=== PATIENT | female | born 1975 | race Caucasian/White ===

== ENCOUNTER 2023-02-20 07:06 | Emergency (ER) | payer OTHER, SELFPAY ==
[2023-02-20 07:09] VITALS: BP 133/95; PULSE 86; RESP 18; TEMP 36.4; O2SAT 100; BMI 30.1
--- NOTE | 2023-02-20 07:20 | CT_ITS ---
The [address] [address] Patient Name: MIRIAM CLARKE MRN: [id number] date: 1975 Sex: F Assigned Patient Location: ER Current Patient Location: ER Accession/Order Number: [id number] Exam Date: 02/20/2023 07:38 Report Date: 02/20/2023 08:05 At the request of: TOMMIE KAPLAN Procedure: CT abdomen pelvis wo con EXAM: CT abdomen pelvis wo con HISTORY: Right flank pain, hx kidney stones. COMPARISON: CT abdomen/pelvis dated 10/23/2021. TECHNIQUE: Routine CT abdomen/pelvis without intravenous contrast. FINDINGS: Right kidney: There are 0.6 cm and 0.2 cm nonobstructive calculi within the right renal pelvis. There is slight increased attenuation of the renal pyramids suggesting nephrocalcinosis. There is no pelvocaliectasis. There is no ureteral calculus or hydroureter. There is no bladder calculus. Left kidney: Stable atrophic left kidney. There are larger and more numerous calculi at the left UPJ and within the proximal left ureter, largest measuring 0.8 x 0.3 x 0.6 cm and 0.5 x 0.3 cm. There is worsened mild to moderate left pelvocaliectasis. The mid and distal left ureter are unremarkable. Lower chest: There is a 0.8 cm nodule within the right breast which is similar to the screening mammogram dated 06/14/2021. Stable 0.3 cm nodular density at the right posterior costophrenic angle. Liver: Stable Jaleesa's lobe configuration of the liver, a variant of normal, with the right lobe measuring 19.4 cm in longitudinal dimension. Gallbladder/biliary tree: Cholecystectomy. There is no biliary dilatation. Pancreas: Unremarkable. Spleen: Unremarkable. Adrenal glands: Unremarkable. Bowel: Nonobstructive bowel gas pattern with a moderate amount of stool within the colon. There are colonic diverticula without diverticulitis. There is inspissated mucus within the appendix which is otherwise unremarkable. The distal esophagus, stomach and small bowel are unremarkable. Inflammation: There is no free air, free fluid or inflammatory reaction. Vasculature: Mild atheromatous calcification abdominal aorta and iliac arteries. The IVC is unremarkable. Lymphadenopathy: There are no pathologically enlarged lymph nodes within the abdomen/pelvis. Pelvis: Previous hysterectomy. There are several pelvic phleboliths. Osseous: There is a stable compression fracture of the L1 vertebral body with less than 15% loss of height. There are degenerative changes at several levels along the spine. There is a 1.5 cm bone island within the left femoral neck. CT/CT abdomen pelvis wo con IMPRESSION: There are 0.6 cm and 0.2 cm nonobstructive calculi within the right renal pelvis. There is slight increased attenuation of the renal pyramids suggesting nephrocalcinosis. There is no pelvocaliectasis. There is no ureteral calculus or hydroureter. There is no bladder calculus. Stable atrophic left kidney. There are larger and more numerous calculi at the left UPJ and within the proximal left ureter, largest measuring 0.8 x 0.3 x 0.6 cm and 0.5 x 0.3 cm. There is worsened mild to moderate left pelvocaliectasis. The mid and distal left ureter are unremarkable. Nonobstructive bowel gas pattern with a moderate amount of stool within the colon. Colonic diverticula without diverticulitis. There is no inflammatory process. Additional chronic findings as described in the body the report. Electronically authenticated by: KARTHIKEYAN DOMINGUEZ Date: 02/20/2023 08:05
[2023-02-20] MEDS: KETOROLAC TROMETHAMINE 30 MG/ML VIAL IVP (07:30)
[2023-02-20] MEDS: ONDANSETRON PF 4 MG/2 ML VIAL IV (07:30)
[2023-02-20] MEDS: 0.9 % SODIUM CHLORIDE 1,000 ML 999 ML IV (07:30)
[2023-02-20 07:33] LABS: Basophils Absolute Auto 0.1 10^3/uL (0.0-0.1); Basophils Percent Auto 0.6 % (0.2-2.0); Eosinophils Absolute Auto 0.4 10^3/uL (0.0-0.7); Eosinophils Percent Auto 4.3 % (0.9-7.0); Hemoglobin 12.5 g/dL (12.0-16.0); Immature Granulocytes Abs Auto 0.02 10^3/uL (0.00-0.03); Immature Granulocytes Pct Auto 0.2 % (0.0-0.5); Lymphocytes Absolute Auto 3.8 10^3/uL (1.2-3.8); Mean Corpuscular HGB Conc 32.1 g/dL (29.9-35.2); Mean Corpuscular Hemoglobin 30.3 pg (26.7-34.0); Mean Corpuscular Volume 94.4 fL (81.0-99.0); Mean Platelet Volume 9.9 fL (9.5-13.5); Monocytes Absolute Auto 0.9 10^3/uL (0.3-0.8); Monocytes Percent Auto 9.2 % (1.7-12.0); Neutrophils Absolute Auto 4.2 10^3/uL (1.4-6.5); Neutrophils Percent Auto 44.7 % (43.0-75.0); Platelet Count 352 10^3/uL (150-450); Red Blood Count 4.13 10^6/uL (4.20-5.40); Red Cell Distribution Width 13.8 % (11.0-15.0); White Blood Count 9.3 10^3/uL (4.0-11.0)
--- NOTE | 2023-02-20 07:36 | ED.GENADUL1 ---
HPI - General Adult General Chief complaint: Urogenital-Female Stated complaint: right side back pain Time Seen by Provider: 02/20/23 07:10 Source: patient Mode of arrival: walk-in History of Present Illness HPI narrative: right flank pain while at work -a round 1am - without any known provocation, injury or activity to cause pain. She admits to prior kidney stones and says the pain is similar. Nausea but no vomiting. No fever or chills. No recent illness. No urinary symptoms. She took tylenol for pain without any improvement. Related Data Previous Rx's Medication Instructions Recorded cephalexin 500 mg capsule 500 mg PO BID 7 days #14 caps 02/20/23 hydrocodone 5 mg-acetaminophen 325 1 tab PO Q6H PRN pain 4 days #14 02/20/23 mg tablet tabs ketorolac 10 mg tablet 10 mg PO Q8H PRN pain #14 tabs 02/20/23 ondansetron 4 mg disintegrating 4 mg PO Q6H PRN nausea and 02/20/23 tablet vomiting #20 tabs tamsulosin 0.4 mg capsule (Flomax) 0.4 mg PO DAILY #14 caps 02/20/23 Allergies Allergy/AdvReac Type Severity Reaction Status Date / Time levofloxacin [From Levaquin] AdvReac Severe Verified 02/20/23 07:11 metoclopramide [From Reglan] AdvReac Severe Verified 02/20/23 07:11 Exam Narrative Exam Narrative: Nurses notes and vital signs reviewed and patient is not hypoxic. afebrile General: Well-appearing and in no apparent distress. Skin: Warm, dry, no pallor noted. No rash to flank. Eye: Pupils are equal, round and EOMI. No scleral icterus. Ears, Nose, Mouth, and Throat: Oral mucosa is moist Cardiovascular: Regular Rate and Rhythm without murmur, gallop or rub. Respiratory: No accessory muscle use or respiratory distress. Lungs are clear to auscultation, no wheezing, rales or rhonchi Back: Right CVA tenderness Musculoskeletal: normal ROM, no calf or popliteal tenderness, no lower extremity edema/swelling GI: Abdomen is soft, non-distended. Normal bowel sounds. Mild right sided tenderness to palpation. No rebound, guarding, or rigidity noted. Neurological: A&O x4. No cranial nerve dysfunction observed. No truncal ataxia. Moves all extremities. Sensation intact. Psychiatric: Cooperative and interactive. Normal mood and affect. Constitutional Vital Signs, click to edit/add: Last Vital Signs Temp 97.6 F 02/20/23 07:09 Pulse 86 02/20/23 07:09 Resp 18 02/20/23 07:09 BP 133/95 H 02/20/23 07:09 Pulse Ox 100 02/20/23 07:09 Course Vital Signs Vital signs: Vital Signs Temperature 97.6 F 02/20/23 07:09 Pulse Rate 86 02/20/23 07:09 Respiratory Rate 18 02/20/23 07:09 Blood Pressure 133/95 H 02/20/23 07:09 Pulse Oximetry 100 02/20/23 07:09 Temperature 97.6 F 02/20/23 07:09 Pulse Rate 86 02/20/23 07:09 Respiratory Rate 18 02/20/23 07:09 Blood Pressure 133/95 H 02/20/23 07:09 Pulse Oximetry 100 02/20/23 07:09 Medical Decision Making MDM Narrative Medical decision making narrative: Peripheral IV established blood drawn and sent for testing. Urine also obtained and sent for testing. The patient had a noncontrast CT scan of the abdomen/pelvis. Normal WBC, CMP notable for slightly elevated BUN and Cr. LFts and electrolytes normal. UA with trace leuk esterase. CT revealed multiple renal stones bilaterally with Left UPJ and proximal left ureteral stones but no right ureteral stones or hydroureter. Patient informed of results. She was discharged home with prescriptions for keflex, Flomax, Zofran, Toradol and [place]. She was given referral info for her urologist - she previously saw Dr Villalobos. ED return if worse. Lab Data Lab results reviewed: Yes I reviewed the patient's lab results Labs: Lab Results 02/20/23 Range/Units 07:14 WBC 9.3 (4.0-11.0) 10^3/uL RBC 4.13 L (4.20-5.40) 10^6/uL Hgb 12.5 (12.0-16.0) g/dL Hct 39.0 (36.0-48.0) % MCV 94.4 (81.0-99.0) fL MCH 30.3 (26.7-34.0) pg MCHC 32.1 (29.9-35.2) g/dL RDW 13.8 (11.0-15.0) % Plt Count 352 (150-450) 10^3/uL MPV 9.9 (9.5-13.5) fL Neut % (Auto) 44.7 (43.0-75.0) % Lymph % (Auto) 41.0 (20.5-60.0) % [place] % (Auto) 9.2 (1.7-12.0) % Eos % (Auto) 4.3 (0.9-7.0) % Baso % (Auto) 0.6 (0.2-2.0) % Neut # (Auto) 4.2 (1.4-6.5) 10^3/uL Lymph # (Auto) 3.8 (1.2-3.8) 10^3/uL [place] # (Auto) 0.9 H (0.3-0.8) 10^3/uL Eos # (Auto) 0.4 (0.0-0.7) 10^3/uL Baso # (Auto) 0.1 (0.0-0.1) 10^3/uL Abs Immat Gran (auto) 0.02 (0.00-0.03) 10^3/uL Imm/Tot Granulo (auto) 0.2 (0.0-0.5) % Sodium 141 (136-145) mmol/L Potassium 3.5 (3.5-5.1) mmol/L Chloride 103 (98-107) mmol/L Carbon Dioxide 27.0 (21.0-32.0) mmol/L Anion Gap 14.5 BUN 22.0 H (7.0-18.0) mg/dL Creatinine 1.22 H (0.55-1.02) mg/dL Est GFR ( Amer) 57 L (>=60) Est GFR (Non-Af Amer) 47 L (>=60) BUN/Creatinine Ratio 18.0 Glucose 99 (74-106) mg/dL Calcium 10.1 (8.5-10.1) mg/dL Total Bilirubin 0.3 (0.2-1.0) mg/dL AST 17 (15-37) U/L ALT 33 (14-59) U/L Alkaline Phosphatase 69 (46-116) U/L Total Protein 7.5 (6.4-8.2) g/dL Albumin 3.8 (3.4-5.0) g/dL Globulin 3.7 g/dL Albumin/Globulin Ratio 1.0 Urine Color Lt. yellow (YELLOW) Urine Clarity Clear (CLEAR) Urine pH 5.5 (5.0-9.0) Ur Specific Lavinia 1.025 (1.005-1.025) Urine Protein Negative (NEG/TRACE) mg/dL Urine Glucose (UA) Negative (NEGATIVE) mg/dL Urine Ketones Negative (NEGATIVE) mg/dL Urine Occult Blood Negative (NEGATIVE) Urine Nitrite Negative (NEGATIVE) Urine Bilirubin Negative (NEGATIVE) Urine Urobilinogen 0.2 (0.2-1.0) EU/dL Ur Leukocyte Esterase Trace A (NEGATIVE) Imaging Data CT scan - abdomen: Radiologist's impression: Patient Name: MIRIAM CLARKE MRN: [id number] date: 1975 Sex: F Assigned Patient Location: ER Current Patient Location: ER Accession/Order Number: [id number] Exam Date: 02/20/2023 07:38 Report Date: 02/20/2023 08:05 At the request of: TOMMIE KAPLAN Procedure: CT abdomen pelvis wo con EXAM: CT abdomen pelvis wo con HISTORY: Right flank pain, hx kidney stones. COMPARISON: CT abdomen/pelvis dated 10/23/2021. TECHNIQUE: Routine CT abdomen/pelvis without intravenous contrast. FINDINGS: Right kidney: There are 0.6 cm and 0.2 cm nonobstructive calculi within the right renal pelvis. There is slight increased attenuation of the renal pyramids suggesting nephrocalcinosis. There is no pelvocaliectasis. There is no ureteral calculus or hydroureter. There is no bladder calculus. Left kidney: Stable atrophic left kidney. There are larger and more numerous calculi at the left UPJ and within the proximal left ureter, largest measuring 0.8 x 0.3 x 0.6 cm and 0.5 x 0.3 cm. There is worsened mild to moderate left pelvocaliectasis. The mid and distal left ureter are unremarkable. Lower chest: There is a 0.8 cm nodule within the right breast which is similar to the screening mammogram dated 06/14/2021. Stable 0.3 cm nodular density at the right posterior costophrenic angle. Liver: Stable Jaleesa's lobe configuration of the liver, a variant of normal, with the right lobe measuring 19.4 cm in longitudinal dimension. Gallbladder/biliary tree: Cholecystectomy. There is no biliary dilatation. Pancreas: Unremarkable. Spleen: Unremarkable. Adrenal glands: Unremarkable. Bowel: Nonobstructive bowel gas pattern with a moderate amount of stool within the colon. There are colonic diverticula without diverticulitis. There is inspissated mucus within the appendix which is otherwise unremarkable. The distal esophagus, stomach and small bowel are unremarkable. Inflammation: There is no free air, free fluid or inflammatory reaction. Vasculature: Mild atheromatous calcification abdominal aorta and iliac arteries. The IVC is unremarkable. Lymphadenopathy: There are no pathologically enlarged lymph nodes within the abdomen/pelvis. Pelvis: Previous hysterectomy. There are several pelvic phleboliths. Osseous: There is a stable compression fracture of the L1 vertebral body with less than 15% loss of height. There are degenerative changes at several levels along the spine. There is a 1.5 cm bone island within the left femoral neck. IMPRESSION: There are 0.6 cm and 0.2 cm nonobstructive calculi within the right renal pelvis. There is slight increased attenuation of the renal pyramids suggesting nephrocalcinosis. There is no pelvocaliectasis. There is no ureteral calculus or hydroureter. There is no bladder calculus. Stable atrophic left kidney. There are larger and more numerous calculi at the left UPJ and within the proximal left ureter, largest measuring 0.8 x 0.3 x 0.6 cm and 0.5 x 0.3 cm. There is worsened mild to moderate left pelvocaliectasis. The mid and distal left ureter are unremarkable. Nonobstructive bowel gas pattern with a moderate amount of stool within the colon. Colonic diverticula without diverticulitis. There is no inflammatory process. Additional chronic findings as described in the body the report. Electronically authenticated by: KARTHIKEYAN DOMINGUEZ Date: 02/20/2023 08:05 Discharge Plan Discharge Chief Complaint: Urogenital-Female Clinical Impression: Kidney stones, UTI (urinary tract infection), Renal colic Patient Disposition: Home, Self-Care Time of Disposition Decision: 08:35 Prescriptions / Home Meds: New ondansetron 4 mg tablet,disintegrating 4 mg PO Q6H PRN (Reason: nausea and vomiting) Qty: 20 0RF tamsulosin [Flomax] 0.4 mg capsule 0.4 mg PO DAILY Qty: 14 0RF ketorolac 10 mg tablet 10 mg PO Q8H PRN (Reason: pain) Qty: 14 0RF cephalexin 500 mg capsule 500 mg PO BID 7 Days Qty: 14 0RF hydrocodone-acetaminophen 5-325 mg tablet 1 tab PO Q6H PRN (Reason: pain) 4 Days Qty: 14 0RF Rx Instructions: ICD 10 = N20 - kidney stone Instructions: Kidney Stones (ED), Urinary Tract Infection in Women (ED) Stand Alone Forms: Portal Instructions Referrals: Physician,Non-Staff, MD [Primary Care Provider] - 1 week Discharge Date/Time: 02/20/23 08:56
[2023-02-20 07:49] LABS: Bilirubin Urine NEGATIVE (NEGATIVE); Blood Urine NEGATIVE (NEGATIVE); Clarity Urine CLEAR (CLEAR); Color Urine LT. YELLOW (YELLOW); Glucose Urine UA NEGATIVE (NEGATIVE); Ketones Urine NEGATIVE (NEGATIVE); Leukocyte Esterase Urine TRACE (NEGATIVE); Nitrite Urine NEGATIVE (NEGATIVE); Protein Urine NEGATIVE (NEG/TRACE); Specific Gravity Urine 1.025 (1.005-1.025); Urobilinogen Urine 0.2 EU/dL (0.2-1.0); pH Urine 5.5 (5.0-9.0)
[2023-02-20 07:53] LABS: Alanine Aminotransferase 33 U/L (14-59); Albumin Level 3.8 g/dL (3.4-5.0); Alkaline Phosphatase 69 U/L (46-116); Anion Gap 14.5; Aspartate Amino Transferase 17 U/L (15-37); Bilirubin Total 0.3 mg/dL (0.2-1.0); Calcium 10.1 mg/dL (8.5-10.1); Chloride 103 mmol/L (98-107); Estimated GFR (African America 57 (>=60); Estimated GFR (Non-African Ame 47 (>=60); Globulin 3.7 g/dL; Glucose 99 mg/dL (74-106); Potassium 3.5 mmol/L (3.5-5.1); Sodium 141 mmol/L (136-145); Total Protein 7.5 g/dL (6.4-8.2)
[2023-02-20 07:54] LABS: Urine Microscopic Indicated NO
[2023-02-20] MEDS: HYDROMORPHONE HCL 1 MG/ML CARTRIDGE IV (08:31)
== END 2023-02-20 08:56 | disposition home or self-care (01) ==
PROVIDERS: Emergency Provider Emergency Medicine
DX: N39.0 Urinary tract infection, site not specified (principal); N20.0 Calculus of kidney; Z90.49 Acquired absence of other specified parts of digestive tract; Z87.442 Personal history of urinary calculi
CPT/HCPCS: 36415; 74176; 80053; 81003; 85025; 96374; 96375; 99284; J1170

== ENCOUNTER 2023-02-21 21:59 | Emergency (ER) | payer OTHER, SELFPAY ==
[2023-02-21 22:08] VITALS: BP 117/70; PULSE 74; RESP 18; TEMP 37.2; O2SAT 99; BMI 31.1
--- OUTSIDE RECORDS SUMMARY | 2023-02-21 22:09 | XMS_ITS | CCD ---
Author Name Unknown Address [address] [facility] [address] [place] [address] Organization [facility] Care Team Providers Care Can Line Operator Name Role Phone KEVIN CASTILLO Primary Care Physician KRISTY ., DR KEVIN Lipscomb Primary Care Unavailable TEJ ., DR MCDUFFIE Admitting Unavailable TEJ ., DR MCDUFFIE Attending Unavailable CASTILLO ., DR KEVIN Lipscomb Consulting Unavailable CASTILLO ., DR KEVIN Lipscomb Primary Care Unavailable CASTILLO ., DR KEVIN Lipscomb Attending Unavailable CASTILLO ., DR KEVIN Lipscomb Admitting Unavailable CANDACE, DR STEFAN Schuster Consulting Unavailable CASTILLO ., DR KEVIN Lipscomb Primary Care Unavailable DIVINA CEDILLO Attending Unavailable KENNEY ., BOBO MARTINEZ Consulting UnavailDIVINA Olivares Admitting Unavailable CANDACE, DR STEFAN Schuster Consulting Unavailable WILFREDO .MYRA Attending Unavailable CASTILLO ., DR KEVIN Lipscomb Primary Care Unavailable LUE .MYRA Admitting Unavailable RUTHIE GABRIEL Consulting Unavailable LUE ., MYRA Damian Consulting Unavailable LUE ., MYRA Damian Attending Unavailable CASTILLO ., DR KEVIN Lipscomb Primary Care Unavailable LUE .MYRA Admitting Unavailable LUE ., MYRA Damian Consulting Unavailable CASTILLO ., DR KEVIN Lipscomb Primary Care Unavailable BARDALES ., DR WHITNEY Brand Attending Unavailable BARDALES ., DR WHITNEY Brand Admitting Unavailable CASTILLO ., DR KEVIN Lipscomb Primary Care Unavailable GLADIS ., HARRY Attending Unavailable SAADIA SUNSHINE Consulting Unavailable GLADIS ., HARRY Admitting Unavailable GLADIS ., HARRY Consulting Unavailable MICHELLE SMITH Consulting Unavailable KENNEY ., BOBO MARTINEZ Consulting Unavailrenae NUNEZ, DR GIL Bond Admitting Unavailrenae NUNEZ, DR GIL Bond Attending Unavailrenae e CASTILLO ., DR KEVIN Lipscomb Primary Care Unavailable SERA SCHULER Consulting Unavailable CASTILLO ., DR KEVIN Lipscomb Consulting Unavailable CASTILLO ., DR KEVIN Lipscomb Primary Care Unavailable CASTILLO ., DR KEVIN Lipscomb Attending Unavailable CASTILLO ., DR KEVIN Lipscomb Admitting Unavailable ZIEBER, DR ARAMIS Caldwell Consulting Unavailable ROSA MARIA MARTINEZ ., DR SILVIO Barrett Admitting Unavaila ble ROSA MARIA MARTINEZ ., DR SILVIO Barrett Consulting Unavaila ble CASTILLO ., DR KEVIN Lipscomb Primary Care Unavailable CRANE JR ., DR SILVIO Barrett Attending Unavaila ble POLICARO, TAMMIE Consulting Unavailable CASTILLO ., DR KEVIN Lipscomb Primary Care Unavailable LUE ., MYRA Damian Admitting Unavailable LUE ., MYRA Damian Attending Unavailable MISC, DR LEBRON Consulting Unavailable CASTILLO ., DR EKVIN Lipscomb Primary Care Unavailable MISC, DR LEBRON Attending Unavailable MISC, DR LEBRON Admitting Unavailable CASTILLO ., DR KEVIN Lipscomb Primary Care Unavailable CASTILLO ., DR KEVIN Lipscomb Consulting Unavailable CASTILLO ., DR KEVIN Lipscomb Attending Unavailable CASTILLO ., DR KEVIN Lipscomb Admitting Unavailable ZIEBER, DR ARAMIS Caldwell Consulting Unavailable CASTILLO ., DR KEVIN Lipscomb Primary Care Unavailable TEJ ., DR MCDUFFIE Admitting Unavailable TEJ ., DR CMDUFFIE Consulting Unavailable TEJ ., DR MCDUFFIE Attending Unavailable CASTILLO ., DR KEVIN Lipscomb Attending Unavailable CASTILLO ., DR KEVIN Lipscomb Primary Care Unavailable CASTILLO ., DR KEVIN Lipscomb Consulting Unavailable CASTILLO ., DR KEVIN Lipscomb Admitting Unavailable MD Cory Story Attending Unavailable MD Cory Story Attending Unavailable Unavailable Unavailable Unavailable Allergies Allergy Classification Reported Allergen(s) Allergy Type Date of Onset Reaction(s) Facility (4 sources) levoFLOXacin; Translations: [Levofloxacin] Drug Allergy Unknown (qualifier value) [facility] (4 sources) Metoclopramide; Translations: [Metoclopramide ] Drug Allergy Unknown (qualifier value) [facility] (6 sources) Penicillins; Translations: [penicillins] Allergy to substance Unknown (qualifier value) [facility] (3 sources) Iothalamate; Translations: [Reglan] Drug Allergy 4 [facility] (3 sources) levoFLOXacin; Translations: [Levaquin] Drug Allergy 6 [facility] (2 sources) Penicillin Drug Allergy 7 [facility] Medications Current Medications Medication Drug Class(es) Dates Sig (Normalized) Sig (Original) amitriptyline hydrochloride 10 mg oral tablet (1 source) Tricyclic Antidepressant Start: 04-04-2018 take 20 mg by mouth once daily at bedtime Amitriptyline Active 20 MG Oral Daily at bedtime April 04, 2018 12:09pm Cymbalta 30 mg Cap-DR (2 sources) Start: 09-21-2020 take 1 mg by mouth twice daily Cymbalta 30 mg Cap-DR mg, Oral, BID, Refills(s) 0 Start Date: 09/21/20 Status: Ordered diclofenac sodium 50 mg delayed release oral tablet (1 source) Nonsteroidal Anti-inflammatory Drug Start: 10-20-2021 take 1 tablet by mouth three times daily as needed for pain diclofenac sodium 50 mg Oral EC Tab 50 mg = 1 tab(s), Oral, TID, PRN as needed for pain, # 60 tab(s), Refills(s) 0, Pharmacy: [facility]/pharmacy #[id number], 161, cm, 10/20/21 9:24:00 EDT, Height/Length Dosing, 94, kg, 10/20/21 9:24:00 EDT, Weight Dosing Start Date: 10/20/21 Status: Ordered DULoxetine 30 mg delayed release oral capsule (1 source) Serotonin and Norepinephrine Reuptake Inhibitor Start: 09-21-2020 take 1 mg by mouth twice daily Cymbalta 30 mg Cap-DR mg, Oral, BID, Refills(s) 0 Start Date: 09/21/20 Status: Ordered gabapentin 300 mg oral capsule (3 sources) Anti-epileptic Agent Start: 08-03-2021 gabapentin 300 mg Cap Refills(s) 0 Start Date: 08/03/21 Status: Ordered meloxicam 15 mg oral tablet (1 source) Nonsteroidal Anti-inflammatory Drug Start: 04-04-2018 take 15 mg by mouth once daily Meloxicam Active 15 MG Oral daily April 04, 2018 12:09pm predniSONE (3 sources) Start: 08-03-2021 predniSONE 10 mg Tab Refills(s) 0 Start Date: 08/03/21 Status: Ordered SUMAtriptan 50 mg oral tablet (1 source) Serotonin-1b and Serotonin-1d Receptor Agonist Start: 04-04-2018 take 50 mg by mouth twice daily Sumatriptan Succinate Active 50 MG Oral Twice daily April 04, 2018 12:09pm tamsulosin hydrochloride 0.4 mg oral capsule (1 source) alpha-Adrenergic Vicky Start: 10-20-2021 take 1 capsule by mouth once daily Flomax 0.4 mg Cap 0.4 mg = 1 cap(s), Oral, Daily, # 30 cap(s), Refills(s) 0, Pharmacy: [facility]/pharmacy #[id number], 161, cm, 10/20/21 9:24:00 EDT, Height/Length Dosing, 94, kg, 10/20/21 9:24:00 EDT, Weight Dosing Start Date: 10/20/21 Status: Ordered Problems Active Problems Problem Classification Problem Date Documented Date Episodic/Chronic Calculus of urinary tract (16 sources) Kidney stone; Translations: [Calculus of kidney] Onset: 08-03-2021 Episodic Disorders of teeth and jaw (4 sources) Other specified disorders of teeth and supporting structures; Translations: [OTH SPEC DISORDERS TEETH SUPP STRCT] Onset: 03-24-2022 Episodic Immunizations and screening for infectious disease (2 sources) Carrier or suspected carrier of Methicillin resistant Staphylococcus aureus; Translations: [Encounter for screening for human papillomavirus (HPV)] Onset: 10-27-2021 Episodic Other aftercare (1 source) Other skilled nursing (current) drug therapy; Translations: [OTH MCC CURRENT DRUG THERAPY] Onset: 03-28-2022 Episodic Other connective tissue disease (1 source) Fibromyalgia; Translations: [FIBROMYALGIA] Onset: 03-28-2022 Episodic Other lower respiratory disease (1 source) Personal history of pneumonia (recurrent); Translations: [PERSONAL HX OF PNEUMONIA RECURRENT] Onset: 03-28-2022 Episodic Other nervous system disorders (1 source) Atypical facial pain; Translations: [ATYPICAL FACIAL PAIN] Onset: 03-28-2022 Episodic Residual codes; unclassified (1 source) Acquired absence of other specified parts of digestive tract; Translations: [ACQ ABSENCE OTH PART DIGESTV TRACT] Onset: 03-28-2022 Episodic Residual codes; unclassified (1 source) Acquired absence of both cervix and uterus; Translations: [ACQUIRED ABSENCE BOTH CERVIX AND UTERUS] Onset: 03-28-2022 Episodic Substance-related disorders (1 source) Nicotine dependence, cigarettes, uncomplicated; Translations: [NICOTINE DEPEND CIGARETTES UNCOMP] Onset: 03-28-2022 Chronic Unclassified (3 sources) Asymptomatic microscopic hematuria 09-21-2020 Unclassified (4 sources) CONTACT W/AND (SUSP) EXPOS COVID-19; Translations: [CONTACT W/AND (SUSP) EXPOS COVID-19] Onset: 10-21-2021 Past or Other Problems Problem Classification Problem Date Documented Date Episodic/Chronic Abdominal pain (9 sources) Abdominal pain; Translations: [Unspecified abdominal pain] Onset: 08-03-2021 Episodic E Codes: Fall (1 source) Fall on same level from slipping, tripping and stumbling without subsequent striking against object, initial encounter; Translations: [FALL SAME LVL SLIP NO STRK OBJ INIT] Onset: 06-08-2021 Episodic Genitourinary symptoms and ill-defined conditions (9 sources) Nocturia; Translations: [Poor stream of urine] Onset: 10-27-2021 09-21-2020 Episodic Nonmalignant breast conditions (7 sources) Unspecified lump in the right breast, upper outer quadrant; Translations: [Unspecified lump in the right breast, lower inner quadrant] Onset: 06-16-2021 Episodic Other connective tissue disease (1 source) Synovial cyst of popliteal space [Brock], right knee; Translations: [SYNOVIAL CYST POP SPACE RIGHT KNEE] Onset: 06-08-2021 Episodic Other diseases of kidney and ureters (1 source) Hydronephrosis with renal and ureteral calculous obstruction; Translations: [HYDRONPHROS RENL AND URETRL CALCUL OBST] Onset: 10-25-2021 Episodic Other non-traumatic joint disorders (3 sources) Pain in right knee; Translations: [PAIN IN RIGHT KNEE] Onset: 06-06-2021 Episodic Other screening for suspected conditions (not mental disorders or infectious disease) (13 sources) Encounter for screening for malignant neoplasm of cervix; Translations: [Other abnormal and inconclusive findings on diagnostic imaging of breast] Onset: 06-14-2021 Episodic Residual codes; unclassified (1 source) Family history of malignant neoplasm of breast; Translations: [FAMILY HX MALIG NEOPLASM OF BREAST] Onset: 06-16-2021 Episodic Residual codes; unclassified (1 source) Family history of malignant neoplasm of bladder; Translations: [FAM HX MALIGNANT NEOPLASM BLADDER] Onset: 06-16-2021 Episodic Residual codes; unclassified (1 source) Family history of malignant neoplasm of ovary; Translations: [FAM HX MALIGNANT NEOPLASM OVARY] Onset: 06-16-2021 Episodic Residual codes; unclassified (1 source) Family history of malignant neoplasm of prostate; Translations: [FAMILY HX MALIG NEOPLASM PROSTATE] Onset: 06-16-2021 Episodic Sprains and strains (1 source) Sprain of unspecified site of right knee, initial encounter; Translations: [SPRAIN UNS SITE RT KNEE INITIAL] Onset: 06-08-2021 Episodic Unclassified (1 source) CONTACT W/AND (SUSP) EXPOS COVID-19; Translations: [CONTACT W/AND (SUSP) EXPOS COVID-19] Onset: 10-19-2021 Urinary tract infections (5 sources) Urinary tract infectious disease; Translations: [Urinary tract infection, site not specified] Onset: 08-03-2021 Episodic Results Test Name Value Interpretation Reference Range Facil ity Provider Letteron 02-02-2023 Provider Letter [address] [place] [address] February 02, 2023 MIRIAM BRYAN [address] [place] [id number] : 1975 To Whom It May Concern, Please excuse above patient from work. May Return to Work On:02/02/2023 Sincerely, DHEERAJ Cortez Normal [facility] Ambulatory Visit Summaryon 1 04-02-2022 Ambulatory Visit Summary MIRIAM BRYAN :1975 Visit Date:01/30/2023 Ambulatory Visit Instructions Your Diagnosis COVID-19 Excessive dietary caloric intake Your Care Team Attending Physician - Cory Story MD Primary Care Physician - KRISTY PASTRANA, KEVIN Lipscomb This Is Your Medications List azithromycin (azithromycin 250 mg Tab 5-day Dose Pack (Z-Rishi)) benzonatate (benzonatate 200 mg oral capsule) methylPREDNISolone (Medrol Dosepack 4 mg Tab) semaglutide (Ozempic 2 mg/3 mL (0.25 mg or 0.5 mg dose) subcutaneous solution) Procedures Performed ESWL - Extracorporeal shockwave lithotripsy for renal calculus (2013). What to do next Scheduled Follow-Up Appointments Sunday 8:30 AM EST With: Cory Story MD Where: [facility] Normal [facility] PAP ACOG PANEL 2: 30 to 65on 11-03-[address] [facility] Comment on above: Result Comment: Perf ormed at: WB Performed By: #### [id number] #### [facility] [address] [address] [address] Norah Campbell Age Gdln ACOG Testing 30-65 [facility] Comment on above: Performed By: #### [id number] #### [facility] [address] [address] [address] Norah Campbell DIAGNOSIS: Comment [facility] Comment on above: Result Comment: NEGA TIVE FOR INTRAEPITHELIAL LESION OR MALIGNANCY. Performed at: WB Performed By: #### [id number] #### [facility] [address] [place] [address] Dr. Norah Campbell HPV Aptima Negative Normal Negative [facility] Comment on above: Result Comment: This nucleic acid amplification test detects fourteen high-risk HPV types (16,18,31,33,35,39,45,51,52,56,58,59,66,68) without differentiation. Performed at: =G Performed By: #### [id number] #### [facility] [address] [address] [address] Norah Campbell Methodology: Comment [facility] Comment on above: Result Comment: This liquid based ThinPrep(R) pap test was screened with the use of an image guided system. Performed at: WB Performed By: #### [id number] #### [facility] [address] [address] [address] Norah Campbell Note: Comment [facility] Comment on above: Result Comment: The Pap smear is a screening test designed to aid in the detection of premalignant and malignant conditions of the uterine cervix. It is not a diagnostic procedure and should not be used as the sole means of detecting cervical cancer. Both false-positive and false-negative reports do occur. . Performed at: WB Performed By: #### [id number] #### [facility] [address] [address] [address] Norah Campbell Performed by: Comment Normal [facility] Comment on above: Result Comment: Tigist Keyes, Refrigerator Tester (ASCP) Performed at: WB Performed By: #### [id number] #### [facility] [address] [place] [address] Dr. Norah Campbell Specimen adequacy: Comment Normal [facility] Comment on above: Result Comment: Sati sfactory for evaluation. Performed at: WB Performed By: #### [id number] #### [facility] [address] [place] [address] Dr. Norah Campbell XR KUB 1 VIEWon 11-02-2021 XR KUB 1 VIEW EXAMINATION: XR KUB 1 VIEW HISTORY: Urolithiasis COMPARISON: 10/11/2021, CT 10/23/2021 FINDINGS: KIDNEY/URETER - RIGHT: No visible renal or ureteral calcifications. KIDNEY/URETER - LEFT: No visible renal or ureteral calcifications. PELVIS: No visible ureteral calcifications. Any visible calcifications favor phleboliths. BOWEL: No abnormal dilation or deviation. BONES: No acute abnormality. OTHER: Negative. No abnormal gaseous collections. IMPRESSION: No definite urinary tract calculi, the calcifications seen by CT exam not definitively seen on plain x-ray Electronically authenticated by: STEFAN MARIA Date: 2021-11-02 11:19 Normal [facility] CBC AUTO DIFFon 10-26-2021 BASO # 0.0 103/ul Normal 0.0-0.1 [facility] Comment on above: Performed By: #### C BC #### [facility] [address] [place] [address] Dr. Norah Campbell Basophils/100 WBC (Bld) 0.3 % Normal 0.2-2.0 [facility] Comment on above: Performed By: #### C BC #### [facility] [address] [place] [address] Dr. Norah Campbell EO # 0.6 103/ul Normal 0.0-0.7 [facility] Comment on above: Performed By: #### C BC #### [facility] [address] [place] [address] Dr. Norah Campbell Eosinophils/100 WBC (Bld) 5.9 % Normal 0.9-7.0 [facility] Comment on above: Performed By: #### C BC #### [facility] [address] [place] [address] Dr. Norah Campbell Erythrocyte distribution width (RBC) [Ratio] 14.6 % Normal 11.0-15.0 [facility] Comment on above: Performed By: #### C BC #### [facility] [address] [place] [address] Dr. Norah Campbell Hematocrit (Bld) [Volume fraction] 38.7 % Normal 36.0-48.0 [facility] Comment on above: Performed By: #### C BC #### [facility] [address] [place] [address] Dr. Norah Campbell Hemoglobin (Bld) [Mass/Vol] 12.4 g/dL Normal 12.0-16.0 [facility] Comment on above: Performed By: #### C BC #### [facility] [address] [place] [address] Dr. Norah Campbell IG # 0.03 10e3/ul Normal 0.00-0.03 [facility] Comment on above: Performed By: #### C BC #### [facility] [address] [place] [address] Dr. Norah Campbell IG % 0.3 % Normal 0.0-0.5 [facility] Comment on above: Performed By: #### C BC #### [facility] [address] [place] [address] Dr. Norah Campbell LYMPH # 3.5 103/ul Normal 1.2-3.8 [facility] Comment on above: Performed By: #### C BC #### [facility] [address] [place] [address] Dr. Norah Campbell Lymphocytes/100 WBC (Bld) 34.3 % Normal 20.5-60.0 [facility] Comment on above: Performed By: #### C BC #### [facility] [address] [place] [address] Dr. Norah Campbell MANUAL DIFF REQ NO Normal [facility] Comment on above: Performed By: #### C BC #### [facility] [address] [address] [address] Norah Campbell MCH (RBC) [Entitic mass] 29.5 pg Normal 26.7-34.0 [facility] Comment on above: Performed By: #### C BC #### [facility] [address] [place] [address] Dr. Norah Campbell MCHC (RBC) [Mass/Vol] 32.0 g/dL Normal 29.9-35.2 [facility] Comment on above: Performed By: #### C BC #### [facility] [address] [place] [address] Dr. Norah Campbell MCV (RBC) [Entitic vol] 91.9 fL Normal 81.0-99.0 [facility] Comment on above: Performed By: #### C BC #### [facility] [address] [place] [address] Dr. Norah Campbell MONO # 0.8 103/ul Normal 0.3-0.8 [facility] Comment on above: Performed By: #### C BC #### [facility] [address] [place] [address] Dr. Norah Campbell Monocytes/100 WBC (Bld) 8.2 % Normal 1.7-12.0 [facility] Comment on above: Performed By: #### C BC #### [facility] [address] [place] [address] Dr. Norah Campbell NEUT # 5.2 103/ul Normal 1.4-6.5 [facility] Comment on above: Performed By: #### C BC #### [facility] [address] [place] [address] Dr. Norah Campbell Neutrophils/100 WBC (Bld) 51.0 % Normal 43.0-75.0 [facility] Comment on above: Performed By: #### C BC #### [facility] [address] [place] [address] Dr. Norah Campbell Platelet mean volume (Bld) [Entitic vol] 9.8 fL Normal 9.5-13.5 [facility] Comment on above: Performed By: #### C BC #### [facility] [address] [place], [place] [address] Dr. Norah Campbell PLT 337 103/ul Normal 150-450 [facility] Comment on above: Performed By: #### C BC #### [facility] [address] [place], [place] [address] Dr. Norah Campbell RBC 4.21 106/ul Normal 4.20-5.40 [facility] Comment on above: Performed By: #### C BC #### [facility] [address] [place], [place] [address] Dr. Norah Campbell WBC 10.3 103/ul Normal 4.0-11.0 [facility] Comment on above: Performed By: #### C BC #### [facility] [address] [place], [place] [address] Dr. Norah Campbell CULTURE URINEon 10-26-2021 CULTURE URINE Isolate 1 Proteus mirabilis 100,000 cfu/mL of ORGANISM 1 Proteus mirabilis ANTIBIOTIC M.I.C RX STATUS Ampicillin <=2 S F Ampicillin/Sulbactam <=2 S F Piperacillin/Tazobacta m <=4 S F Cefazolin <=4 S F Ceftazidime <=1 S F Ceftriaxone <=1 S F Ertapenem <=0.5 S F Imipenem 2 S F Amikacin <=2 S F Gentamicin <=1 S F Tobramycin <=1 S F Ciprofloxacin <=0.25 S F Levofloxacin <=0.12 S F Nitrofurantoin 128 R F Trimethoprim/Sulfameth oxazole <=20 S F Normal [facility] Comment on above: Performed By: #### U RCX ####[facility] [address] [place], [place] [address]PlDr. Norah Campbell Covid-19 PCR (CVDTBH)on 09-28 SARS-CoV-2 (COVID-19) RNA DAVID+probe Ql (Unsp spec) Not detected Normal NOT DETECTED [facility] Comment on above: Result Comment: This test is not yet approved or cleared by the [place] FDA. When there are no FDA-approved or cleared tests available, and other criteria are met, FDA can make tests available under an emergency access mechanism called an Emergency Use Authorization (EUA). The EUA for this test is supported by the [place] Inspector of Health and Human Service's (HHS's) declaration that circumstances exist to justify the emergency use of in vitro diagnostics for the detection and/or diagnosis of the virus that causes COVID-19. This EUA will remain in effect (meaning this test can be used) for the duration of the COVID-19 declaration justifying emergency of IVDs, unless it is terminated or revoked by FDA (after which the test may no longer be used). When diagnostic testing is negative, the possibility of a false negative should be considered in the context of a patient's recent exposures and the presence of clinical signs and symptoms consistent with SARS-CoV-2. Performed By: #### [facility] ####[facility] [id number] [address]Dr. Norah Campbell PROF CHEM 8 (BAS METB)on Anion gap [Moles/Vol] 11.4 mmol/L Normal [facility] Comment on above: Performed By: #### B MP #### [facility] [address] [address] [address] Norah Campbell Calcium [Mass/Vol] 9.4 mg/dL Normal 8.5-10.1 [facility] Comment on above: Performed By: #### B MP #### [facility] [address] [address] [address] Norah Campbell Chloride [Moles/Vol] 104 mmol/L Normal 98-107 [facility] Comment on above: Performed By: #### B MP #### [facility] [address] [address] [address] Norah Campbell CO2 [Moles/Vol] 31.7 mmol/L Normal 21.0-32.0 [facility] Comment on above: Performed By: #### B MP #### [facility] [address] [address] [address] Norah Campbell Creatinine [Mass/Vol] 1.40 mg/dL Critically high 0.55-1.02 [facility] Comment on above: Performed By: #### B MP #### [facility] [address] [address] [address] Norah Campbell EGFR-AF SWISS 49 mL/min/1.73m2 Critically low >=60 [facility] Comment on above: Performed By: #### B MP #### [facility] [address] [address] [address] Norah Campbell EGFR-NON AF SWISS 40 mL/min/1.73m2 Critically low >=60 [facility] Comment on above: Performed By: #### B MP #### [facility] [address] [address] [address] Norah Campbell Glucose [Mass/Vol] 104 mg/dL Normal 74-106 [facility] Comment on above: Performed By: #### B MP #### [facility] [address] [address] [address] Norah Campbell Potassium [Moles/Vol] 4.1 mmol/L Normal 3.5-5.1 [facility] Comment on above: Performed By: #### B MP #### [facility] [address] [address] [address] Norah Campbell Sodium [Moles/Vol] 143 mmol/L Normal 136-145 [facility] Comment on above: Performed By: #### B MP #### [facility] [address] [address] [address] Norah Campbell Urea nitrogen [Mass/Vol] 26.0 mg/dL Critically high 7.0-18.0 [facility] Comment on above: Performed By: #### B MP #### [facility] [address] [address] [address] Norah Campbell Urea nitrogen/Creatinin e [Mass ratio] 18.6 mg/mg Normal [facility] Comment on above: Performed By: #### B MP #### [facility] [address] [address] [address] Norah Campbell PROTIMEon 10-26-2021 INR Coag (PPP) [Relative time] 0.95 {INR} Normal [facility] Comment on above: Performed By: #### P T, PTT ####[facility] [address] [address]Dr. Norah Campbell INR GUIDELINES SEE BELOW Normal [facility] Comment on above: Result Comment: AKI RED INR: 2.0 - 3.0 CONDITIONS NOT LISTED BELOW 2.5 - 3.5 FOR PROSTHETIC HEART VALVE REPLACEMENT 2.5 - 3.5 RECURRENT THROMBOSIS Performed By: #### P T, PTT ####[facility] [address] [place], [place] [address]Dr. Norah Campbell PT Coag (PPP) [Time] 10.3 s Normal 9.0-11.6 [facility] Comment on above: Performed By: #### P T, PTT ####[facility] [address] [place], [place] [address]Dr. Norah Campbell PTTon 10-26-2021 aPTT Coag (Bld) [Time] 23.9 s Normal 22.3-36.2 [facility] Comment on above: Performed By: #### P T, PTT ####[facility] [address] [place], [place] [address]Dr. Norah Campbell CBC AUTO DIFFon 10-23-2021 BASO # 0.0 103/ul Normal 0.0-0.1 [facility] Comment on above: Performed By: #### C BC ####[facility] [address] [place], [place] [address]Dr. Norah Campbell Basophils/100 WBC (Bld) 0.3 % Normal 0.2-2.0 [facility] Comment on above: Performed By: #### C BC ####[facility] [address] [place], [place] [address]Dr. Norah Campbell EO # 0.0 103/ul Normal 0.0-0.7 [facility] Comment on above: Performed By: #### C BC ####[facility] [address] [place], [place] [address]Dr. Norah Campbell Eosinophils/100 WBC (Bld) 0.7 % Critically low 0.9-7.0 [facility] Comment on above: Performed By: #### C BC ####[facility] [address] [address]Dr. Norah Campbell Erythrocyte distribution width (RBC) [Ratio] 14.2 % Normal 11.0-15.0 [facility] Comment on above: Performed By: #### C BC ####[facility] [address] [address]Dr. Norah Campbell Hematocrit (Bld) [Volume fraction] 39.8 % Normal 36.0-48.0 [facility] Comment on above: Performed By: #### C BC ####[facility] [address] [place], [place] [address]Dr. Norah Campbell Hemoglobin (Bld) [Mass/Vol] 12.6 g/dL Normal 12.0-16.0 [facility] Comment on above: Performed By: #### C BC ####[facility] [address] [place], [place] [address]Dr. Norah Campbell IG # 0.05 10e3/ul Critically high 0.00-0.03 [facility] Comment on above: Performed By: #### C BC ####[facility] [address] [place], [place] [address]Dr. Norah Campbell IG % 0.9 % Critically high 0.0-0.5 [facility] Comment on above: Performed By: #### C BC ####[facility] [address] [place], [place] [address]Dr. Norah Campbell LYMPH # 1.3 103/ul Normal 1.2-3.8 [facility] Comment on above: Performed By: #### C BC ####[facility] [address] [place], [place] [address]Dr. Norah Campbell Lymphocytes/100 WBC (Bld) 22.1 % Normal 20.5-60.0 [facility] Comment on above: Performed By: #### C BC ####[facility] [address] [place], [place] [address]Dr. Norah Campbell MANUAL DIFF REQ NO Normal [facility] Comment on above: Performed By: #### C BC ####[facility] [address] [id number]. Norah Adrian MCH (RBC) [Entitic mass] 29.0 pg Normal 26.7-34.0 [facility] Comment on above: Performed By: #### C BC ####[facility] [address] [address]Dr. Norah Adrian MCHC (RBC) [Mass/Vol] 31.7 g/dL Normal 29.9-35.2 [facility] Comment on above: Performed By: #### C BC ####[facility] [address] [place], [place] [address]Dr. Merapatria Campbell MCV (RBC) [Entitic vol] 91.5 fL Normal 81.0-99.0 [facility] Comment on above: Performed By: #### C BC ####[facility] [address] [place], [place] [address]Dr. Norah Campbell MONO # 0.3 103/ul Normal 0.3-0.8 [facility] Comment on above: Performed By: #### C BC ####[facility] [address] [place], [place] [address]Dr. Merapatria Campbell Monocytes/100 WBC (Bld) 4.8 % Normal 1.7-12.0 [facility] Comment on above: Performed By: #### C BC ####[facility] [address] [place], [place] [address]Dr. Norah Campbell NEUT # 4.2 103/ul Normal 1.4-6.5 [facility] Comment on above: Performed By: #### C BC ####[facility] [address] [place], [place] [address]Dr. Norah Campbell Neutrophils/100 WBC (Bld) 71.2 % Normal 43.0-75.0 [facility] Comment on above: Performed By: #### C BC ####[facility] [address] [place], [place] [address]Dr. Norah Campbell Platelet mean volume (Bld) [Entitic vol] 10.2 fL Normal 9.5-13.5 [facility] Comment on above: Performed By: #### C BC ####[facility] [address] [place], [place] [address]Vx. Norah Campbell PLT 329 103/ul Normal 150-450 [facility] Comment on above: Performed By: #### C BC ####[facility] [address] [place], [place] [address]Yh. Norah Campbell RBC 4.35 106/ul Normal 4.20-5.40 [facility] Comment on above: Performed By: #### C BC ####[facility] [address] [place], [place] [address]Sk. Norah Campbell WBC 5.8 103/ul Normal 4.0-11.0 [facility] Comment on above: Performed By: #### C BC ####[facility] [address] [place], [place] [address]Ic. Nor[address] CT ABD/PELVIS WO CONon 10-23 CT ABD/PELVIS WO CON EXAMINATION: CT ABD/PELVIS WO CON, 10/23/2021 12:59 PM PDT HISTORY: CALCULUS OF KIDNEY COMPARISON: 10/17/2021 TECHNIQUE: CT scan of the abdomen and pelvis was performed without IV contrast. CT dose reduction technique was used, including Automated Exposure Control. FINDINGS: Lung: No significant finding. Liver: No significant finding. Gallbladder: Absent. Spleen: No significant finding. Pancreas: No significant finding. Adrenal glands: No significant finding. Kidneys, ureters and bladder: Unchanged 8 mm left renal calculus. Unchanged 6 mm left proximal ureteral calculus. Mild left hydronephrosis. Left kidney is mildly atrophic when compared to the right. Unchanged 4 mm right renal calculus. Bowel: Colonic diverticulosis. Appendix visualized without findings of appendicitis. Peritoneum/retroperito neum: No significant finding. Lymph nodes: No significant finding. Vessels: No significant finding. Body wall: No significant finding. Reproductive: No significant finding. Bones: No significant finding. IMPRESSION: Multiple bilateral renal calculi, including obstructing left UPJ stone and mild left hydronephrosis are unchanged. Electronically authenticated by: SERA SCHULER Date: 2021-10-23 16:42 Normal [facility] ER URINE PROFILEon 2 Bilirubin Ql (U) Negative Normal NEGATIVE [facility] Comment on above: Performed By: #### P REGU, ERUR, UMICRO #### [facility] [address] [address] [address] Norah Campbell Clarity (U) CLEAR Normal CLEAR [facility] Comment on above: Performed By: #### P REGU, ERUR, UMICRO #### [facility] [address] [address] [address] Norah Campbell Color (U) LT. YELLOW Normal YELLOW [facility] Comment on above: Performed By: #### P REGU, ERUR, UMICRO #### [facility] [address] [place] [address] Dr. Norah GARZON A micrscopic examination will be performed if indicated. Normal [facility] Comment on above: Performed By: #### P REGU, ERUR, UMICRO #### [facility] [address] [address] [address] Norah Campbell Glucose Ql (U) Negative Normal NEGATIVE [facility] Comment on above: Performed By: #### P REGU, ERUR, UMICRO #### [facility] [address] [address] [address] Norah Campbell Hemoglobin Ql (U) MODERATE Abnormal NEGATIVE [facility] Comment on above: Performed By: #### P REGU, ERUR, UMICRO #### [facility] [address] [address] [address] Norah Campbell Ketones Ql (U) Negative Normal NEGATIVE [facility] Comment on above: Performed By: #### P REGU, ERUR, UMICRO #### [facility] [address] [address] [address] Norah Campbell LEUKOCYTES Negative Normal NEGATIVE [facility] Comment on above: Performed By: #### P REGU, ERUR, UMICRO #### [facility] [address] [address] [address] Norah Campbell Nitrite Ql (U) Negative Normal NEGATIVE [facility] Comment on above: Performed By: #### P REGU, ERUR, UMICRO #### [facility] [address] [address] [address] Norah Campbell pH (U) 6.0 [pH] Normal 5-9 [facility] Comment on above: Performed By: #### P REGU, ERUR, UMICRO #### [facility] [address] [address] [address] Norah Campbell SPEC GRAVITY 1.020 Normal 1.005-<=1.025 [facility] Comment on above: Performed By: #### P REGU, ERUR, UMICRO #### [facility] [address] [place] [address] Dr. Norah Campbell UA PROTEIN TRACE Normal NEGATIVE/ TRACE [facility] Comment on above: Performed By: #### P REGU, ERUR, UMICRO #### [facility] [address] [place] [address] Dr. Norah Campbell UR MICRO IND INDICATED Normal [facility] Comment on above: Performed By: #### P REGU, ERUR, UMICRO #### [facility] [address] [place] [address] Dr. Norah Campbell Urobilinogen Qn (U) 0.2 {Litzy'U}/dL Normal 0.2 - 1.0 [facility] Comment on above: Performed By: #### P REGU, ERUR, UMICRO #### [facility] [address] [place] [address] Dr. Norah Campbell LACTATE/LACTIC ACIDon 2021 Lactate [Moles/Vol] 1.7 mmol/L Normal 0.4-1.9 [facility] Comment on above: Performed By: #### L ACT #### [facility] [address] [place] [address] Dr. Norah Campbell LIPASEon 10-23-2021 Lipase [Catalytic activity/Vol] 142.0 U/L Normal 73.0-393.0 [facility] Comment on above: Performed By: #### L IPA, CMP ####[facility] [address] [id number]. Norah Campbell URon 10-23-2021 , QUAL Negative Normal NEGATIVE [facility] Comment on above: Performed By: #### P BARBI ALMENDAREZ UMICRO #### [facility] [address] [place], [place] [address] Dr. Norah Campbell PROF 14(COMP METB)on 022 Albumin [Mass/Vol] 4.1 g/dL Normal 3.4-5.0 [facility] Comment on above: Performed By: #### L IPA, CMP ####[facility] [address] [id number]. Norah Campbell Albumin/Globulin [Mass ratio] 1.2 {ratio} Normal [facility] Comment on above: Performed By: #### L IPA, CMP ####[facility] [address] [address]Dr. Norah Campbell ALP [Catalytic activity/Vol] 86 U/L Normal 46-116 [facility] Comment on above: Performed By: #### L IPA, CMP ####[facility] [address] [id number]. Norah Campbell ALT [Catalytic activity/Vol] 80 U/L Critically high 14-59 [facility] Comment on above: Performed By: #### L IPA, CMP ####[facility] [address] [id number]. Norah Campbell Anion gap [Moles/Vol] 12.2 mmol/L Normal [facility] Comment on above: Performed By: #### L IPA, CMP ####[facility] [address] [id number]. Norah Campbell AST [Catalytic activity/Vol] 74 U/L Critically high 15-37 [facility] Comment on above: Performed By: #### L IPA, CMP ####[facility] [address] [address]Dr. Norah Campbell Bilirubin [Mass/Vol] 0.4 mg/dL Normal 0.2-1.0 [facility] Comment on above: Performed By: #### L IPA, CMP ####[facility] [address] [address]Dr. Norah Campbell Calcium [Mass/Vol] 9.3 mg/dL Normal 8.5-10.1 [facility] Comment on above: Performed By: #### L IPA, CMP ####[facility] [address] [address]Dr. Norah Campbell Chloride [Moles/Vol] 106 mmol/L Normal 98-107 [facility] Comment on above: Performed By: #### L IPA, CMP ####[facility] [address] [place], [place] [address]Dr. Norah Campbell CO2 [Moles/Vol] 26.7 mmol/L Normal 21.0-32.0 [facility] Comment on above: Performed By: #### L IPA, CMP ####[facility] [address] [place], [place] [address]Dr. Norah Campbell Creatinine [Mass/Vol] 1.36 mg/dL Critically high 0.55-1.02 [facility] Comment on above: Performed By: #### L IPA, CMP ####[facility] [address] [place], [place] [address]Dr. Norah Campbell EGFR-AF SWISS 51 mL/min/1.73m2 Critically low >=60 [facility] Comment on above: Performed By: #### L IPA, CMP ####[facility] [address] [place], [place] [address]Dr. Norah Campbell EGFR-NON AF SWISS 42 mL/min/1.73m2 Critically low >=60 [facility] Comment on above: Performed By: #### L IPA, CMP ####[facility] [address] [place], [place] [address]Dr. Norah Campbell Globulin (S) [Mass/Vol] 3.4 g/dL Normal [facility] Comment on above: Performed By: #### L IPA, CMP ####[facility] [address] [place], [place] [address]Dr. Norah Campbell Glucose [Mass/Vol] 132 mg/dL Critically high 74-106 [facility] Comment on above: Performed By: #### L IPA, CMP ####[facility] [address] [address]Dr. Norah Campbell Potassium [Moles/Vol] 4.9 mmol/L Normal 3.5-5.1 [facility] Comment on above: Performed By: #### L IPA, CMP ####[facility] [address] [place], [place] [address]Dr. Merapatria Campbell Protein [Mass/Vol] 7.5 g/dL Normal 6.4-8.2 [facility] Comment on above: Performed By: #### L IPA, CMP ####[facility] [address] [place], [place] [address]Dr. Merapatria Campbell Sodium [Moles/Vol] 140 mmol/L Normal 136-145 [facility] Comment on above: Performed By: #### L IPA, CMP ####[facility] [address] [place], [place] [address]Dr. Merapatria Campbell Urea nitrogen [Mass/Vol] 28.0 mg/dL Critically high 7.0-18.0 [facility] Comment on above: Performed By: #### L IPA, CMP ####[facility] [address] [place], [place] [address]Dr. Merapatria Adrian Urea nitrogen/Creatinin e [Mass ratio] 20.6 mg/mg Normal [facility] Comment on above: Performed By: #### L IPA, CMP ####[facility] [address] [place], [place] [address]Dr. Merapatria Adrian URINE MICROSCOPIC ONLYon BACTERIA TRACE Abnormal NONE SEEN [facility] Comment on above: Performed By: #### P BARBI ALMENDAREZ UMICRO ####[facility] [address] [place], [place] [address]Dr. Norah Campbell Bacteria identified Cx Nom (U) INDICATED Normal [facility] Comment on above: Performed By: #### P BARBI ALMENDAREZ UMICRO ####[facility] [address] [place], [place] [address]Dr. Norah Campbell CAST NONE SEEN Normal NONE SEEN [facility] Comment on above: Performed By: #### P REGPJ JacobR UMICRO ####[facility] [address] [address]Dr. Norah Campbell Crystals LM Nom (Urine sed) NONE SEEN Normal NONE SEEN [facility] Comment on above: Performed By: #### P REGU ERUR, UMICRO ####[facility] [address] [address]Dr. Norah Campbell Epithelial cells LM Ql (Urine sed) MODERATE Abnormal NONE SEEN /RARE [facility] Comment on above: Performed By: #### P REGPJ JacobR UMICRO ####[facility] [address] [address]Dr. Norah Campbell MUCOUS NONE SEEN Normal NONE SEEN [facility] Comment on above: Performed By: #### P REGPJ JacobR UMICRO ####[facility] [address] [address]Dr. Norah Campbell RBC 0-2 Normal 0-2 [facility] Comment on above: Performed By: #### P PJ ALMENDAREZR UMICRO ####[facility] [address] [address]Dr. Norah Campbell WBC 2-5 Abnormal NONE SEEN [facility] Comment on above: Performed By: #### P REGPJ JacobR UMICRO ####[facility] [address] [address]Dr. Norah Campbell Covid-19 PCR (CVDTB)on 09-27 SARS-CoV-2 (COVID-19) RNA DAVID+probe Ql (Unsp spec) Not detected Normal NOT DETECTED [facility] Comment on above: Result Comment: This test is not yet approved or cleared by the [place] FDA. When there are no FDA-approved or cleared tests available, and other criteria are met, FDA can make tests available under an emergency access mechanism called an Emergency Use Authorization (EUA). The EUA for this test is supported by the [place] of Health and Human Service's (HHS's) declaration that circumstances exist to justify the emergency use of in vitro diagnostics for the detection and/or diagnosis of the virus that causes COVID-19. This EUA will remain in effect (meaning this test can be used) for the duration of the COVID-19 declaration justifying emergency of IVDs, unless it is terminated or revoked by FDA (after which the test may no longer be used). When diagnostic testing is negative, the possibility of a false negative should be considered in the context of a patient's recent exposures and the presence of clinical signs and symptoms consistent with SARS-CoV-2. Performed By: #### [facility] #### [facility] [address] [place] [address] ABD/PELVIS WO CONon 10-17 CT ABD/PELVIS WO CON CT ABDOMEN AND PELVIS WITHOUT CONTRAST HISTORY: Abdominal pain. Renal stone. COMPARISON: CT 10/19/2020. METHOD: Dose reduction techniques were achieved by using automated exposure control and/or adjustment of mA and/or kV according to patient size and/or use of iterative reconstruction technique. FINDINGS: The lung bases are clear. The evaluation of solid organs is limited with no IV contrast. The evaluation for lymphadenopathy is very limited with no IV contrast. There is no intrahepatic biliary ductal dilatation. The spleen is normal in size. The adrenal glands are normal appearing. There is a right renal 4 mm stone. There is a left renal pelvis 8 mm stone. There is an asymmetric smaller left kidney with mild left renal hydronephrosis with an obstructing cluster of left UPJ stones the largest measuring 6 mm. There are no bladder stones. There is no bowel thickening or obstruction. The appendix is normal appearing. There is no free fluid. There is no free air. There are no acute bony abnormalities. IMPRESSION: Asymmetrically small left kidney with mild left renal hydronephrosis with an obstructing cluster of left UPJ stones the largest measuring 6 mm. Recommend urology consult. Right renal 4 mm stone; no right renal hydronephrosis. Normal appendix. Electronically authenticated by: TAMMIE BURCH Date: 2021-10-17 20:[address] [facility] US KIDNEYSon 10-12-2021 US KIDNEYS EXAMINATION: US KIDNEYS HISTORY: Kidney stone ; bilateral flank pain, right greater than left for 2 months, hematuria COMPARISON: Ultrasound kidneys 04/14/2021 TECHNIQUE: Ultrasound examination was performed of the kidneys and urinary bladder. FINDINGS: RIGHT KIDNEY: Contains several nonobstructing stones, largest is 10 mm. Kidney: 10.0 x 4.3 x 4.1 cm LEFT KIDNEY: Contains several nonobstructing stones, largest is 15 x 8 mm. Renal pelvis is dilated and remains dilated after voiding; new since prior study suggesting mild hydronephrosis. Kidney: 7.8 x 3.5 x 4.3 cm BLADDER: No visible wall thickening, mass, or calculi. Post void residual: None. URETERAL JETS: Not evaluated. IMPRESSION: 1. Bilateral nephrolithiasis. 2. Minimally dilated left renal pelvis; partially obstructed ureter versus secondary to a full bladder at time of imaging. Consider CT imaging of the abdomen and pelvis to evaluate for a ureteral stone if clinically indicated. Electronically authenticated by: ARAMIS GARCIA Date: 2021-10-12 06:59 Normal [facility] XR KUB 1 VIEWon 10-12-2021 XR KUB 1 VIEW EXAMINATION: XR KUB 1 VIEW HISTORY: Abdominal pain ; follow-up bilateral kidney stones COMPARISON: XR KUB 07/29/2020 FINDINGS: KIDNEY/URETER - RIGHT: No visible renal or ureteral calcifications. KIDNEY/URETER - LEFT: No visible renal or ureteral calcifications. PELVIS: No visible ureteral stones. Stable pelvic calcifications compatible with phleboliths. BOWEL: No abnormal dilation or deviation. BONES: No acute abnormality. OTHER: Negative. No abnormal gaseous collections. IMPRESSION: 1. No appreciable urinary tract calculi. Electronically authenticated by: ARAMIS GARCIA Date: 2021-10-12 13:11 Normal [facility] US BX BRST RT ADD LESIONon 0 07-11-2021 US BX BRST RT ADD LESION Begin Addendum #1 COLLECTED DATE/TIME: 07/01/2021, 08:36 EDT Final Diagnosis Report for [facility] [place] [place], [place] (A) RIGHT BREAST 6 O'CLOCK MASS, BIOPSY: - FIBROEPITHELIAL LESION, FAVOR FIBROADENOMA. (B) RIGHT BREAST 11 O'CLOCK MASS, BIOPSY: - UNREMARKABLE LYMPHOID TISSUE WITH FAT REPLACEMENT, CONSISTENT WITH LYMPH NODE, SEE NOTE. NOTE: Immunostain for cytokeratin, AE1/AE3 is negative for carcinoma. Clinical correlation is suggested. 07/07/[address] Castillo. 07/08/2021 Verified with Yanira that report was present in office. Original Report EXAMINATION: US VAC ASST BX BREAST RT W CLIP, US BX BRST RT ADD LESION HISTORY: Mammographic breast mass COMPARISON: No relevant comparison available. TECHNIQUE: After obtaining informed consent, ultrasound-guided fine needle aspiration was performed in the usual sterile manner. RIGHT BREAST 6:00 LESION FINDINGS: IMAGING: Ultrasound. BIOPSY NEEDLE: 13-gauge Elite vacuum assisted core LOCATION: 1 cm 6:00 hypoechogenic mass SPECIMEN TYPE: 6 core samples. LOCAL ANESTHETIC: 3 mL 1% buffered lidocaine without epinephrine superficial, 6 mL 1% buffered lidocaine the. COMPLICATIONS: None. OTHER: Negative. PATHOLOGY: Pending. An addendum will be added when results are available. RIGHT AXILLA 11:00 LESION FINDINGS: IMAGING: Ultrasound. BIOPSY NEEDLE: 13-gauge Elite vacuum assisted core LOCATION: 1 cm 11:00 hyperechogenic mass SPECIMEN TYPE: 2 core samples. LOCAL ANESTHETIC: 3 mL 1% buffered lidocaine without epinephrine superficial, 8 mL 1% buffered lidocaine the. COMPLICATIONS: None. OTHER: Negative. PATHOLOGY: Pending. An addendum will be added when results are available. IMPRESSION: 1. Uneventful ultrasound guided vacuum assisted core biopsy of 2 separate right breast lesions 2. Pathology results are pending. Normal [facility] MAMMO POST BIOPSY RIGHTon MAMMO POST BIOPSY RIGHT Patient: MIRIAM BRYAN Exam Date: 07/01/2021 : 1975 Gender:F Ordering : DR KEVIN CASTILLO . Admission #: [id number] Family : Order #: [id number] CLICK HERE TO VIEW EXAM RADIOLOGY REPORT PROCEDURE: MAMMOGRAM POST BIOPSY IMAGES COMPARISON: MG MAMM SCREEN 3D MARÍA CAD, 06/14/2021. INDICATIONS: Mammographic breast mass BREAST COMPOSITION: FINDINGS: BIOPSY MARKER: Metallic spring marker 6 o'clock mid breast with change in the targeted lesion consistent with interval sampling. Metallic butterfly marker in the axillary tail with change in targeted lesion consistent with interval sampling BREAST FINDINGS: Expected postprocedural changes with stranding and subcutaneous emphysema Dictated by: Stefan Maria MD on 07/01/2021 at 09:02 Approved by: Stefan Maria MD on 07/01/2021 at 09:[address] [facility] US BREAST RIGHT LIMITEDon US BREAST RIGHT LIMITED Patient: MIRIAM BRYAN. Exam Date: 06/22/2021 : 1975 Gender:F Ordering : DR KEVIN CASTILLO . Admission #: [id number] Family : Order #: [id number] CLICK HERE TO VIEW EXAM RADIOLOGY REPORT PROCEDURE: ULTRASOUND BREAST RIGHT LIMITED COMPARISON: MG MAMM SCREEN 3D MARÍA CAD, 06/14/2021. INDICATIONS: Breast lump TECHNIQUE: Breast ultrasound was performed, with evaluation focusing only on specific areas of concern. FINDINGS: DIAGNOSTIC CATEGORY 4--SUSPICIOUS FOR MALIGNANCY. FINDING DOES NOT EXHIBIT CLASSIC FINDINGS OF BREAST CANCER: RIGHT BREAST: 11 x 11 x 6 mm partially circumscribed heterogeneous mass at the 6 o'clock position 4.7 cm from the nipple. Ultrasound guided biopsy is recommended. At the 11 o'clock position there is a string of several poorly defined nodules with hyperechoic outer margins measuring up to 8 mm in diameter. Ultrasound-guided biopsy of 1 of the larger nodules is recommended. Findings, recommendations, and alternatives were discussed with the patient. Our radiology department nurse is currently working with the patient to schedule biopsies. RECOMMENDATIONS: ULTRASOUND-GUIDED CORE BIOPSY: RIGHT BREAST PLEASE NOTE: A NORMAL ULTRASOUND EXAMINATION DOES NOT EXCLUDE THE POSSIBILITY OF BREAST CANCER. A CLINICALLY SUSPICIOUS PALPABLE LUMP SHOULD BE BIOPSIED. Dictated by: Aramis Garcia M.D. on 06/22/2021 at 09:05 Approved by: Aramis Garcia M.D. on 06/22/2021 at 09:[address] [facility] MG MAMM SCREEN 3D MARÍA CADon 06-14-2021 MG MAMM SCREEN 3D MARÍA CAD Patient: MIRIAM BRYAN. Exam Date: 06/14/2021 : 1975 Gender:F Ordering : DR KEVIN CASTILLO . Admission #: [id number] Family : Order #: [id number] CLICK HERE TO VIEW EXAM RADIOLOGY REPORT PROCEDURE: MAMMOGRAM SCREENING 3D BILATERAL CAD COMPARISON: None. INDICATIONS: Screening mammography Calculator Name NCI Breast Cancer Risk Assessment Tool 5 Year Breast Cancer Risk 1.70% Lifetime Breast Cancer Risk 18.40% Personal Breast Cancer No Personal Ovarian Cancer No Treatments None Family Cancers Mother with breast cancer at age 58; Aunt-maternal with breast cancer at age 50; Aunt-maternal with breast cancer at age 48; Grandmother-maternal with breast cancer at age 65; Mother with ovarian cancer at age 45; Mother with bladder cancer at age 50; Father with prostate cancer at age 55. LOCATION: [facility] BREAST COMPOSITION: Scattered areas fibroglandular density. FINDINGS: DIAGNOSTIC CATEGORY 0--INCOMPLETE: NEED ADDITIONAL IMAGING EVALUATION. RIGHT BREAST: 1.2 cm partially circumscribed mass within the lower-inner quadrant, mid breast. Collection of small nodules within the anterior upper-outer quadrant, largest is 7 millimeters. Ultrasound evaluation of both areas within the right breast is recommended. LEFT BREAST: No significant suspicious finding. RECOMMENDATIONS: ULTRASOUND: RIGHT BREAST PLEASE NOTE: A NORMAL MAMMOGRAM DOES NOT EXCLUDE THE POSSIBILITY OF BREAST CANCER. A CLINICALLY SUSPICIOUS PALPABLE LUMP SHOULD BE BIOPSIED. Dictated by: Aramis Garcia M.D. on 06/14/2021 at 13:47 Approved by: Aramis Garcia M.D. on 06/14/2021 at 13:[address] [facility] US SOFI DOP LEG RTon 06-07-19 22 US SOFI DOP LEG RT EXAM: US SOFI DOP LEG RT HISTORY: Right knee pain, fall yesterday. COMPARISON: 06/24/2019 PROCEDURE: High resolution duplex sonography of the right lower extremity was performed using B-mode, color-flow, and spectral analysis. FINDINGS: The visualized deep veins of the right lower extremity are compressible. Venous segments show normal waveforms. Color doppler patency preserved. No abnormal intraluminal echogenicity to suggest thrombus. 3.7 x 0.9 x 2.4 cm fluid collection in the medial knee probably representing a popliteal cyst. Cine clips were provided of the lateral knee in the region of pain, with apparent right knee joint fluid probably within the lateral aspect of the suprapatellar bursa seen. IMPRESSION: 1. No evidence of deep venous thrombosis. 2. Probable small right knee joint effusion and small popliteal cyst. Electronically authenticated by: SAADIA SUNSHINE Date: 2021-06-06 19:[address] [facility] XR KNEE RT 4V or >on 022 XR KNEE RT 4V or > EXAM: XR KNEE RT 4V or > HISTORY: Acute right medial knee Pain COMPARISON: 02/26/2019 TECHNIQUE: 4 views were obtained of the right knee. FINDINGS: An acute fracture is not identified. Mild downsloping of the medial tibial plateau is unchanged. Small medial and patellofemoral surface articulating surface osteophytes are new. A joint effusion is not identified. A foreign body is not identified. No significant soft tissue swelling is identified. IMPRESSION: 1. Mild/early medial and patellofemoral compartment right knee arthritis, new. 2. An acute abnormality is not identified. Electronically authenticated by: MICHELLE SMITH Date: 2021-06-06 17:[address] [facility] KULWINDER SUBTYPING (8)on 05-17-19 22 ANTI CENTROMERE B <0.4 Normal (0.0 - 10.0) [facility] Comment on above: Order Comment: ORIGI [facility] ACCN = [id number] FACILITY: [facility] [id number] Result Comment: PERF ORMED ON PHADIA EFFECTIVE 04-25-2021 Performed By: #### E NA6 #### [facility] [address] [facility], [address] ANTI ds DNA 3.0 IU/ML Normal (0.0 - 15.0) [facility] Comment on above: Order Comment: ORIGI NAL ACCN = [id number] FACILITY: [facility] [id number] Performed By: #### E NA6 #### [facility] [address] [facility], [address] ANTI DORIS-1 <0.3 Normal (0.0 - 10.0) [facility] Comment on above: Order Comment: ORIGI NAL ACCN = [id number] FACILITY: [facility] [id number] Performed By: #### E NA6 #### [facility] [address] [facility], [address] ANTI PLATFORM ARCHITECT (U1RNP) 0.8 U/mL Normal (0.0 - 10.0) [facility] Comment on above: Order Comment: ORIGI NAL ACCN = [id number] FACILITY: [facility] [id number] Performed By: #### E NA6 #### [facility] [address] [place] [place], [address] ANTI SCL 70 <0.6 Normal (0.0 - 10.0) [facility] Comment on above: Order Comment: [facility] ACCN = [id number] FACILITY: [facility] [id number] Performed By: #### E NA6 #### [facility] [address] [place], [address] ANTI CRANE <0.7 Normal (0.0 - 10.0) [facility] Comment on above: Order Comment: [facility] ACCN = [id number] FACILITY: [facility] [id number] Performed By: #### E NA6 #### [facility] [address] [facility], [address] ANTI SSA/RO <0.4 Normal (0.0 - 10.0) [facility] Comment on above: Order Comment: [facility] ACCN = [id number] FACILITY: [facility] [id number] Performed By: #### E NA6 #### [facility] [address] [facility], [address] ANTI SSB/LA <0.4 Normal (0.0 - 10.0) [facility] Comment on above: Order Comment: [facility] ACCN = [id number] FACILITY: [facility] [id number] Performed By: #### E NA6 #### [facility] [address] [facility], [address] KULWINDER - TITERon 05-07-2021 KULWINDER by HEp-2 CELLS Negative Normal (NEG - NEG) [facility] Comment on above: Performed By: #### V D25, *KULWINDER, ESRCRP, C3-C4, TSHT34, UA, CHEM-C, CBC/D #### [facility] [address] [facility], [address] KULWINDER TITER 1:40 Normal (<1:40 - 1:40) [facility] Comment on above: Performed By: #### V D25, *KULWINDER, ESRCRP, C3-C4, TSHT34, UA, CHEM-C, CBC/D #### [facility] [address] [facility], [address] C3 AND C4on 05-07-2021 C 3 180 MG/DL High (88 - 165) [facility] Comment on above: Performed By: #### V D25, *KULWINDER, ESRCRP, C3-C4, TSHT34, UA, CHEM-C, CBC/D #### [facility] [address] [facility], [address] C 4 44 MG/DL Normal (14 - 44) [facility] Comment on above: Performed By: #### V D25, *KULWINDER, ESRCRP, C3-C4, TSHT34, UA, CHEM-C, CBC/D #### [facility] [address] [facility], [address] CBC WITH DIFFon 05-07-2021 ABS BASOPHIL 0.04 x10^3ul Normal (0.00 - 0.16) [facility] Comment on above: Order Comment: FACIL ITY: [facility] [id number] Performed By: #### V D25, *KULWINDER, ESRCRP, C3-C4, TSHT34, UA, CHEM-C, CBC/D #### [facility] [address] [facility], [address] ABS EOSINOPHIL 0.28 x10^3ul Normal (0.00 - 0.40) [facility] Comment on above: Order Comment: FACIL ITY: [facility] [id number] [id number] Performed By: #### V D25, *KULWINDER, ESRCRP, C3-C4, TSHT34, UA, CHEM-C, CBC/D #### [facility] [address] [facility], [phone] (101) ABS IMMATURE GRANS 0.02 x10^3ul Normal (0.00 - 0.11) [facility] Comment on above: Order Comment: FACIL ITY: [facility] PERFORMED ON ADDITIONAL [facility] [id number] Performed By: #### V D25, *KULWINDER, ESRCRP, C3-C4, TSHT34, UA, CHEM-C, CBC/D #### [facility] [address] [facility], [id number] ABS LYMPHOCYTE 2.40 x10^3ul Normal (0.96 - 5.40) [facility] Comment on above: Order Comment: FACIL ITY: [facility] PERFORMED ON ADDITIONAL [facility] [id number] Performed By: #### V D25, *KULWINDER, ESRCRP, C3-C4, TSHT34, UA, CHEM-C, CBC/D #### [facility] [address] [facility], [address] ABS MONOCYTE 0.59 x10^3ul Normal (0.10 - 1.00) [facility] Comment on above: Order Comment: FACIL ITY: [facility] PERFORMED ON ADDITIONAL [facility] [id number] Performed By: #### V D25, *KULWINDER, ESRCRP, C3-C4, TSHT34, UA, CHEM-C, CBC/D #### [facility] [address] [facility], [address] ABS NEUTROPHIL 4.10 x10^3ul Normal (1.50 - 7.00) [facility] Comment on above: Order Comment: FACIL ITY: [facility] PERFORMED ON ADDITIONAL [facility] [id number] [phone] Performed By: #### V D25, *KULWINDER, ESRCRP, C3-C4, TSHT34, UA, CHEM-C, CBC/D #### [facility] [address] [facility], [phone] (297 Basophils/100 WBC (Bld) 0.5 % Normal () [facility] Comment on above: Order Comment: FACIL ITY: [facility] PERFORMED ON ADDITIONAL ACCN [id number] Performed By: #### V D25, *KULWINDER, ESRCRP, C3-C4, TSHT34, UA, CHEM-C, CBC/D #### [facility] [address] [facility], [address] Eosinophils/100 WBC (Bld) 3.8 % Normal () [facility] Comment on above: Order Comment: FACIL ITY: [facility] PERFORMED ON ADDITIONAL ACCN [id number] Performed By: #### V D25, *KULWINDER, ESRCRP, C3-C4, TSHT34, UA, CHEM-C, CBC/D #### [facility] [address] [facility], [address] Hematocrit (Bld) [Volume fraction] 41.1 % Normal (37.0 - 47.0) [facility] Comment on above: Order Comment: FACIL ITY: [facility] [id number] Performed By: #### V D25, *KULWINDER, ESRCRP, C3-C4, TSHT34, UA, CHEM-C, CBC/D #### [facility] [address] [facility], [address] Hemoglobin (Bld) [Mass/Vol] 12.9 g/dL Normal (12.0 - 16.0) [facility] Comment on above: Order Comment: FACIL ITY: [facility] PERFORMED ON ADDITIONAL ACCN [id number] Performed By: #### V D25, *KULWINDER, ESRCRP, C3-C4, TSHT34, UA, CHEM-C, CBC/D #### [facility] [address] [facility], [address] IMMATURE GRANS (IG) 0.3 % Normal () [facility] Comment on above: Order Comment: FACIL ITY: [facility] PERFORMED ON ADDITIONAL ACCN [id number] Performed By: #### V D25, *KULWINDER, ESRCRP, C3-C4, TSHT34, UA, CHEM-C, CBC/D #### [facility] [address] [facility], [phone] LYMPS 32.3 % Normal () [facility] Comment on above: Order Comment: FACIL ITY: [facility] PERFORMED ON ADDITIONAL [facility] [id number] [phone] Performed By: #### V D25, *KULWINDER, ESRCRP, C3-C4, TSHT34, UA, CHEM-C, CBC/D #### [facility] [address] [facility], [phone] MCH (RBC) [Entitic mass] 29.5 pg Normal (27.0 - 33.0) [facility] Comment on above: Order Comment: FACIL ITY: [facility] PERFORMED ON ADDITIONAL [facility] [id number] [id number] Performed By: #### V D25, *KULWINDER, ESRCRP, C3-C4, TSHT34, UA, CHEM-C, CBC/D #### [facility] [address] [facility], [phone] MCHC (RBC) [Mass/Vol] 31.4 g/dL Normal (30.0 - 37.0) [facility] Comment on above: Order Comment: FACIL ITY: [facility] PERFORMED ON ADDITIONAL [facility] [id number] [phone] Performed By: #### V D25, *KULWINDER, ESRCRP, C3-C4, TSHT34, UA, CHEM-C, CBC/D #### [facility] [address] [facility], [phone] MCV (RBC) [Entitic vol] 93.8 fL Normal (81.0 - 99.0) [facility] Comment on above: Order Comment: FACIL ITY: [facility] PERFORMED ON ADDITIONAL [facility] [id number] [id number] Performed By: #### V D25, *KULWINDER, ESRCRP, C3-C4, TSHT34, UA, CHEM-C, CBC/D #### [facility] [address] [facility], [address] MONOS 7.9 % Normal () [facility] Comment on above: Order Comment: FACIL ITY: [facility] PERFORMED ON ADDITIONAL [facility] [id number] [id number] Performed By: #### V D25, *KULWINDER, ESRCRP, C3-C4, TSHT34, UA, CHEM-C, CBC/D #### [facility] [address] [facility], [address] PLT 510 x10^3ul High (130 - 400) [facility] Comment on above: Order Comment: FACIL ITY: [facility] PERFORMED ON ADDITIONAL [facility] [id number] [phone] Performed By: #### V D25, *KULWINDER, ESRCRP, C3-C4, TSHT34, UA, CHEM-C, CBC/D #### [facility] [address] [facility], [address] RBC 4.38 x10^6ul Normal (4.20 - 5.40) [facility] Comment on above: Order Comment: FACIL ITY: [facility] PERFORMED ON ADDITIONAL [facility] [id number] [id number] Performed By: #### V D25, *KULWINDER, ESRCRP, C3-C4, TSHT34, UA, CHEM-C, CBC/D #### [facility] [address] [facility], [address] RDW-SD 52.0 fl High (37.0 - 49.0) [facility] Comment on above: Order Comment: FACIL ITY: [facility] PERFORMED ON ADDITIONAL [facility] [id number] [phone] Performed By: #### V D25, *KULWINDER, ESRCRP, C3-C4, TSHT34, UA, CHEM-C, CBC/D #### [facility] [address] [facility], [address] SEGS 55.2 % Normal () [facility] Comment on above: Order Comment: FACIL ITY: [facility] PERFORMED ON ADDITIONAL ACCN [id number] Performed By: #### V D25, *KULWINDER, ESRCRP, C3-C4, TSHT34, UA, CHEM-C, CBC/D #### [facility] [address] [facility], [address] WBC 7.43 x10^3ul Normal (3.80 - 10.60) [facility] Comment on above: Order Comment: FACIL ITY: [facility] PERFORMED ON ADDITIONAL ACCN [id number] Performed By: #### V D25, *KULWINDER, ESRCRP, C3-C4, TSHT34, UA, CHEM-C, CBC/D #### [facility] [address] [facility], [address] COMP METABOLIC PANEL W/GFRon 05-07-2021 Albumin [Mass/Vol] 4.7 g/dL Normal (3.5 - 5.0) [facility] Comment on above: Performed By: #### V D25, *KULWINDER, ESRCRP, C3-C4, TSHT34, UA, CHEM-C, CBC/D #### [facility] [address] [facility], [address] ALK PHOS 127 U/L High (38 - 126) [facility] Comment on above: Performed By: #### V D25, *KULWINDER, ESRCRP, C3-C4, TSHT34, UA, CHEM-C, CBC/D #### [facility] [address] [facility], [address] ALT [Catalytic activity/Vol] 55 U/L High (1 - 35) [facility] Comment on above: Performed By: #### V D25, *KULWINDER, ESRCRP, C3-C4, TSHT34, UA, CHEM-C, CBC/D #### [facility] [address] [facility], [address] AST [Catalytic activity/Vol] 45 U/L Normal (15 - 46) [facility] Comment on above: Performed By: #### V D25, *KULWINDER, ESRCRP, C3-C4, TSHT34, UA, CHEM-C, CBC/D #### [facility] [address] [place] [place], [address] Bilirubin [Mass/Vol] 0.5 mg/dL Normal (0.2 - 1.3) [facility] on above: Performed By: #### V D25, *KULWINDER, ESRCRP, C3-C4, TSHT34, UA, CHEM-C, CBC/D #### [facility] [address] [place] [place], [address] Calcium [Mass/Vol] 9.9 mg/dL Normal (8.6 - 10.6) [facility] Comment on above: Performed By: #### Mariely D25, *KULWINDER, ESRCRP, C3-C4, TSHT34, UA, CHEM-C, CBC/D #### [facility] [address] [place] [place], [address] Chloride [Moles/Vol] 105 mmol/L Normal (98 - 107) [facility] Comment on above: Performed By: #### V D25, *KULWINDER, ESRCRP, C3-C4, TSHT34, UA, CHEM-C, CBC/D #### [facility] [address] [place] [address] [place], [address] CO2 [Moles/Vol] 28 mmol/L Normal (22 - 30) [facility] Comment on above: Performed By: #### V D25, *KULWINDER, ESRCRP, C3-C4, TSHT34, UA, CHEM-C, CBC/D #### [facility] [address] [place] [place], [address] Creatinine [Mass/Vol] 0.95 mg/dL Normal (0.52 - 1.04) [facility] on above: Performed By: #### V D25, *KULWINDER, ESRCRP, C3-C4, TSHT34, UA, CHEM-C, CBC/D #### [facility] [address] [facility], [address] GFR- AMER 76.6 ML/M1.7 Normal (60.0 - 140.1) [facility] Comment on above: Performed By: #### V D25, *KULWINDER, ESRCRP, C3-C4, TSHT34, UA, CHEM-C, CBC/D #### [facility] [address] [facility], [address] GFR-NON AFRIC-AMER 63.3 ML/M1.7 Normal (60.0 - 115.8) [facility] Comment on above: Performed By: #### V D25, *KULWINDER, ESRCRP, C3-C4, TSHT34, UA, CHEM-C, CBC/D #### [facility] [address] [facility], [address] Glucose [Mass/Vol] 98 mg/dL Normal (74 - 106) [facility] Comment on above: Performed By: #### V D25, *KULWINDER, ESRCRP, C3-C4, TSHT34, UA, CHEM-C, CBC/D #### [facility] [address] [facility], [address] Potassium [Moles/Vol] 4.7 mmol/L Normal (3.5 - 5.1) [facility] Comment on above: Performed By: #### V D25, *KULWINDER, ESRCRP, C3-C4, TSHT34, UA, CHEM-C, CBC/D #### [facility] [address] [facility], [address] Protein [Mass/Vol] 7.3 g/dL Normal (6.3 - 8.2) [facility] Comment on above: Performed By: #### V D25, *KULWINDER, ESRCRP, C3-C4, TSHT34, UA, CHEM-C, CBC/D #### [facility] [address] [facility], [address] Sodium [Moles/Vol] 141 mmol/L Normal (137 - 145) [facility] above: Performed By: #### V D25, *KULWINDER, ESRCRP, C3-C4, TSHT34, UA, CHEM-C, CBC/D #### [facility] [address] [facility], [address] Urea nitrogen [Mass/Vol] 15 mg/dL Normal (7 - 17) [facility] Comment on above: Performed By: #### V D25, *KULWINDER, ESRCRP, C3-C4, TSHT34, UA, CHEM-C, CBC/D #### [facility] [address] [facility], [address] SED RATE - CRPon 05-07-2021 CRP EXTENDED RANGE 10.10 MG/L High (0.00 - 3.20) [facility] Comment on above: Performed By: #### V D25, *KULWINDER, ESRCRP, C3-C4, TSHT34, UA, CHEM-C, CBC/D #### [facility] [address] [facility], [address] SED RATE WEST. 46 MM/HR High (0 - 25) [facility] Comment on above: Performed By: #### V D25, *KULWINDER, ESRCRP, C3-C4, TSHT34, UA, CHEM-C, CBC/D #### [facility] [address] [facility], [address] T3 FREE, T4 FREE AND TSHon 0 05-07-2021 Free T3 [Mass/Vol] 2.79 pg/mL Normal (2.71 - 6.16) [facility] Comment on above: Performed By: #### V D25, *KULWINDER, ESRCRP, C3-C4, TSHT34, UA, CHEM-C, CBC/D #### [facility] [address] [facility], [address] Free T4 [Mass/Vol] 0.98 ng/dL Normal (0.64 - 1.79) [facility] Comment on above: Performed By: #### V D25, *KULWINDER, ESRCRP, C3-C4, TSHT34, UA, CHEM-C, CBC/D #### [facility] [address] [facility], [address] TSH Qn 2.35 m[IU]/L Normal (0.470 - 4.680) [facility] Comment on above: Performed By: #### V D25, *KULWINDER, ESRCRP, C3-C4, TSHT34, UA, CHEM-C, CBC/D #### [facility] [address] [place], [place] [address] Rd. [facility], [address] URINALYSIS, COMPLETEon 05-07 ALBUMIN TRACE High (NONE - NEG) [facility] Comment on above: Performed By: #### V D25, *KULWINDER, ESRCRP, C3-C4, TSHT34, UA, CHEM-C, CBC/D #### [facility] [address] [place], [place] [address] Rd. [facility], [address] BACTERIA MOD High (NONE - OCC) [facility] Comment on above: Performed By: #### V D25, *KULWINDER, ESRCRP, C3-C4, TSHT34, UA, CHEM-C, CBC/D #### [facility] [address] [facility], [address] Bilirubin Ql (U) Negative Normal (NEG) [facility] Comment on above: Performed By: #### V D25, *KULWINDER, ESRCRP, C3-C4, TSHT34, UA, CHEM-C, CBC/D #### [facility] [address] [facility], [address] CHARACTER HAZY Normal (CLEAR - HAZY) [facility] Comment on above: Performed By: #### V D25, *KULWINDER, ESRCRP, C3-C4, TSHT34, UA, CHEM-C, CBC/D #### [facility] [address] [place], [address] Color (U) P YEL Normal (P YEL - L AMB) [facility] Comment on above: Performed By: #### V D25, *KULWINDER, ESRCRP, C3-C4, TSHT34, UA, CHEM-C, CBC/D #### [facility] [address] [place] [address] [place], [address] Glucose Ql (U) Negative Normal (NEG) [facility] Comment on above: Performed By: #### V D25, *KULWINDER, ESRCRP, C3-C4, TSHT34, UA, CHEM-C, CBC/D #### [facility] [address] [place] [place], [address] Ketones Ql (U) Negative Normal (NEG) [place] [facility] Comment on above: Performed By: #### V D25, *KULWINDER, ESRCRP, C3-C4, TSHT34, UA, CHEM-C, CBC/D #### [facility] [address] [place], [address] LEUK. ESTERASE MOD High (NEG) [place] [facility] Comment on above: Performed By: #### V D25, *KULWINDER, ESRCRP, C3-C4, TSHT34, UA, CHEM-C, CBC/D #### [facility] [address] [place], [address] Mucus Ql (Urine sed) OCC Normal (NONE - OCC) [place] [facility] Comment on above: Performed By: #### V D25, *KULWINDER, ESRCRP, C3-C4, TSHT34, UA, CHEM-C, CBC/D #### [place] [facility] [address] [place], [address] Nitrite Ql (U) Positive High (NEG) [place] [facility] Comment on above: Performed By: #### V D25, *KULWINDER, ESRCRP, C3-C4, TSHT34, UA, CHEM-C, CBC/D #### [facility] [address] [place], [address] OCCULT BLD. LARGE High (NEG) [place] [facility] Comment on above: Performed By: #### V D25, *KULWINDER, ESRCRP, C3-C4, TSHT34, UA, CHEM-C, CBC/D #### [facility] [address] [place], [address] pH (U) 8.0 [pH] Normal (5.0 - 9.0) [facility] on above: Performed By: #### V D25, *KULWINDER, ESRCRP, C3-C4, TSHT34, UA, CHEM-C, CBC/D #### [facility] [address] [place], [address] SP. GRAVITY 1.015 Normal (1.001 - 1.035) [place] Comment on above: Performed By: #### V D25, *KULWINDER, ESRCRP, C3-C4, TSHT34, UA, CHEM-C, CBC/D #### [facility] [address] [place], [address] SQUAMOUS EPI MOD High (NONE - OCC) [place] [facility] Comment on above: Performed By: #### V D25, *KULWINDER, ESRCRP, C3-C4, TSHT34, UA, CHEM-C, CBC/D #### [facility] [address] [place], [address] UR. RBC 3-5 High (0 - 2) [place] [facility] Comment on above: Performed By: #### V D25, *KULWINDER, ESRCRP, C3-C4, TSHT34, UA, CHEM-C, CBC/D #### [facility] [address] [place], [address] UR. WBC TNTC High (0 - 4) [facility] Comment on above: Performed By: #### V D25, *KULWINDER, ESRCRP, C3-C4, TSHT34, UA, CHEM-C, CBC/D #### [facility] [address] [facility], [id number] Urobilinogen (U) [Mass/Vol] 0.2 mg/dL Normal (0.2 - <2.0) [facility] Comment on above: Performed By: #### V D25, *KULWINDER, ESRCRP, C3-C4, TSHT34, UA, CHEM-C, CBC/D #### [facility] [address] [facility], [id number] VITAMIN D, 25 HYDROXYon 03- VITAMIN D, 25 31.0 NG/ML Normal (30.0 - 100.0) [facility] Comment on above: Result Comment: * * * VITAMIN D, 25 HYDROXY GENERAL GUIDELINE * * * DEFICIENCY = < OR = 20.0 NG/ML INSUFFICIENCY = 20.1 - 29.9 NG/ML SUFFICIENCY = 30.0 - 100.0 NG/ML TOXICITY = > 100.1 NG/ML Performed By: #### V D25, *KULWINDER, ESRCRP, C3-C4, TSHT34, UA, CHEM-C, CBC/D #### [facility] [address] [facility], [id number] XR ankle LT min 3V*on 2020 XR ankle LT min 3V* [facility] Main [address] [address] XRay Report Signed Patient: Miriam Bryan MR#: [id number] : 1975 Acct:[id number] Age/Sex: 45 / F ADM Date: 12/07/20 Loc: [facility] Room: Type: [facility] Attending Dr: Jimmy Ruiz DPM, MS Ordering Provider: Jimmy Ruiz DPM, MS Date of Service: 12/07/20 XR/XR ankle LT min 3V*: PAIN Copies to: Jimmy Sara,DPM, MS Left ankle 12/07/2020. CLINICAL DATA: Follow-up left ankle fracture. FINDINGS: 2 views of the left ankle were obtained and are compared with a prior study 12/02/2020. A cast is present. There is redemonstration of a displaced and angulated fracture of the lateral malleolus. Bony alignment appears stable. Additional note is made of widening of the joint space at the medial ankle mortise consistent with ligamentous injury. The previously visualized fracture of the posterior malleolus of the distal tibia is not well seen at this time. XR/XR ankle LT min 3V* IMPRESSION: Findings as described. Impression dictated by: Vick Phillips Jr., M.D.12/07/2020 7:36 PM Dictation Location: [place] [address] Transcribed By: [facility] 12/07/201935 Dictated By: Vick Phillips Jr, MD 12/07/201930 Signed By: 12/07/201935 [facility] Vital Signs Date Time Vital Sign Value Performing Clinician Tarshai rosa 10-20-2021 09:23-0400 Blood Pressure Location Myra Lue [facility] 10-20-2021 09:23-0400 Diastolic blood pressure 86 mm[Hg] Myra Lue [facility] 10-20-2021 09:23-0400 Heart rate 77 /min Myra Lue [facility] 10-20-2021 09:23-0400 Systolic blood pressure 132 mm[Hg] Myra Lue [facility] 08-03-2021 14:30-0400 Diastolic blood pressure 111 mm[Hg] IAN SANTOS [facility] 08-03-2021 14:30-0400 Heart rate 74 /min IAN SANTOS [facility] 08-03-2021 14:30-0400 Respiratory rate 16 /min IAN SANTOS [facility] 08-03-2021 14:30-0400 Systolic blood pressure 138 mm[Hg] IAN SANTOS [facility] Encounters Encounter Date Encounter Type Care Provider Facility Start: 03-05-2023 ambulatory MD Cory Story Facil ity:[facility] Start: 02-01-2023 ambulatory MD Cory Story Facility :[facility] Start: 01-30-2023 End: 01-31-2023 ambulatory MD Cory Story Facility:[facility] Start: 06-02-[address] KEVIN CASTILLO . Facil ity:[facility] Start: 03-24-2022 End: 03-24-[address] KEVIN CASTILLO . Facility:[facility] Start: 11-21-[address] KEVIN CASTILLO . Facil ity:[facility] Start: 11-02-2021 End: 11-02-[address] STEFAN MARIA Facility:[facility] Start: 10-27-2021 Encounter for preprocedural laboratory examination MYRA VILLALOBOS . [facility] Start: 10-26-2021 End: 10-27-2021 ambulatory MYRA VILLALOBOS . Facility:[facility] Start: 10-26-2021 End: 10-27-2021 Encounter for preprocedural laboratory examination MYRA VILLALOBOS . Facility:[facility] Start: 10-23-2021 End: 10-23-2021 ambulatory BOBO MOULTON . Facility:[facility] Start: 10-20-2021 End: 10-20-2021 Patient encounter procedure Myra Villalobos [facility] Start: 10-19-2021 End: 10-19-[address] KEVIN CASTILLO . Facility:[facility] Start: 10-17-2021 End: 10-18-[address] SILVIO Ball Facility:[facility] Start: 10-11-2021 End: 10-12-[address] DOCTOR GARCIA Facility:[facility] Start: 08-03-2021 End: 08-03-2021 Lab Drop off IAN SANTOS [facility] Start: 08-03-2021 End: 08-03-2021 Patient encounter procedure IAN SANTOS [facility] Start: 07-01-2021 End: 07-01-[address] KEVIN CASTILLO . Facility:[facility] Start: 06-22-2021 End: 06-23-[address] KEVIN CASTILLO . Facility:[facility] Start: 06-14-2021 End: 06-15-[address] KEVIN CASTILLO . Facility:[facility] Start: 06-07-[address] KEVIN CASTILLO . Facil ity:[facility] Start: 06-06-2021 End: 06-06-[address] KEVIN CASTILLO . Facility:[facility] Procedures Date Procedure Procedure Detail Performing Clinician Start: 02-26-2013 Extracorporeal shock wave lithotripsy of calculus of kidney IAN SANTOS Immunizations Immunization Date Immunization Notes Care Provider Julio hernandez 02-27-2020 SARS-CoV-2 mRNA (tozinameran 5y-11y) vaccine Myra Villalobos [facility] Comment on above: Result Comment: 2 va ccines Payers Date Payer Category Payer Unknown [id number] 1975 Unknown [id number] 2.16.84 [id number] 1975 Unknown [id number] 2.16.84 [id number] 1975 Unknown [id number] 2.16.84 [id number] 1975 Unknown [id number] 2.16.84 0.1.393081.3.579.2.593 1975 Unknown [id number] 2.16.84 0.1.051766.3.579.2.593 1975 Unknown [id number] 2.16.84 0.1.352863.3.579.2.593 1975 Unknown [id number] 2.16.84 0.1.072369.3.579.2.593 1975 Unknown [id number] 2.16.84 0.1.068009.3.579.2.593 1975 Unknown [id number] 2.16.84 0.1.526381.3.579.2.593 1975 Unknown [id number] 2.16.84 0.1.275730.3.579.2.593 1975 Unknown [id number] 2.16.84 0.1.294118.3.579.2.593 1975 Unknown [id number] 2.16.84 0.1.025084.3.579.2.593 1975 Unknown [id number] 2.16.84 0.1.801008.3.579.2.593 1975 Unknown [id number] 2.16.84 0.1.031733.3.579.2.593 1975 Unknown [id number] 2.16.84 0.1.978244.3.579.2.593 1975 Unknown [id number] 2.16.8 40.1.984839.3.579.2.727 1959 Self-pay [id number] 1959 Unknown [id number] Self-pay Other1 (STD) [id number] Unknown Other1 (STD) [id number] Social History Date Type Detail [facility] Start: 1975 Sex Assigned At Female F [facility] Start: 08-03-2021 Tobacco smoking status Never s moked tobacco (finding) [facility] Sex Assigned At Female [facility] Goals Date Patient Goal Desired Activity /State Functional Status Date Assessment Result Facility 10-20-2021 Functional Status N/A [facility] Clinical Note 01-30-2023 Note Date & Type Note Facility 01-30-2023 Note HPI Staff This visit was conducted via two-way, real-time interactive video communications by Cory Story MD from my office using [employer]. The patient was located at their home, located at [address] [place] [address], with _ in attendance. A signed authorization for treatment has been obtained via our standard authorization packet or by verbal consent by the patient or their legal business development representative. The patient's identity and location in [place] has been verified by our office staff. If it is determined that the patient should be evaluated in the clinic, the patient will be directed to the appropriate clinic or venue. A limited physical exam will be conducted reviewing those areas of the body visible via telecommunications. Total time spent preparing the chart, conducting the encounter with the patient and family, and time spent documenting, reviewing, and ordering tests was _ minutes. All records and visits comply with HIPAA standards. Got sick on sunday and took a test was positive, but lost her taste and smell yesterday so took 2 more tests today, both +. Also has body aches, congestion, headache and a sore throat., very fatigued Patient or Guardian reported vitals: Temp: 98.8 Wt: 173 Ht: 63 BP: _ HR: _ Sp02: _ History of Present Illness - See staff HPI. Physical Exam General: alert, no acute distress ENMT: oral mucosa moist, Cardiovascular: normal peripheral perfusion Respiratory: respirations non labored Extremities: no deformity, no trauma Neurological: oriented x 4, LOC appropriate for age, speech normal Assessment/Plan 1. COVID-19 (U07.1: COVID-19) - Precautions discussed in detail. When to return discussed along with when to go to the ER. Pt verbalized understanding. - Will send in Zpack, Medrol and Tessalon - OTC meds recommended - Follow up in 1 week if symptoms do not improve. Ordered: azithromycin, = 1 packet(s), Oral, As Directed, as directed on package labeling, X 5 day(s), # 6 tab(s), Refills(s) 0, Pharmacy: [facility]/pharmacy #[id number], 161, cm, 10/20/21 9:24:00 EDT, Height/Length Dosing, 94, kg, 10/20/21 9:24:00 EDT, Weight Dosing benzonatate, 200 mg = 1 cap(s), Oral, TID, X 7 day(s), # 21 cap(s), Refills(s) 0, Pharmacy: [facility]/pharmacy #[id number], 161, cm, 10/20/21 9:24:00 EDT, Height/Length Dosing, 94, kg, 10/20/21 9:24:00 EDT, Weight Dosing methylPREDNISolone, = 1 packet(s), Oral, As Directed, as directed on package labeling, X 6 day(s), # 21 tab(s), Refills(s) 0, Pharmacy: [facility]/pharmacy #[id number], 161, cm, 10/20/21 9:24:00 EDT, Height/Length Dosing, 94, kg, 10/20/21 9:24:00 EDT, Weight Dosing 2. Excessive dietary caloric intake (R63.2: Polyphagia) - Pt is on Wegovy for weight loss. Pt will look to see if it would be better for me to manage than her OBGYN. Ordered: azithromycin, = 1 packet(s), Oral, As Directed, as directed on package labeling, X 5 day(s), # 6 tab(s), Refills(s) 0, [id number] 161, cm, 10/20/21 9:24:00 EDT, Height/Length Dosing, 94, kg, 10/20/21 9:24:00 EDT, Weight Dosing benzonatate, 200 mg = 1 cap(s), Oral, TID, X 7 day(s), # 21 cap(s), Refills(s) 0, [id number], 161, cm, 10/20/21 9:24:00 EDT, Height/Length Dosing, 94, kg, 10/20/21 9:24:00 EDT, Weight Dosing methylPREDNISolone, = 1 packet(s), Oral, As Directed, as directed on package labeling, X 6 day(s), # 21 tab(s), Refills(s) 0, [id number], 161, cm, 10/20/21 9:24:00 EDT, Height/Length Dosing, 94, kg, 10/20/21 9:24:00 EDT, Weight Dosing Follow-up No qualifying data available Problem List/Past Medical History Ongoing Asymptomatic microscopic hematuria COVID-19 Excessive dietary caloric intake Flank pain Kidney stone Nocturia Ureteral stone UTI (urinary tract infection) Weak urine stream Historical No qualifying data Procedure/Surgical History ESW[facility] - Extracorporeal shockwave lithotripsy for renal calculus (2013). Medications azithromycin 250 mg Tab 5-day Dose Pack (Z-Rishi), 1 packet(s), Oral, As Directed benzonatate 200 mg oral capsule, 200 mg= 1 cap(s), Oral, TID Medrol Dosepack 4 mg Tab, 1 packet(s), Oral, As Directed Ozempic 2 mg/3 mL (0.25 mg or 0.5 mg dose) subcutaneous solution, 0.5 mg, SubCutaneous, qWeek Allergies Levaquin (Unknown) Reglan (Unknown) penicillins (Unknown) Social History Tobacco Never (less than 100 in lifetime) Tobacco Use:., 08/03/2021 Immunizations Vaccine Date Status Comments SARS-CoV-2 mRNA (tozinameran 5y-11y) vac 2020 Recorded 2 vaccines [facility] Comment on above: Result Comment: Elec tronically Signed By: Jez PASTRANA, Cory Hansen.br\Date and Time Signed: 01/30/23 15:20 EST Hospital Discharge instructions 10-20-2021 Note Date & Type Note Facility 10-20-2021 Hospital Discharg e instructions Patient Education 10/20/2021 09:54:39 Dietary Guidelines to Help Prevent Kidney Stones Dietary Guidelines to Help Prevent Kidney Stones Kidney stones are deposits of minerals and salts that form inside your kidneys. Your risk of developing kidney stones may be greater depending on your diet, your lifestyle, the medicines you take, and whether you have certain medical conditions. Most people can reduce their chances of developing kidney stones by following the instructions below. Depending on your overall health and the type of kidney stones you tend to develop, your dietitian may give you more specific instructions. What are tips for following this plan? Reading food labels Choose foods with no salt added or low-salt labels. Limit your sodium intake to less than 1500 mg per day. Choose foods with calcium for each meal and snack. Try to eat about 300 mg of calcium at each meal. Foods that contain 200 500 mg of calcium per serving include: ?8 oz (237 ml) of milk, fortified nondairy milk, and fortified fruit juice. ?8 oz (237 ml) of kefir, yogurt, and soy yogurt. ?4 oz (118 ml) of tofu. ?1 oz of cheese. ?1 cup (300 g) of dried figs. ?1 cup (91 g) of cooked broccoli. ?1 3 oz can of sardines or mackerel. Most people need 1000 to 1500 mg of calcium each day. Talk to your dietitian about how much calcium is recommended for you. Shopping Buy plenty of fresh fruits and vegetables. Most people do not need to avoid fruits and vegetables, even if they contain nutrients that may contribute to kidney stones. When shopping for convenience foods, choose: ?Whole pieces of fruit. ?Premade salads with dressing on the side. ?Low-fat fruit and yogurt smoothies. Avoid buying frozen meals or prepared deli foods. Look for foods with live cultures, such as yogurt and kefir. Cooking Do not add salt to food when cooking. Place a salt shaker on the table and allow each person to add his or her own salt to taste. Use vegetable protein, such as beans, textured vegetable protein (TVP), or tofu instead of meat in pasta, casseroles, and soups. Meal planning Eat less salt, if told by your dietitian. To do this: ?Avoid eating processed or premade food. ?Avoid eating fast food. Eat less animal protein, including cheese, meat, poultry, or fish, if told by your dietitian. To do this: ?Limit the number of times you have meat, poultry, fish, or cheese each week. Eat a diet free of meat at least 2 days a week. ?Eat only one serving each day of meat, poultry, fish, or seafood. ?When you prepare animal protein, cut pieces into small portion sizes. For most meat and fish, one serving is about the size of one deck of cards. Eat at least 5 servings of fresh fruits and vegetables each day. To do this: ?Keep fruits and vegetables on hand for snacks. ?Eat 1 piece of fruit or a handful of berries with breakfast. ?Have a salad and fruit at lunch. ?Have two kinds of vegetables at dinner. Limit foods that are high in a substance called oxalate. These include: ?Spinach. ?Rhubarb. ?Beets. ?Potato chips and german fries. ?Nuts. If you regularly take a diuretic medicine, make sure to eat at least 1 2 fruits or vegetables high in potassium each day. These include: ?Avocado. ?Banana. ?[place], prune, carrot, or tomato juice. ?Baked potato. ?Cabbage. ?Beans and split peas. General instructions Drink enough fluid to keep your urine clear or pale yellow. This is the most important thing you can do. Talk to your health care provider and dietitian about taking daily supplements. Depending on your health and the cause of your kidney stones, you may be advised: ?Not to take supplements with vitamin C. ?To take a calcium supplement. ?To take a daily probiotic supplement. ?To take other supplements such as magnesium, fish oil, or vitamin B6. Take all medicines and supplements as told by your health care provider. Limit alcohol intake to no more than 1 drink a day for non women and 2 drinks a day for men. One drink equals 12 oz of beer, 5 oz of wine, or 1 oz of hard liquor. Lose weight if told by your health care provider. Work with your dietitian to find strategies and an eating plan that works best for you. What foods are not recommended? Limit your intake of the following foods, or as told by your dietitian. Talk to your dietitian about specific foods you should avoid based on the type of kidney stones and your overall health. Grains Breads. Bagels. Rolls. Baked goods. Salted crackers. Cereal. Pasta. Vegetables Spinach. Rhubarb. Beets. Canned vegetables. Pickles. Olives. Meats and other protein foods Nuts. Nut butters. Large portions of meat, poultry, or fish. Salted or cured meats. Deli meats. Hot dogs. Sausages. Dairy Cheese. Beverages Regular soft drinks. Regular vegetable juice. Seasonings and other foods Seasoning blends with salt. Salad dressings. Canned soups. Soy sauce. Ketchup. Barbecue sauce. Canned pasta sauce. Casseroles. Pizza. Lasagna. Frozen meals. Potato chips. Yoruba fries. Summary You can reduce your risk of kidney stones by making changes to your diet. The most important thing you can do is drink enough fluid. You should drink enough fluid to keep your urine clear or pale yellow. Ask your health care provider or dietitian how much protein from animal sources you should eat each day, and also how much salt and calcium you should have each day. This information is not intended to replace advice given to you by your health care provider. Make sure you discuss any questions you have with your health care provider. Document Released: 06/09/2011 Document Revised: 06/04/2019 Document Reviewed: 01/23/2017 [employer] Patient Education 2020 [employer]. Follow Up Care 10/19/2021 08:47:02 With:Wilfredo PASTRANA, JORGE Stringer, URO Address: When: Unknown [facility] Hospital Discharge instructions 08-03-2021 Note Date & Type Note Facility 08-03-2021 Hospital Discharg e instructions Patient Education 08/03/2021 16:05:36 Kidney Stones, [id number]-[id number] Kidney Stones Kidney stones are rock-like masses that form inside of the kidneys. Kidneys are organs that make pee (urine). A kidney stone may move into other parts of the urinary tract, including: The tubes that connect the kidneys to the bladder (ureters). The bladder. The tube that carries urine out of the body (urethra). Kidney stones can cause very bad pain and can block the flow of pee. The stone usually leaves your body (passes) through your pee. You may need to have a doctor take out the stone. What are the causes? Kidney stones may be caused by: A condition in which certain glands make too much parathyroid hormone (primary hyperparathyroidism). A buildup of a type of crystals in the bladder made of a chemical called uric acid. The body makes uric acid when you eat certain foods. Narrowing (stricture) of one or both of the ureters. A kidney blockage that you were born with. Past surgery on the kidney or the ureters, such as gastric bypass surgery. What increases the risk? You are more likely to develop this condition if: You have had a kidney stone in the past. You have a family history of kidney stones. You do not drink enough water. You eat a diet that is high in protein, salt (sodium), or sugar. You are overweight or very overweight (obese). What are the signs or symptoms? Symptoms of a kidney stone may include: Pain in the side of the belly, right below the ribs (flank pain). Pain usually spreads (radiates) to the groin. Needing to pee often or right away (urgently). Pain when going pee (urinating). Blood in your pee (hematuria). Feeling like you may vomit (nauseous). Vomiting. Fever and chills. How is this treated? Treatment depends on the size, location, and makeup of the kidney stones. The stones will often pass out of the body through peeing. You may need to: Drink more fluid to help pass the stone. In some cases, you may be given fluids through an IV tube put into one of your veins at the hospital. Take medicine for pain. Make changes in your diet to help keep kidney stones from coming back. Sometimes, medical procedures are needed to remove a kidney stone. This may involve: A procedure to break up kidney stones using a beam of light (laser) or shock waves. Surgery to remove the kidney stones. Follow these instructions at home: Medicines Take qvnm-lke-bwjdzlm and prescription medicines only as told by your doctor. Ask your doctor if the medicine prescribed to you requires you to avoid driving or using heavy machinery. Eating and drinking Drink enough fluid to keep your pee pale yellow. You may be told to drink at least 8 10 glasses of water each day. This will help you pass the stone. If told by your doctor, change your diet. This may include: ?Limiting how much salt you eat. ?Eating more fruits and vegetables. ?Limiting how much meat, poultry, fish, and eggs you eat. Follow instructions from your doctor about eating or drinking restrictions. General instructions Collect pee samples as told by your doctor. You may need to collect a pee sample: ?24 hours after a stone comes out. ?8 12 weeks after a stone comes out, and every 6 12 months after that. Strain your pee every time you pee (urinate), for as long as told. Use the strainer that your doctor recommends. Do not throw out the stone. Keep it so that it can be tested by your doctor. Keep all follow-up visits as told by your doctor. This is important. You may need follow-up tests. How is this prevented? To prevent another kidney stone: Drink enough fluid to keep your pee pale yellow. This is the best way to prevent kidney stones. Eat healthy foods. Avoid certain foods as told by your doctor. You may be told to eat less protein. Stay at a healthy weight. Where to find more information National Kidney Foundation (NKF): www.kidney.org [employer] (UCF): www.urologyhealth.org Contact a doctor if: You have pain that gets worse or does not get better with medicine. Get help right away if: You have a fever or chills. You get very bad pain. You get new pain in your belly (abdomen). You pass out (faint). You cannot pee. Summary Kidney stones are rock-like masses that form inside of the kidneys. Kidney stones can cause very bad pain and can block the flow of pee. The stones will often pass out of the body through peeing. Drink enough fluid to keep your pee pale yellow. This information is not intended to replace advice given to you by your health care provider. Make sure you discuss any questions you have with your health care provider. Document Released: 07/31/2008 Document Revised: 07/01/2019 Document Reviewed: 07/01/2019 [employer] Patient Education 2019 [employer]. Follow Up Care 07/21/2021 10:01:36 With:pending results Address:Unknown When: Unknown [facility] Evaluation + Plan note 08-03-2021 Note Date & Type Note Facility 08-03-2021 Evaluation + Plan note Diagnostic Tests PendingUrine Culture 08/03/21 [facility] Evaluation + Plan note Note Date & Type Note Facility Evaluation + Plan note No data available for this section [facility] Hospital Discharge instructions Note Date & Type Note Facility Hospital Discharge instructions No data available for this section [facility] Progress note Note Date & Type Note Facility Progress note No data available for this section [facility] Assessments No Assessments Information Available Summary Purpose Family History No Family History Records FoundNo Family History Records FoundNo Family History Records FoundNo Family History Records Found Advance Directives No Advanced Directives Records FoundNo Advanced Directives Records FoundNo Advanced Directives Records FoundNo Advanced Directives Records Found Additional Source Comments INFORMATION SOURCE (unrecogn ized section and content) DATE CREATED AUTHOR 04/19/2021 [facility] DATE CREATED AUTHOR AUTHOR'S ORGANIZ ATION 05/16/2021 [facility] DATE CREATED AUTHOR AUTHOR'S ORGANIZ ATION 06/03/2022 [facility] DATE CREATED AUTHOR AUTHOR'S ORGANIZ ATION 02/08/2023 [facility] Care Team (unrecognized sect ion and content) Personnel Name: KEVIN CASTILLO MD Address: [address] [place] [id number] FOR RECORDS PERTAINING TO PATIENTS WHO ARE OR HAVE BEEN ENROLLED IN A CHEMICAL DEPENDENCY/SUBSTANCEABUSE PROGRAM, SOME INFORMATION MAY BE OMITTED. This clinical summary was aggregated from multiple sources. Caution should be exercised in using it in the provision of clinical care. This summary normalizes information from multiple sources, and as a consequence, information in this document may materially change the coding, format and clinical context of patient data. In addition, data may be omitted in some cases. CLINICAL DECISIONS SHOULD BE BASED ON THE PRIMARY CLINICAL RECORDS. [facility]. provides no warranty or guarantee of the accuracy or completeness of information in this document.
--- NOTE | 2023-02-21 23:40 | ED_ITS ---
HPI - Abdominal Pain General Chief Complaint: Abdominal Pain Stated Complaint: Flank Pain, Hx Kidney Stones Time Seen by Provider: 02/21/23 22:07 Source: patient Mode of arrival: walk-in Limitations: no limitations History of Present Illness HPI narrative: This 48-year-old female with a history of kidney stones who is seen in this emergency department yesterday and diagnosed with obstructive uropathy with 2 kidney stones at the left UPJ presents for evaluation of ongoing nausea, vomiting and lower abdominal pain/flank pain. She was discharged home with prescription for Toradol, [place] and Zofran but states the Zofran is not helping her and she is having continual nausea with vomiting. She states at one point she had chills but has not had a fever. She has had lithotripsy in September [address] Moreno Related Data Previous Rx's Medication Instructions Recorded cephalexin 500 mg capsule 500 mg PO BID 7 days #14 caps 02/20/23 hydrocodone 5 mg-acetaminophen 325 1 tab PO Q6H PRN pain 4 days #14 02/20/23 mg tablet tabs ketorolac 10 mg tablet 10 mg PO Q8H PRN pain #14 tabs 02/20/23 ondansetron 4 mg disintegrating 4 mg PO Q6H PRN nausea and 02/20/23 tablet vomiting #20 tabs tamsulosin 0.4 mg capsule (Flomax) 0.4 mg PO DAILY #14 caps 02/20/23 Allergies Allergy/AdvReac Type Severity Reaction Status Date / Time levofloxacin [From Levaquin] AdvReac Severe Verified 02/21/23 22:11 metoclopramide [From Reglan] AdvReac Severe Verified 02/21/23 22:11 Review of Systems ROS Status of ROS 10 or more systems reviewed and unremark able except as noted in history and below Exam Narrative Exam Narrative: Nurses note and vital signs reviewed and patient is not hypoxic. General: Alert, nontoxic but uncomfortable appearing female, no respiratory distress, no active vomiting Skin: Warm, dry, no pallor noted. There is no rash noted. Head: Normocephalic, atraumatic Eye: Normal conjunctiva, no drainage, EOMI. PERRL Ears, Nose, Mouth, and Throat: oral mucosa is moist. Cardiovascular: Regular Rate and Rhythm S1 and S2, no murmurs rubs or gallops appreciated Respiratory: Patient is in no distress, no accessory muscle use, lungs are clear to auscultation, no wheezing, rales or rhonchi Back: Left CVA tenderness GI: Normal bowel sounds, no tenderness to palpation, No reproducible tenderness in the left lower quadrant or suprapubic area Musculoskeletal: The patient has no evidence of calf tenderness, no pitting edema, symmetrical pulses noted bilaterally Neurological: A&O x4, normal speech Psychiatric: Cooperative Constitutional Vital Signs, click to edit/add: Last Vital Signs Temp 98.9 F 02/21/23 22:08 Pulse 82 02/22/23 01:40 Resp 20 02/22/23 01:40 BP 132/94 H 02/22/23 01:40 Pulse Ox 97 02/22/23 01:40 O2 Del Method Room Air 02/21/23 22:08 Course Vital Signs Vital signs: Vital Signs Temperature 98.9 F 02/21/23 22:08 Pulse Rate 74 02/21/23 22:08 Respiratory Rate 18 02/21/23 22:08 Blood Pressure 117/70 02/21/23 22:08 Pulse Oximetry 99 02/21/23 22:08 Oxygen Delivery Method Room Air 02/21/23 22:08 Temperature 98.9 F 02/21/23 22:08 Pulse Rate 82 02/22/23 01:40 Respiratory Rate 20 02/22/23 01:40 Blood Pressure 132/94 H 02/22/23 01:40 Pulse Oximetry 97 02/22/23 01:40 Oxygen Delivery Method Room Air 02/21/23 22:08 MDM - Abdominal Pain MDM Narrative Medical decision making narrative: 48-year-old female who is in this emergency department yesterday for left flank pain and diagnosed with kidney stones presents for evaluation of ongoing pain w ith nausea and vomiting. She was discharged home with prescription for Zofran which she states is not helping her nausea vomiting and [place] which she states is not strong enough for her pain. She was also discharged with prescription for Keflex and Flomax. She is a patient of Dr Villalobos and had lithotripsy earlier this year. She states that she had chills earlier but has not had a fever. He was afebrile upon arrival. An IV was placed and she was medicated with IV fluids, IV Zofran as we are out of Phenergan and she is ALLERGIC to Reglan as well as IV Dilaudid. Routine labs are reviewed. Her white count is normal today and lower than it was yesterday. Urine does not show any sign of infection. Her creatinine has improved since yesterday. Reevaluation she states she is feeling better. She will be transitioned to oral Percocet and discharged home with prescription for Percocet and Phenergan.I encouraged her to follow up closely with her urologist as she may require lithotripsy again. Lab Data Labs: Lab Results 02/21/23 02/21/23 Range/Units 23:05 23:30 WBC 7.8 (4.0-11.0) 10^3/uL RBC 4.18 L (4.20-5.40) 10^6/uL Hgb 12.6 (12.0-16.0) g/dL Hct 39.2 (36.0-48.0) % MCV 93.8 (81.0-99.0) fL MCH 30.1 (26.7-34.0) pg MCHC 32.1 (29.9-35.2) g/dL RDW 13.4 (11.0-15.0) % Plt Count 323 (150-450) 10^3/uL MPV 10.1 (9.5-13.5) fL Neut % (Auto) 47.5 (43.0-75.0) % Lymph % (Auto) 36.5 (20.5-60.0) % [place] % (Auto) 9.5 (1.7-12.0) % Eos % (Auto) 5.8 (0.9-7.0) % Baso % (Auto) 0.4 (0.2-2.0) % Neut # (Auto) 3.7 (1.4-6.5) 10^3/uL Lymph # (Auto) 2.8 (1.2-3.8) 10^3/uL [place] # (Auto) 0.7 (0.3-0.8) 10^3/uL Eos # (Auto) 0.5 (0.0-0.7) 10^3/uL Baso # (Auto) 0.0 (0.0-0.1) 10^3/uL Abs Immat Gran (auto) 0.02 (0.00-0.03) 10^3/uL Imm/Tot Granulo (auto) 0.3 (0.0-0.5) % Sodium 137 (136-145) mmol/L Potassium 4.0 (3.5-5.1) mmol/L Chloride 103 (98-107) mmol/L Carbon Dioxide 28.6 (21.0-32.0) mmol/L Anion Gap 9.4 BUN 18.0 (7.0-18.0) mg/dL Creatinine 1.17 H (0.55-1.02) mg/dL Est GFR ( Amer) 60 (>=60) Est GFR (Non-Af Amer) 49 L (>=60) BUN/Creatinine Ratio 15.4 Glucose 98 (74-106) mg/dL Lactate 0.6 (0.4-2.0) mmol/L Calcium 9.8 (8.5-10.1) mg/dL Total Bilirubin 0.3 (0.2-1.0) mg/dL AST 27 (15-37) U/L ALT 42 (14-59) U/L Alkaline Phosphatase 66 (46-116) U/L Total Protein 7.4 (6.4-8.2) g/dL Albumin 3.7 (3.4-5.0) g/dL Globulin 3.7 g/dL Albumin/Globulin Ratio 1.0 Urine Color Lt. yellow (YELLOW) Urine Clarity Clear (CLEAR) Urine pH 6.5 (5.0-9.0) Ur Specific [place] 1.020 (1.005-1.025) Urine Protein Negative (NEG/TRACE) mg/dL Urine Glucose (UA) Negative (NEGATIVE) mg/dL Urine Ketones Negative (NEGATIVE) mg/dL Urine Occult Blood Negative (NEGATIVE) Urine Nitrite Negative (NEGATIVE) Urine Bilirubin Negative (NEGATIVE) Urine Urobilinogen 0.2 (0.2-1.0) EU/dL Ur Leukocyte Esterase Negative (NEGATIVE) Urine RBC 0-2 (0-2) #/HPF Urine WBC 0-2 A (NONE SEEN) #/HPF Ur Squamous Epith Cells Few A (NONE/RARE) #/LPF Urine Crystals None seen (None Seen) #/HPF Urine Bacteria None seen (NONE SEEN) #/HPF Urine Casts None seen (NONE SEEN) #/LPF Urine Mucus None seen (NONE SEEN) Ur Culture Indicated? Already ordered Discharge Plan Discharge Chief Complaint: Abdominal Pain Clinical Impression: Renal colic, Kidney stones Patient Disposition: Home, Self-Care Time of Disposition Decision: 01:16 Condition: Good Prescriptions / Home Meds: No Action ondansetron 4 mg tablet,disintegrating 4 mg PO Q6H PRN (Reason: nausea and vomiting) Qty: 20 0RF tamsulosin [Flomax] 0.4 mg capsule 0.4 mg PO DAILY Qty: 14 0RF ketorolac 10 mg tablet 10 mg PO Q8H PRN (Reason: pain) Qty: 14 0RF cephalexin 500 mg capsule 500 mg PO BID 7 Days Qty: 14 0RF hydrocodone-acetaminophen 5-325 mg tablet 1 tab PO Q6H PRN (Reason: pain) 4 Days Qty: 14 0RF Rx Instructions: ICD 10 = N20 - kidney stone Instructions: Kidney Stones (ED), Renal Colic (ED), Hydronephrosis (ED), Lithotripsy (DC) Stand Alone Forms: Portal Instructions Referrals: Myra Villalobos MD [Physician] - As soon as possible ANIBAL READ [Primary Care Provider] - 1 week Discharge Date/Time: 02/22/23 01:40
[2023-02-21 23:44] LABS: Basophils Percent Auto 0.4 % (0.2-2.0); Eosinophils Absolute Auto 0.5 10^3/uL (0.0-0.7); Eosinophils Percent Auto 5.8 % (0.9-7.0); Hematocrit 39.2 % (36.0-48.0); Hemoglobin 12.6 g/dL (12.0-16.0); Immature Granulocytes Abs Auto 0.02 10^3/uL (0.00-0.03); Immature Granulocytes Pct Auto 0.3 % (0.0-0.5); Lymphocytes Absolute Auto 2.8 10^3/uL (1.2-3.8); Lymphocytes Percent Auto 36.5 % (20.5-60.0); Mean Corpuscular HGB Conc 32.1 g/dL (29.9-35.2); Mean Corpuscular Hemoglobin 30.1 pg (26.7-34.0); Mean Corpuscular Volume 93.8 fL (81.0-99.0); Mean Platelet Volume 10.1 fL (9.5-13.5); Monocytes Absolute Auto 0.7 10^3/uL (0.3-0.8); Monocytes Percent Auto 9.5 % (1.7-12.0); Neutrophils Absolute Auto 3.7 10^3/uL (1.4-6.5); Neutrophils Percent Auto 47.5 % (43.0-75.0); Platelet Count 323 10^3/uL (150-450); Red Blood Count 4.18 10^6/uL (4.20-5.40); Red Cell Distribution Width 13.4 % (11.0-15.0); White Blood Count 7.8 10^3/uL (4.0-11.0)
[2023-02-21 23:46] LABS: Bilirubin Urine NEGATIVE (NEGATIVE); Blood Urine NEGATIVE (NEGATIVE); Clarity Urine CLEAR (CLEAR); Color Urine LT. YELLOW (YELLOW); Glucose Urine UA NEGATIVE (NEGATIVE); Ketones Urine NEGATIVE (NEGATIVE); Leukocyte Esterase Urine NEGATIVE (NEGATIVE); Nitrite Urine NEGATIVE (NEGATIVE); Protein Urine NEGATIVE (NEG/TRACE); Urobilinogen Urine 0.2 EU/dL (0.2-1.0); pH Urine 6.5 (5.0-9.0)
[2023-02-21 23:55] LABS: Alanine Aminotransferase 42 U/L (14-59); Albumin Level 3.7 g/dL (3.4-5.0); Alkaline Phosphatase 66 U/L (46-116); Anion Gap 9.4; Aspartate Amino Transferase 27 U/L (15-37); BUN Creatinine Ratio 15.4; Bilirubin Total 0.3 mg/dL (0.2-1.0); Calcium 9.8 mg/dL (8.5-10.1); Carbon Dioxide 28.6 mmol/L (21.0-32.0); Chloride 103 mmol/L (98-107); Estimated GFR (African America 60 (>=60); Estimated GFR (Non-African Ame 49 (>=60); Globulin 3.7 g/dL; Glucose 98 mg/dL (74-106); Sodium 137 mmol/L (136-145); Total Protein 7.4 g/dL (6.4-8.2)
[2023-02-21 23:58] LABS: Lactate/Lactic Acid 0.6 mmol/L (0.4-2.0)
[2023-02-22] LABS: Bacteria Urine NONE SEEN #/HPF (NONE SEEN); Cast Seen? NONE SEEN #/LPF (NONE SEEN); Crystals Seen? None Seen #/HPF (None Seen); Mucus Urine NONE SEEN (NONE SEEN); RBC Urine 0-2 #/HPF (0-2); Squamous Epithelial Cell Urine FEW #/LPF (NONE/RARE); Urine Culture Indicated ALREADY ORDERED; WBC Urine 0-2 #/HPF (NONE SEEN)
[2023-02-22] MEDS: 0.9 % SODIUM CHLORIDE 1,000 ML 1000 ML IV (00:14)
[2023-02-22] MEDS: HYDROMORPHONE HCL 1 MG/ML CARTRIDGE IV (00:15)
[2023-02-22 00:55] VITALS: PULSE 77; RESP 14; O2SAT 98
[2023-02-22] MEDS: OXYCODONE HCL/ACETAMINOPHEN 5MG/325MG 2 TAB PO (01:28)
[2023-02-22] MEDS: OXYCODONE HCL/ACETAMINOPHEN 5MG/325MG 1 TAB PO (01:28)
[2023-02-22 01:40] VITALS: BP 132/94; PULSE 82; RESP 20; O2SAT 97
== END 2023-02-22 01:40 | disposition home or self-care (01) ==
PROVIDERS: Emergency Provider Emergency Medicine; PCP Family Medicine
DX: N20.0 Calculus of kidney (principal); Z87.442 Personal history of urinary calculi
CPT/HCPCS: 36415; 80053; 81001; 83605; 85025; 87040; 87086; 96361; 96374; 99284; J1170

== ENCOUNTER 2024-04-23 23:57 | Emergency (ER) | payer SELFPAY ==
[2024-04-24] VITALS (33 sets, daily range): BP systolic 99–121; BP diastolic 67–91; PULSE 64–97; TEMP 36.9–37.1; O2SAT 94–100; BMI 27.4
--- OUTSIDE RECORDS SUMMARY | 2024-04-24 00:03 | XMS_ITS | CCD ---
Author Organization [facility] Care Team Providers Care Cash Teller Name Role Phone KEVIN CASTILLO Primary Care [...] LUE ., MYRA Damian Consulting Unavailable LUE .MYRA Attending Unavailable CASTILLO ., DR KEVIN Lipscomb Primary Care Unavailable LUE .MYRA Admitting Unavailable LUE .MYRA Consulting Unavailable CASTILLO ., DR KEVIN Lipscomb Primary Care Unavailable CATIA ., DR WHITNEY Brand Attending Unavailable BARDALES ., DR WHITNEY Brand Admitting Unavailable CASTILLO ., DR KEVIN Lipscomb Primary Care Unavailable GLADIS ., HARRY Attending Unavailable SAADIA SUNSHINE Consulting Unavailable GLADIS ., HARRY Admitting Unavailable GLADIS ., HARRY Consulting Unavailable MICHELLE SMITH Consulting Unavailable KENNEY ., BOBO MARTINEZ Consulting Unavailrenae NUNEZ, DR GIL Bond Admitting Unavailrenae NUNEZ, DR GIL Bond Attending Unavailabl e CASTILLO ., DR KEVIN Lipscomb Primary Care Unavailable SERA SCHULER Consulting Unavailable CASTILLO ., DR KEVIN Lipscomb Consulting Unavailable CASTILLO ., DR KEVIN Lipscomb Primary Care Unavailable CASTILLO ., DR KEVIN Lipscomb Attending Unavailable CASTILOL ., DR KEVIN Lipscomb Admitting Unavailable ZIEBER, DR JOSE Caldwell Consulting Unavailable CRANE JR ., DR SILVIO Barrett Admitting Unavaila ble CRANE JR ., DR SILVIO Barrett Consulting Unavaila ble CASTILLO ., DR KEVIN Lipscomb Primary Care Unavailable CRANE JR ., DR SILVIO Barrett Attending Unavaila ble TAMMIE BURCH Consulting Unavailable CASTILLO ., DR KEVIN Lipscomb Primary Care Unavailable LUE ., MYRA Damian Admitting Unavailable LUE ., MYRA Damian Attending Unavailable MISC, DR LEBRON Consulting Unavailable CASTILLO ., DR KEVIN Lipscomb Primary Care Unavailable MISC, DR LEBRON Attending Unavailable MISC, DR LEBRON Admitting Unavailable CASTILLO ., DR KEVIN Lipscomb Primary Care Unavailable CASTILLO ., DR KEVIN Lipscomb Consulting Unavailable CASTILLO ., DR KEVIN Lipscomb Attending Unavailable CASTILLO ., DR KEVIN Lipscomb Admitting Unavailable ZIEBER, DR JOSE Caldwell Consulting Unavailable CASTILLO ., DR KEVIN Lipscomb Primary Care Unavailable TEJ ., DR MCDUFFIE Admitting Unavailable TEJ ., DR MCDUFFIE Consulting Unavailable TEJ ., DR MCDUFFIE Attending Unavailable CASTILLO ., DR KEVIN Lipscomb Attending Unavailable CASTILLO ., DR KEVIN Lipscomb Primary Care Unavailable CASTILLO ., DR KEVIN Lipscomb Consulting Unavailable CASTILLO ., DR KEVIN Lipscomb Admitting Unavailable Jez Cory ELizzy Primary Care Physician Cory Story ELizzy Attending Unavailable Ross, Cory E. Attending Unavailable Ross, Cory E. Attending Unavailable Ross, Cory E. Attending Unavailable Ross, Cory E. Admitting Unavailable Ross, Cory E. Attending Unavailable Ross, Cory E. Attending Unavailable Ross, Cory E. Admitting Unavailable Ross, Cory E. Attending Unavailable Ross, Cory E. Attending Unavailable Ross, Cory E. Attending Unavailable Ross, Cory E. Attending Unavailable Ross, Cory E. Attending Unavailable Ross, Cory E. Attending Unavailable Ross, Cory E. Attending Unavailable RADHA ARGUETA Attending Unavailable Ross, Cory E. Attending Unavailable Ross, Cory E. Attending Unavailable Ross, Cory E. Attending Unavailable Ross, Cory E. Attending Unavailable Unavailable Unavailable Unavailable Allergies Allergy Classification Reported Allergen(s) Allergy Type Date of Onset Reaction(s) Facility (7 sources) levoFLOXacin; Translations: [Levofloxacin] Drug Allergy 4 Unknown (qualifier value) [facility] (7 sources) Metoclopramide; Translations: [Metoclopramide ] Drug Allergy 4 Unknown (qualifier value) [facility] (7 sources) Penicillins; Translations: [penicillins] Allergy to substance Unknown (qualifier value) [facility] (4 sources) Iothalamate; Translations: [Reglan] Drug Allergy 4 [facility] (4 sources) levoFLOXacin; Translations: [Levaquin] Drug Allergy 6 [facility] (2 sources) Penicillin Drug Allergy 7 [facility] (1 source) Penicillins; Translations: [penicillins] Drug allergy Unknown (qualifier value) [facility] [place] Comment on above: not allergic to this Medications Current Medications Medication Drug Class(es) Dates Sig (Normalized) Sig (Original) acetaminophen 500 mg oral tablet (1 source) Start: 04-24-2019 Acetaminophen (Tylenol Extra Strength) 500 mg Tablet Active 1000 MG PO As Directed April 24, 2019 1:00am amitriptyline hydrochloride 10 mg oral tablet (2 sources) Tricyclic Antidepressant Start: 04-04-2018 End: 05-05-2019 take 20 mg by mouth once daily at bedtime Amitriptyline Active 20 MG Oral Daily at bedtime April 04, 2018 12:09pm amoxicillin 500 mg oral capsule (1 source) Penicillin-class Antibacterial Start: 07-08-2023 take 500 mg by mouth twice daily Amoxicillin Active 500 MG PO Twice daily July 08, 2023 12:00am buPROPion (2 sources) Aminoketone Start: 07-08-2023 Bupropion Hcl Active MG PO July 08, 2023 12:00am Start: 05-07-2023 take 1 tablet by bri th every twenty-four hours Wellbutrin XL 150 mg/24 hours Tab-ER 150 mg = 1 tab(s), Oral, q24hr, # 90 tab(s), Refills(s) 0, Pharmacy: [facility] #[id number], 161, cm, 05/07/23 7:21:00 EDT, Height/Length Dosing, 82.7, kg, 05/07/23 7:21:00 EDT, Weight Dosing Start Date: 05/07/23 Status: Ordered cephalexin 500 mg oral capsule (1 source) Cephalosporin Antibacterial Start: 01-10-2024 End: 01-17-2024 take 1 capsule by mouth every twelve hours Keflex 500 mg Cap 500 mg = 1 cap(s), Oral, q12hr, X 7 day(s), # 14 cap(s), Refills(s) 0, Pharmacy: [facility] #[id number], 161, cm, 01/10/24 15:51:00 EST, Height/Length Dosing, 73.5, kg, 01/10/24 15:51:00 EST, Weight Dosing Start Date: 01/10/24 Stop Date: 01/17/24 Status: Ordered Cymbalta 30 mg Cap-DR (2 sources) Start: [...] Dosing Start Date: 10/20/21 Status: Ordered DULoxetine 20 mg delayed release oral capsule (2 sources) Serotonin and Norepinephrine Reuptake Inhibitor Start: 10-15-2023 take 1 capsule by mouth twice daily Cymbalta 20 mg oral delayed release capsule 20 mg = 1 cap(s), Oral, BID, # 90 cap(s), Refills(s) 0, Pharmacy: [facility] #[id number], 161, cm, 10/15/23 9:52:00 EDT, Height/Length Dosing, 75.2, kg, 10/15/23 9:52:00 EDT, Weight Dosing Start Date: 10/15/23 Status: Ordered Start: 07-27-2021 take 1 mg by mouth twice daily Cymbalta 30 mg Cap-DR mg, Oral, BID, Refills(s) 0 Start Date: 09/21/20 Status: Ordered gabapentin 300 mg oral capsule (3 sources) Anti-epileptic Agent Start: 08-03-2021 gabapenti n 300 mg Cap Refills(s) 0 Start Date: 08/03/21 Status: Ordered LORazepam 0.5 mg oral tablet (1 source) Benzodiazepine Start: 07-02-2023 take 2 tablets by mouth three times daily as needed for anxiety Ativan 0.5 mg Tab 1 mg = 2 tab(s), Oral, TID, PRN for anxiety, # 30 tab(s), Refills(s) 0, Pharmacy: [facility] #[id number], 161, cm, 07/02/23 15:30:00 EDT, Height/Length Dosing, 80.9, kg, 07/02/23 15:30:00 EDT, Weight Dosing Start Date: 07/02/23 Status: Ordered meloxicam 15 mg oral tablet (2 sources) Nonsteroidal Anti-inflammatory Drug Start: 04-04-2018 End: 04-24-2019 take 15 mg by mouth once daily Meloxicam Active 15 MG Oral daily April 04, 2018 12:09pm omeprazole 40 mg delayed release oral capsule (2 sources) Proton Pump Inhibitor Start: 10-15-2023 take 1 capsule by mouth once daily omeprazole 40 mg Cap-DR 40 mg = 1 cap(s), Oral, Daily, # 90 cap(s), Refills(s) 1, Pharmacy: [facility] #[id number], 161, cm, 10/15/23 9:52:00 EDT, Height/Length Dosing, 75.2, kg, 10/15/23 9:52:00 EDT, Weight Dosing Start Date: 10/15/23 Status: Ordered Start: 04-05-2023 take 1 capsule by [facility] once daily omeprazole 40 mg Cap-DR 40 mg = 1 cap(s), Oral, Daily, # 90 cap(s), Refills(s) 1, Pharmacy: [facility] #[id number], 161, cm, 04/05/23 7:36:00 EST, Height/Length Dosing, 83.9, kg, 04/05/23 7:36:00 EST, Weight Dosing Start Date: 04/05/23 Status: Ordered phentermine hydrochloride 37.5 mg oral tablet (3 sources) Sympathomimetic Amine Anorectic Start: 01-10-2024 Adipex-P 37.5 mg Tab 37.5 mg = 1 tab(s), Oral, Daily, BMI of 28, # 30 tab(s), Refills(s) 0, Pharmacy: [facility] #[id number], 161, cm, 01/10/24 15:51:00 EST, Height/Length Dosing, 73.5, kg, 01/10/24 15:51:00 EST, Weight Dosing Start Date: 01/10/24 Status: Ordered Start: 07-08-2023 Phentermine Ac tive MG PO July 08, 2023 12:00am Start: 05-07-2023 take 1 capsule by [facility] once daily Adipex-P 37.5 mg oral capsule 37.5 mg = 1 cap(s), Oral, Daily, # 30 cap(s), Refills(s) 0, Pharmacy: [facility] #[id number], 161, cm, 05/07/23 7:21:00 EDT, Height/Length Dosing, 82.7, kg, 05/07/23 7:21:00 EDT, Weight Dosing Start Date: 05/07/23 Status: Ordered predniSONE 20 mg oral tablet (5 sources) Start: 07-08-2023 take 20 mg by mouth twice daily Prednisone Active 20 MG PO Twice daily 10 5 July 08, 2023 12:00am Start: 08-03-2021 predniSONE 10 mg Tab Refills(s) 0 Start Date: 08/03/21 Status: Ordered Start: 04-04-2018 End: 04-16-2018 Prednisone Discontinued TABL ET April 04, 2018 1:00am April 16, 2018 10:15pm SUMAtriptan 50 mg oral tablet (2 sources) Serotonin-1b and Serotonin-1d Receptor Agonist Start: 04-04-2018 End: 04-24-2019 take 50 mg by mouth twice daily [...] Problem Classification Problem Date Documented Date Episodic/Chronic Administrative/socia l admission (1 source) Bereavement 07-02-2023 Episodic Calculus of urinary tract (20 sources) Kidney stone; Translations: [Calculus of kidney] Onset: 08-03-2021 Episodic Disorders of teeth and jaw (4 sources) Other specified disorders of teeth and supporting structures; Translations: [OTH SPEC DISORDERS TEETH SUPP STRCT] Onset: 03-24-2022 Episodic Esophageal disorders (2 sources) Gastroesophageal reflux disease 02-22-2023 Chronic Essential hypertension (2 sources) Hypertensive disorder 02-22-2023 Chronic Genitourinary symptoms and ill-defined conditions (13 sources) Nocturia; Translations: [Poor stream of urine] Onset: 10-27-2021 09-21-2020 Episodic Immunizations and screening for infectious disease (2 sources) Carrier or suspected carrier of Methicillin resistant Staphylococcus aureus; Translations: [Encounter for screening for human papillomavirus (HPV)] Onset: 10-27-2021 Episodic Other aftercare (1 source) Other intermodal owner operator truck driver (current) drug therapy; Translations: [OTH [facility]FP CURRENT DRUG THERAPY] Onset: 03-28-2022 Episodic Other connective tissue disease (1 source) Fibromyalgia; Translations: [FIBROMYALGIA] Onset: 03-28-2022 Episodic Other connective tissue disease (2 sources) Fibromyalgia 02-22-2023 Episodic Other lower respiratory disease (1 source) Personal history of pneumonia (recurrent); Translations: [PERSONAL HX OF PNEUMONIA RECURRENT] Onset: 03-28-2022 Episodic Other nervous system disorders (1 source) Atypical facial pain; Translations: [ATYPICAL FACIAL PAIN] Onset: 03-28-2022 Episodic Other nutritional; endocrine; and metabolic disorders (2 sources) Calorie overload 01-30-2023 Chronic Other nutritional; endocrine; and metabolic disorders (2 sources) Overweight in adulthood with body mass index of 25 or more but less than 30; Translations: [Body mass index (BMI) 28.0-28.9, adult] Onset: 01-10-2024 Episodic Other nutritional; endocrine; and metabolic disorders (1 source) Overweight; Translations: [Overweight] Onset: 01-10-2024 Episodic Other nutritional; endocrine; and metabolic disorders (1 source) Body mass index 25-29 - overweight 01-10-2024 Episodic Other upper respiratory disease (2 sources) Allergic rhinitis 02-22-2023 Chronic Residual codes; unclassified (1 source) Acquired absence of other specified parts of digestive tract; Translations: [ACQ ABSENCE OTH PART DIGESTV TRACT] Onset: 03-28-2022 Episodic Residual codes; unclassified (1 source) Acquired absence of both cervix and uterus; Translations: [ACQUIRED ABSENCE BOTH CERVIX AND UTERUS] Onset: 03-28-2022 Episodic Residual codes; unclassified (1 source) Patient encounter status; Translations: [Other specified health status] Onset: 01-10-2024 Episodic Substance-related disorders (1 source) Nicotine dependence, cigarettes, uncomplicated; Translations: [NICOTINE DEPEND CIGARETTES UNCOMP] Onset: 03-28-2022 Chronic Systemic lupus erythematosus and connective tissue disorders (2 sources) Systemic lupus erythematosus 02-22-2023 Chronic Unclassified (5 sources) Asymptomatic microscopic hematuria 09-21-2020 Unclassified (4 sources) CONTACT W/AND (SUSP) EXPOS COVID-19; Translations: [CONTACT W/AND (SUSP) EXPOS COVID-19] Onset: 10-21-2021 Unclassified (1 source) Non-smoker 01-10-2024 Viral infection (2 sources) Disease caused by 2019-nCoV 01-30-2023 Past or Other Problems Problem Classification Problem Date Documented Date Episodic/Chronic Abdominal pain (9 sources) Abdominal pain; Translations: [Unspecified abdominal pain] Onset: 08-03-2021 Episodic E Codes: Fall (1 source) Fall on same level from slipping, tripping and stumbling without subsequent striking against object, initial encounter; Translations: [FALL SAME LVL SLIP NO STRK OBJ INIT] Onset: 06-08-2021 Episodic Nonmalignant breast conditions (7 sources) Unspecified [...] infection, site not specified] Onset: 08-03-2021 Episodic Viral infection (1 source) Viral infection of skin Onset: 05-18-2021 05-28-2023 Episodic Results Test Name Value Interpretation Reference Range Facility Ambulatory Visit Summaryon 0 03-03-2024 Ambulatory Visit Summary Ambulatory Visit Summary MIRIAM BRYAN :1975 Visit Date:03/03/2024 Ambulatory Visit Instructions Your Diagnosis Excessive dietary caloric intake Overweight (BMI 25.0-29.9) Nonsmoker Anxiety disorder, unspecified BMI 27.0-27.9,adult Your Care Team Attending Physician - Cory Story MD Primary Care Physician - Cory Story MD This Is Your Medications List duloxetine (Cymbalta 30 mg oral delayed release capsule) lorazepam (Ativan 0.5 mg Tab) omeprazole (omeprazole 40 mg Cap-DR) phentermine (Adipex-P 37.5 mg Tab) Procedures Performed ESWL - Extracorporeal shockwave lithotripsy for renal calculus (2013), History of ankle surgery, Hysterectomy. Discharge Vitals Temperature (Tympanic) 36.7 ???C Respiratory Rate 18 Blood Pressure 116/74 Height 161 cm Height 63 in Weight 70.2 kg Weight 154.764 lb BMI 27.08 What to do next Scheduled Follow-Up Appointments Sunday 8:15 AM EDT With: Cory Story MD Where: [address] [address]- Medications What How Much When Instructions Changed duloxetine (Cymbalta 30 mg oral delayed release capsule) 1 Capsules By Mouth 2 times a day Pickup at [facility] #[id number] Unchanged lorazepam (Ativan 0.5 mg Tab) 2 Tablets By Mouth 3 times a day as needed for for anxiety Pickup at [facility] #[id number] Unchanged omeprazole (omeprazole 40 mg Cap-DR) 1 Capsules By Mouth Every day Pickup at [facility] #[id number] Unchanged phentermine (Adipex-P 37.5 mg Tab) 1 Tablets By Mouth Every day BMI of 28 Pickup at [facility] #[id number] [id number] [address], [place] [id number] [phone] Allergies Levaquin (Unknown) Reglan (Unknown) Problems Ongoing - Any problem that you are currently receiving treatment for. Allergic rhinitis Asymptomatic microscopic hematuria Bereavement BMI 27.0-27.9,adult BMI 28.0-28.9,adult COVID-19 Excessive dietary caloric intake Fibromyalgia GERD (gastroesophageal reflux disease) HTN (hypertension) Kidney stone Kidney stone on left side Lupus (systemic lupus erythematosus) Nocturia Nonsmoker Overweight (BMI 25.0-29.9) Ureteral stone Viral infection of skin Weak urine stream Patient Survey You may receive a survey via text or e-mail asking about your office visit. Please share your experience with us by completing your survey. We appreciate your feedback and thank you for choosing us for your care. [facility] Family Medicine Office/Clini c Noteon 03-03-2024 Family Medicine Office/Clinic Note Family Medicine Office/Clinic Note Chief Complaint Weight Managment Difficulty managing weight and anxiety issues. HPI Staff Miriam is a 48 year old female presenting for one month follow up weight Weight management Sleeping well:Yes, 6-8 hours Chest pain:No Tremors:No Headaches:No Heart fluttering:No Blurred Vision:No Starting Weight: 184.58 Weight last visit: 162.04 Weight this visit: 154.76 questions/concerns: no History of Present Illness The patient is a 49-year-old female presenting with concerns regarding her weight management and anxiety. She has been consistently working towards weight loss and reports feeling much better as a result. Her Body Mass Index (BMI) has decreased to below 27, and her goal is to reach a BMI in the 25 range to further reduce health risks, as advised. The patient is motivated to lose an additional ten pounds. She is currently using Adipex to aid her weight loss and mentions obtaining it from local pharmacies, including [facility]. Historically, her BMI has been above 28 or 29 and has reached into the 30s in the past. She is comfortable with targeting a weight goal of 140 pounds, which aligns with achieving a BMI in the healthy range. Additionally, the patient reports experiencing anxiety, characterized by waking in the middle of the night and having difficulty returning to sleep, particularly around holiday seasons. She attributes some of the nighttime restlessness to recent stressors. Currently, she is prescribed duloxetine, taking 20 mg twice daily, which she will increase to 30 mg twice daily to better manage her symptoms. Her use of Adipex is noted not to coincide with her anxiety episodes, as she adjusts the timing based on her work schedule. She has Ativan available but uses it infrequently. Review of Systems PHQ Score Initial Depression Screen Score: 3 SCORE Detailed Depression Screen Score: 14 Total Depression Screen Score: 17 Physical Exam Vitals & Measurements T: 36.7 ???C(Tympanic) RR: 18 BP: 116/74 HT: 63 in HT: 161 cm WT: 70.2 kg WT: 154.764 lb BMI: 27.08 General: alert, no acute distress ENMT: oral mucosa moist Cardiovascular: Regular rate and rhythm, normal peripheral perfusion Respiratory: Lungs clear to auscultation, respirations non labored Extremities: no deformity, no trauma Neurological: oriented x 4, level of consciousness appropriate for age, CN II-XII intact, motor strength equal & normal bilaterally, speech normal Abdomen: Soft, Non-tender, Non-distended, + Bowel sounds Assessment/Plan 1. Excessive dietary caloric intake (R63.2: Polyphagia) The patient should continue to monitor caloric intake along with weight management efforts. Continued follow-up to assess dietary habits as part of the weight management strategy. 2. Overweight (BMI 25.0-29.9) (E66.3: Overweight) Continue lifestyle modifications and pharmacotherapy with Adipex to achieve a healthy BMI. Plan to reassess in three months and consider any further interventions based on progress. 3. Nonsmoker (Z78.9: Other specified health status) The patient maintains a nonsmoking status, which is beneficial for her overall health and weight management. Regular follow-up to include assessment of lifestyle choices impacting health. 4. Anxiety disorder, unspecified (F41.9) The patient's duloxetine dose is increased to 30 mg twice daily to improve anxiety symptoms. She has Ativan available for infrequent use, as needed, to manage acute anxiety episodes. 5. BMI 27.0-27.9,adult (Z68.27: Body mass index [BMI] 27.0-27.9, adult) The patient is encouraged to continue her progress with weight management, with a target to achieve a BMI in the 25s range. Adipex is continued with adjustments in pharmacies as required, and a follow-up is advised in three months to monitor progress and adjust treatment as needed. Orders: duloxetine, 30 mg = 1 cap(s), Oral, BID, # 180 cap(s), Refills(s) 0, Pharmacy: [facility] #[id number], 161, cm, 03/03/24 9:15:00 EST, Height/Length Dosing, 70.2, kg, 03/03/24 9:15:00 EST, Weight Dosing lorazepam, 1 mg = 2 tab(s), Oral, TID, PRN for anxiety, # 30 tab(s), Refills(s) 0, Pharmacy: [facility] #[id number], 161, cm, 03/03/24 9:15:00 EST, Height/Length Dosing, 70.2, kg, 03/03/24 9:15:00 EST, Weight Dosing omeprazole, 40 mg = 1 cap(s), Oral, Daily, # 90 cap(s), Refills(s) 1, Pharmacy: [facility] #[id number], 161, cm, 03/03/24 9:15:00 EST, Height/Length Dosing, 70.2, kg, 03/03/24 9:15:00 EST, Weight Dosing phentermine, 37.5 mg = 1 tab(s), Oral, Daily, BMI of 28, # 30 tab(s), Refills(s) 0, Pharmacy: [facility] #[id number], 161, cm, 03/03/24 9:15:00 EST, Height/Length Dosing, 70.2, kg, 03/03/24 9:15:00 EST, Weight Dosing 49-year-old female with a history of being overweight and excessive dietary caloric intake, presenting with ongoing weight management and anxiety issues. The patient has made significant improvements in weight loss, achieving a BMI below 27, yet aims for (more content not included)... Normal [facility] Comment on above: Result Comment: Elec tronically Signed By: Cory Story MD\.br\Date and Time Signed: 03/03/24 09:31 EST C Urineon 01-12-2024 Bacteria identified Cx Nom (U) Microbiology PROCEDURE: Urine Culture [R1] SOURCE: U Random BODY SITE: COLLECTED DATE/TIME: 01/10/2024 16:00 EST RECEIVED DATE/TIME: 01/10/2024 18:10 EST START DATE/TIME: 01/10/2024 18:11 EST FREE TEXT SOURCE: Jez PASTRANA, Cory E. Cory Story MD FINAL REPORTS Final Report [] Verified Date/Time: 01/12/2024 09:05 EST >100,000 cfu/ml Proteus mirabilis SUSCEPTIBILITY RESULTS LEGEND: S=Susceptible, N/R=Not Reported, Blank=Data not available, or drug not advisable or tested, I=Intermediate, ESBL=Extended spectrum beta-lactamase, R=Resistant, TFG=Thymidine-depende nt strain, SALOME=Beta-lactamase positive, ROMY=mcg/m;(mg/L), S*=Predicted susceptible interp, R*=Predicted resistant interp Promir Antibiotic ROMY Dilutn ROMY Interp Ampicillin <=8 S Ampicillin/ <=8/4 S Sulbactam Aztreonam <=4 S Cefazolin <=2 S Cefepime <=2 S Ceftazidime <=1 S Ceftazidime/ <=8 S Avibactam Ceftriaxone <=1 S Cefuroxime <=4 S Ciprofloxacin <=0.25 S Ertapenem <=0.5 S Gentamicin <=2 S Levofloxacin <=0.5 S Meropenem <=1 S Nitrofurantoin >64 R Piperacillin/ <=8 S Tazobactam Tetracycline >8 R Tobramycin <=2 S Trimethoprim/ <=2/38 S Sulfa Performing Locations R1: This test was performed at: [facility], [address] [place] [address], [id number] , [place], Normal [facility] Comment on above: Performed By: #### [id number] #### [facility] [address] [place] [id number] Family Medicine Office/Clini c Noteon 01-10-2024 Family Medicine Office/Clinic Note Family Medicine Office/Clinic Note Chief Complaint Hematuria HPI Staff Pt presents today due to hematuria. States it has been ongoing for months. Did start having BL flank pain yesterday. Does have Hx of Kidney Stones. Does need refill of addipex. History of Present Illness Here for UTI symptoms. Have had it for a month. Please see staff HPI. Review of Systems PHQ Score Initial Depression Screen Score: 0 SCORE Physical Exam Vitals & Measurements T: 36.8 ???C(Oral) HR: 76(Peripheral) RR: 18 BP: 110/68 SpO2: 98% HT: 63 in HT: 161 cm WT: 73.5 kg WT: 162.04 lb BMI: 28.36 General: alert, no acute distress ENMT: oral mucosa moist, Cardiovascular: regular rate and rhythm, normal peripheral perfusion Respiratory: Lungs CTA, respirations non labored Extremities: no deformity, no trauma Neurological: oriented x 4, LOC appropriate for age, CN II-XII intact, motor strength equal & normal bilaterally, speech normal Abdomen: Soft, Nontender, Non-distended, + BS Assessment/Plan 1. Hematuria (R31.9: Hematuria, unspecified) U/A to culture and will treat. Follow culture Ordered: Urine Culture Urnls Dip Stick Auto w/o Microscopy POC [id number] 2. Excessive dietary caloric intake (R63.2: Polyphagia) OK to refill adipex. Loosing weight. No other issues. Orders: cephalexin, 500 mg = 1 cap(s), Oral, q12hr, X 7 day(s), # 14 cap(s), Refills(s) 0, Pharmacy: [facility] #[id number], 161, cm, 01/10/24 15:51:00 EST, Height/Length Dosing, 73.5, kg, 01/10/24 15:51:00 EST, Weight Dosing phentermine, 37.5 mg = 1 tab(s), Oral, Daily, BMI of 28, # 30 tab(s), Refills(s) 0, Pharmacy: [facility] #[id number], 161, cm, 01/10/24 15:51:00 EST, Height/Length Dosing, 73.5, kg, 01/10/24 15:51:00 EST, Weight Dosing Follow-up No qualifying data available Problem List/Past Medical History Ongoing Allergic rhinitis Asymptomatic microscopic hematuria Bereavement BMI 28.0-28.9,adult COVID-19 Excessive dietary caloric intake Fibromyalgia GERD (gastroesophageal reflux disease) HTN (hypertension) Kidney stone Kidney stone on left side Lupus (systemic lupus erythematosus) Nocturia Nonsmoker Overweight (BMI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 regularly and spend time outdoors. ? Eat a healthy diet that includes plenty of vegetables, fruits, whole grains, low-fat dairy products, and lean protein. ? Do not eat a lot of foods that are high in fat, added sugar, or salt (sodium). ? Drink plenty of water. ? Avoid alcohol. Alcohol can increase anxiety. ? Avoid caffeine and certain xdpk-udj-drezoax cold medicines. These may make you feel worse. Ask your pharmacist which medicines to loi (more content not included)... Normal [facility] KULWINDER w/Reflex if POSon 2023 Nuclear Ab Ql (S) Negative Invalid Interpretation Code Negative [facility] Comment on above: Result Comment: Perf ormed at: CB [facility] [address] [id number] PhD Iain Nick Performed By: #### [id number] ####[facility] [id number] [place] [address] Ambulatory Visit Summaryon 0 05-07-2023 Ambulatory Visit Summary MIRIAM BRYAN :1975 Visit Date:05/07/2023 Ambulatory Visit Instructions Your Diagnosis Excessive dietary caloric intake BMI 39.0-39.9,adult Class 1 obesity due to excess calories in adult Former pipe smoker Primary hypertension Systemic lupus erythematosus, unspecified SLE type, unspecified organ involvement status Your Care Team Attending Physician - Cory Story MD Primary Care Physician - Cory Story MD This Is Your Medications List buPROPion (Wellbutrin XL 150 mg/24 hours Tab-ER) phentermine (Adipex-P 37.5 mg oral capsule) Contact prescribing physician if questions or concerns omeprazole (omeprazole 40 mg Cap-DR) Procedures Performed ESWL - Extracorporeal shockwave lithotripsy for renal calculus (2013), History of ankle surgery, Hysterectomy. 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 - DOwn 3 lbs. - Feels like she is stress eating. - Needs to have labs to see if she is Positive for Lupus. - Hx of Rash under hear eyes. Review of Systems PHQ Score Initial Depression Screen Score: 0 SCORE Physical Exam Vitals & Measurements T: 36.8 ?C(Oral) HR: 76(Peripheral) RR: 16 BP: 124/82 SpO2: 100% HT: 63 in HT: 161 cm WT: 82.7 kg WT: 181.94 lb BMI: 31.9 General: alert, no acute distress ENMT: oral mucosa moist, Cardiovascular: regular rate and rhythm, normal peripheral perfusion Respiratory: Lungs CTA, respirations non labored Extremities: no deformity, no trauma Neurological: oriented x 4, LOC appropriate for age, CN II-XII intact, motor strength equal & normal bilaterally, speech normal Abdomen: Soft, Nontender, Non-distended, + BS Assessment/Plan 1. Excessive dietary caloric intake (R63.2: Polyphagia) - Lost 3 pounds. - Will continue on the adipex at this time. - Follow up in 1 month - Wellbutrin added for stress eating. Ordered: KULWINDER w/Reflex if POS 2. BMI 39.0-39.9,adult (Z68.39: Body mass index [BMI] 39.0-39.9, adult) - BMI education given Ordered: KULWINDER w/Reflex if POS 3. Class 1 obesity due to excess calories in adult (E66.09: Other obesity due to excess calories) - Diet and exercise advised Ordered: KULWINDER w/Reflex if POS 4. Former pipe smoker (Z87.891: Personal history of nicotine dependence) - Please continue to not smoke Ordered: KULWINDER w/Reflex if POS 5. Primary hypertension (I10: Essential (primary) hypertension) - At goal with adipex. - Will continue to monitor Ordered: KULWINDER w/Reflex if POS 6. Systemic lupus erythematosus, unspecified SLE type, unspecified organ involvement status (M32.9: Systemic lupus erythematosus, unspecified) - Will check an KULWINDER and will follow up. Ordered: KULWINDER w/Reflex if POS Orders: buPROPion, 150 mg = 1 tab(s), Oral, q24hr, # 90 tab(s), Refills(s) 0, Pharmacy: [facility] #[id number], 161, cm, 05/07/23 7:21:00 EDT, Height/Length Dosing, 82.7, kg, 05/07/23 7:21:00 EDT, Weight Dosing phentermine, 37.5 mg = 1 cap(s), Oral, Daily, # 30 cap(s), Refills(s) 0, Pharmacy: [facility] #[id number], 161, cm, 05/07/23 7:21:00 EDT, Height/Length Dosing, 82.7, kg, 05/07/23 7:21:00 EDT, Weight Dosing Follow-up No qualifying data available Patient Education Hypertension, Adult Problem List/Past Medical History Ongoing Allergic rhinitis Asymptomatic microscopic hematuria COVID-19 Excessive dietary caloric intake Fibromyalgia GERD (gastroesophageal reflux disease) HTN (hypertension) Kidney stone Kidney stone on left side Lupus (systemic lupus erythematosus) Nocturia Ureteral stone Weak urine stream Historical No qualifying data Procedure/Surgical History ESWL - Extracorporeal shockwave lithotripsy for renal calculus (2013), History of ankle surgery, Hysterectomy. Medications Adipex-P 37.5 mg oral capsule, 37.5 mg= 1 cap(s), Oral, Daily omeprazole 40 mg Cap-DR, 40 mg= 1 cap(s), Oral, Daily, 1 refills Wellbutrin XL 150 mg/24 hours Tab-ER, 150 mg= 1 tab(s), Oral, q24hr Allergies Levaquin (Unknown) Reglan (Unknown) penicillins (Unknown) Social History Tobacco Former smoker, quit more than 30 days ago Tobacco Use:. Cigarettes, Household tobacco concerns: No., 05/07/2023 Family History Emphysema: Mother. Primary malignant neoplasm of colon: Father. Immunizations Vaccine Date Status Comments SARS-CoV-2 (COVID-19) Ad26 vaccine 07/16/2020 Recorded 2023-04-02: TPV40 SARS-CoV-2 mRNA (tozinameran 5y-y) vac 2020 Recorded 2 vaccines Normal [facility] Comment on above: Result Comment: Elec tronically Signed By: Jez PASTRANA, Cory Hansen.br\Date and Time Signed: 05/07/23 07:36 EDT Patient Educationon 03-11-20 24 Patient Education Cardiovascular Hypertension, Adult High blood pressure (hypertension) is when the force of blood pumping through the arteries is too strong. The arteries are the blood vessels that carry blood from the heart throughout the body. Hypertension forces the heart to work harder to pump blood and may cause arteries to become narrow or stiff. Untreated or uncontrolled hypertension can lead to a heart attack, heart failure, a stroke, kidney disease, and other problems. A blood pressure reading consists of a higher number over a lower number. Ideally, your blood pressure should be below 120/80. The first ( top ) number is called the systolic pressure. It is a measure of the pressure in your arteries as your heart beats. The second ( bottom ) number is called the diastolic pressure. It is a measure of the pressure in your arteries as the heart relaxes. What are the causes? The exact cause of this condition is not known. There are some conditions that result in high blood pressure. What increases the risk? Certain factors may make you more likely to develop high blood pressure. Some of these risk factors are under your control, including: ? Smoking. ? Not getting enough exercise or physical activity. ? Being overweight. ? Having too much fat, sugar, calories, or salt (sodium) in your diet. ? Drinking too much alcohol. Other risk factors include: ? Having a personal history of heart disease, diabetes, high cholesterol, or kidney disease. ? Stress. ? Having a family history of high blood pressure and high cholesterol. ? Having obstructive sleep apnea. ? Age. The risk increases with age. What are the signs or symptoms? High blood pressure may not cause symptoms. Very high blood pressure (hypertensive crisis) may cause: ? Headache. ? Fast or irregular heartbeats (palpitations). ? Shortness of breath. ? Nosebleed. ? Nausea and vomiting. ? Vision changes. ? Severe chest pain, dizziness, and seizures. How is this diagnosed? This condition is diagnosed by measuring your blood pressure while you are seated, with your arm resting on a flat surface, your legs uncrossed, and your feet flat on the floor. The cuff of the blood pressure monitor will be placed directly against the skin of your upper arm at the level of your heart. Blood pressure should be measured at least twice using the same arm. Certain conditions can cause a difference in blood pressure between your right and left arms. If you have a high blood pressure reading during one visit or you have normal blood pressure with other risk factors, you may be asked to: ? Return on a different day to have your blood pressure checked again. ? Monitor your blood pressure at home for 1 week or longer. If you are diagnosed with hypertension, you may have other blood or imaging tests to help your health care provider understand your overall risk for other conditions. How is this treated? This condition is treated by making healthy lifestyle changes, such as eating healthy foods, exercising more, and reducing your alcohol intake. You may be referred for counseling on a healthy diet and physical activity. Your health care provider may prescribe medicine if lifestyle changes are not enough to get your blood pressure under control and if: ? Your systolic blood pressure is above 130. ? Your diastolic blood pressure is above 80. Your personal target blood pressure may vary depending on your medical conditions, your age, and other factors. Follow these instructions at home: Eating and drinking ? Eat a diet that is high in fiber and potassium, and low in sodium, added sugar, and fat. An example of this eating plan is called the DASH diet. DASH stands for Dietary Approaches to Stop Hypertension. To eat this way: ? Eat plenty of fresh fruits and vegetables. Try to fill one half of your plate at each meal with fruits and vegetables. ? Eat whole grains, such as whole-wheat pasta, brown rice, or whole-grain bread. Fill about one fourth of your plate with whole grains. ? Eat or drink low-fat dairy products, such as skim milk or low-fat yogurt. ? Avoid fatty cuts of meat, processed or cured meats, and poultry with skin. Fill about one fourth of your plate with lean proteins, such as fish, chicken without skin, beans, eggs, or tofu. ? Avoid pre-made and processed foods. These tend to be higher in sodium, added sugar, and fat. ? Reduce your daily sodium intake. Many people with hypertension should eat less than 1,500 mg of sodium a day. ? Do not drink alcohol if: ? Your health care provider tells you not to drink. ? You are , may be , or are planning to become . ? If you drink alcohol: ? Limit how much you have to: ? 0?1 drink a day for women. ? 0?2 drinks a day for men. ? Know how much alcohol is in your drink. In the [place] one drink equals one 12 oz bottle of beer (355 mL), one 5 oz glass of wine (148 mL), or one 1? oz glass (more content not included)... Normal [facility] Family Medicine Office/Clini c Noteon 04-05-2023 Family Medicine Office/Clinic Note HPI Staff Miriam is a 48 year old female presenting for follow up GERD XIMENA added PPI, if no improvement GI for scope couldn't get the esomeprazole so buying OTC and not much change Here for follow up on GERD. Melena? no Dysphagia? yes sometimes has to manipulate head to be able to swallow not constant Weight loss? no Persistent vomiting? no Have you ever had an EGD? no Refill needed?: no flu: refused questions/concerns: hopes to get back on adipex, couldn't get last time due to kidney stones History of Present Illness See staff HPI. Review of Systems PHQ Score Initial Depression Screen Score: 0 SCORE Physical Exam Vitals & Measurements T: 36.8 ?C(Oral) HR: 76(Peripheral) RR: 14 BP: 124/82 SpO2: 98% HT: 63 in HT: 161 cm WT: 83.9 kg WT: 184.58 lb BMI: 32.37 General: alert, no acute distress ENMT: oral mucosa moist, Cardiovascular: regular rate and rhythm, normal peripheral perfusion Respiratory: Lungs CTA, respirations non labored Extremities: no deformity, no trauma Neurological: oriented x 4, LOC appropriate for age, CN II-XII intact, motor strength equal & normal bilaterally, speech normal Abdomen: Soft, Nontender, Non-distended, + BS Assessment/Plan 1. GERD (gastroesophageal reflux disease) (K21.9: Gastro-esophageal reflux disease without esophagitis) - Will order omeprazole - Please take on an empty stomach 2. Lupus (systemic lupus erythematosus) (M32.9: Systemic lupus erythematosus, unspecified) - Pt states she tested negative last time - She would like a retest at next visit 3. Excessive dietary caloric intake (R63.2: Polyphagia) - Pt has done really well loosing 60 pounds. - Pt would like to try adipex to help loose more weight 4. BMI 32.0-32.9,adult (Z68.32: Body mass index [BMI] 32.0-32.9, adult) - BMI education given 5. Class 1 obesity due to excess calories in adult (E66.09: Other obesity due to excess calories) - Diet and exercise advised - Exercise is at the rec - Low carb diet. 6. Former smoker (Z87.891: Personal history of nicotine dependence) - Please continue to not smoke. Orders: omeprazole, 40 mg = 1 cap(s), Oral, Daily, # 90 cap(s), Refills(s) 1, Pharmacy: [facility] #[id number], 161, cm, 04/05/23 7:36:00 EST, Height/Length Dosing, 83.9, kg, 04/05/23 7:36:00 EST, Weight Dosing phentermine, 37.5 mg = 1 cap(s), Oral, Daily, # 30 cap(s), Refills(s) 0, Pharmacy: [facility] #[id number], 161, cm, 04/05/23 7:36:00 EST, Height/Length Dosing, 83.9, kg, 04/05/23 7:36:00 EST, Weight Dosing Follow-up No qualifying data available Patient Education BMI for Adults Problem List/Past Medical History Ongoing Allergic rhinitis Asymptomatic microscopic hematuria COVID-19 Excessive dietary caloric intake Fibromyalgia GERD (gastroesophageal reflux disease) HTN (hypertension) Kidney stone Kidney stone on left side Lupus (systemic lupus erythematosus) Nocturia Ureteral stone Weak urine stream Historical No qualifying data Procedure/Surgical History ESWL - Extracorporeal shockwave lithotripsy for renal calculus (2013), History of ankle surgery, Hysterectomy. Medications Adipex-P 37.5 mg oral capsule, 37.5 mg= 1 cap(s), Oral, Daily omeprazole 40 mg Cap-DR, 40 mg= 1 cap(s), Oral, Daily, 1 refills Allergies Levaquin (Unknown) Reglan (Unknown) penicillins (Unknown) Social History Tobacco Former smoker, quit more than 30 days ago Tobacco Use:. Cigarettes, Household tobacco concerns: No., 04/05/2023 Family History Emphysema: Mother. Primary malignant neoplasm of colon: Father. Immunizations Vaccine Date Status Comments SARS-CoV-2 (COVID-19) Ad26 vaccine 07/16/2020 Recorded 2023-04-02: TPV40 SARS-CoV-2 mRNA (tozinameran 5y-11y) vac 2020 Recorded 2 vaccines Normal [facility] Comment on above: Result Comment: Elec tronically Signed By: Jez PASTRANA, Cory Hansen.br\Date and Time Signed: 04/05/23 07:55 EST Patient Educationon 04-05-19 Patient Education Nutrition BMI for Adults What is BMI? Body mass index (BMI) is a number that is calculated from a person's weight and height. BMI can help estimate how much of a person's weight is composed of fat. BMI does not measure body fat directly. Rather, it is an alternative to procedures that directly measure body fat, which can be difficult and expensive. BMI can help identify people who may be at higher risk for certain medical problems. What are BMI measurements used for? BMI is used as a screening tool to identify possible weight problems. It helps determine whether a person is obese, overweight, a healthy weight, or underweight. BMI is useful for: ? Identifying a weight problem that may be related to a medical condition or may increase the risk for medical problems. ? Promoting changes, such as changes in diet and exercise, to help reach a healthy weight. BMI screening can be repeated to see if these changes are working. How is BMI calculated? BMI involves measuring your weight in relation to your height. Both height and weight are measured, and the BMI is calculated from those numbers. This can be done either in [place] ([place] or metric measurements. Note that charts and online BMI calculators are available to help you find your BMI quickly and easily without having to do these calculations yourself. To calculate your BMI in [place] measurements: 1. Measure your weight in pounds (lb). 2. Multiply the number of pounds by 703. ? For example, for a person who weighs 180 lb, multiply that number by 703, which equals 126,540. 3. Measure your height in inches. Then multiply that number by itself to get a measurement called inches squared. ? For example, for a person who is 70 inches tall, the inches squared measurement is 70 inches x 70 inches, which equals 4,900 inches squared. 4. Divide the total from step 2 (number of lb x 703) by the total from step 3 (inches squared): 126,540 ? 4,900 = 25.8. This is your BMI. To calculate your BMI in metric measurements: 1. Measure your weight in kilograms (kg). 2. Measure your height in meters (m). Then multiply that number by itself to get a measurement called meters squared. ? For example, for a person who is 1.75 m tall, the meters squared measurement is 1.75 m x 1.75 m, which is equal to 3.1 meters squared. 3. Divide the number of kilograms (your weight) by the meters squared number. In this example: 70 ? 3.1 = 22.6. This is your BMI. What do the results mean? BMI charts are used to identify whether you are underweight, normal weight, overweight, or obese. The following guidelines will be used: ? Underweight: BMI less than 18.5. ? Normal weight: BMI between 18.5 and 24.9. ? Overweight: BMI between 25 and 29.9. ? Obese: BMI of 30 or above. Keep these notes in mind: ? Weight includes both fat and muscle, so someone with a muscular build, such as an athlete, may have a BMI that is higher than 24.9. In cases like these, BMI is not an accurate measure of body fat. ? To determine if excess body fat is the cause of a BMI of 25 or higher, further assessments may need to be done by a health care provider. ? BMI is usually interpreted in the same way for men and women. Where to find more information For more information about BMI, including tools to quickly calculate your BMI, go to these websites: ? Centers for Disease Control and Prevention: www.cdc.gov ? [place] [employer]: www.heart.org ? National Heart, Lung, and Blood [place]: www.nhlbi.nih.gov Summary ? Body mass index (BMI) is a number that is calculated from a person's weight and height. ? BMI may help estimate how much of a person's weight is composed of fat. BMI can help identify those who may be at higher risk for certain medical problems. ? BMI can be measured using [place]ian measurements or metric measurements. ? BMI charts are used to identify whether you are underweight, normal weight, overweight, or obese. This information is not intended to replace advice given to you by your health care provider. Make sure you discuss any questions you have with your health care provider. Document Revised: 11/05/2019 Document Reviewed: 09/12/2019 [employer] Patient Education ? 2022 [employer]. Normal [facility] Pre-Certification Formon Pre-Certification Form [id number] Normal [facility] PAP ACOG PANEL 2: 30 to 65on 11-03-2021 . . Normal [facility] Comment on above: Result Comment: Perf ormed at: WB Performed By: #### [id number] #### [facility] [address] [address] [address] Norah Campbell Age Gdln ACOG Testing 30-65 [facility] Comment on above: Performed By: #### [id number] #### [facility] [address] [place] [address] Dr. Norah Campbell DIAGNOSIS: Comment [facility] Comment on above: Result Comment: NEGA TIVE FOR INTRAEPITHELIAL LESION OR MALIGNANCY. Performed at: WB Performed By: #### [id number] #### [facility] [address] [place] [address] Dr. Norah Campbell HPV Aptima Negative Normal Negative [facility] Comment on above: Result Comment: This nucleic acid amplification test detects fourteen high-risk HPV types (16,18,31,33,35,39,45,51,52,56,58,59,66,68) without differentiation. Performed at: =G Performed By: #### [id number] #### [facility] [address] [place] [address] Dr. Norah Campbell Methodology: Comment Normal [facility] Comment on above: Result Comment: This liquid based ThinPrep(R) pap test was screened with the use of an image guided system. Performed at: WB Performed By: #### [id number] #### [facility] [address] [place] [address] Dr. Norah Campbell Note: Comment Normal [facility] Comment on above: Result Comment: The Pap smear is a screening test designed to aid in the detection of premalignant and malignant conditions of the uterine cervix. It is not a diagnostic procedure and should not be used as the sole means of detecting cervical cancer. Both false-positive and false-negative reports do occur. . Performed at: WB Performed By: #### [id number] #### [facility] [address] [place] [address] Dr. Norah Campbell Performed by: Comment Normal [facility] Comment on above: Result Comment: Tigist Keyes, Honey Producer (ASCP) Performed at: WB Performed By: #### [id number] #### [facility] [address] [place] [address] Dr. Norah Campblel Specimen adequacy: Comment Normal [facility] Comment on above: Result Comment: Sati sfactory for evaluation. Performed at: WB Performed By: #### [id number] #### [facility] [address] [place] [address] Dr. Norah Campbell XR KUB 1 VIEWon [...] by: STEFAN MARIA Date: 2021-11-02 11:19 Normal [facility] CBC AUTO DIFFon 10-26-2021 BASO # 0.0 103/ul Normal 0.0-0.1 [facility] Comment on above: Performed By: #### C BC #### [facility] [address] [place] [address] Dr. Norah Campbell Basophils/100 WBC (Bld) 0.3 % Normal 0.2-2.0 [facility] Comment on above: Performed By: #### C BC #### [facility] [address] [place] [address] Dr. Norah Campbell EO # 0.6 103/ul Normal 0.0-0.7 [facility] Comment on above: Performed By: #### C BC #### [facility] [address] [place] [address] Dr. Norah Campbell Eosinophils/100 WBC (Bld) 5.9 % Normal 0.9-7.0 [facility] Comment on above: Performed By: #### C BC #### [facility] [address] [place] [address] Dr. Norah Campbell Erythrocyte distribution width (RBC) [Ratio] 14.6 % Normal 11.0-15.0 [facility] Comment on above: Performed By: #### C BC #### [facility] [address] [place] [address] Dr. Norah Campbell Hematocrit (Bld) [Volume fraction] 38.7 % Normal 36.0-48.0 [facility] Comment on above: Performed By: #### C BC #### [facility] [address] [place] [address] Dr. Norah Campbell Hemoglobin (Bld) [Mass/Vol] 12.4 g/dL Normal 12.0-16.0 [facility] Comment on above: Performed By: #### C BC #### [facility] [address] [place] [address] Dr. Norah Campbell IG # 0.03 10e3/ul Normal 0.00-0.03 [facility] Comment on above: Performed By: #### C BC #### [facility] [address] [place] [address] Dr. Norah Campbell IG % 0.3 % Normal 0.0-0.5 [facility] Comment on above: Performed By: #### C BC #### [facility] [address] [place] [address] Dr. Norah Campbell LYMPH # 3.5 103/ul Normal 1.2-3.8 [facility] Comment on above: Performed By: #### C BC #### [facility] [address] [place] [address] Dr. Norah Campbell Lymphocytes/100 WBC (Bld) 34.3 % Normal 20.5-60.0 [facility] Comment on above: Performed By: #### C BC #### [facility] [address] [place] [address] Dr. Norah Campbell MANUAL DIFF REQ NO Normal [place] Comment on above: Performed By: #### C BC #### [facility] [address] [place] [address] Dr. Norah Campbell MCH (RBC) [Entitic mass] 29.5 pg Normal 26.7-34.0 [facility] Comment on above: Performed By: #### C BC #### [facility] [address] [place] [address] Dr. Norah Campbell MCHC (RBC) [Mass/Vol] 32.0 g/dL Normal 29.9-35.2 [facility] Comment on above: Performed By: #### C BC #### [facility] [address] [place] [address] Dr. Norah Campbell MCV (RBC) [Entitic vol] 91.9 fL Normal 81.0-99.0 [facility] Comment on above: Performed By: #### C BC #### [facility] [address] [place] [address] Dr. Norah Campbell MONO # 0.8 103/ul Normal 0.3-0.8 [facility] Comment on above: Performed By: #### C BC #### [facility] [address] [place] [address] Dr. Norah Campbell Monocytes/100 WBC (Bld) 8.2 % Normal 1.7-12.0 [facility] Comment on above: Performed By: #### C BC #### [facility] [address] [place] [address] Dr. Norah Campbell NEUT # 5.2 103/ul Normal 1.4-6.5 [facility] Comment on above: Performed By: #### C BC #### [facility] [address] [place] [address] Dr. Norah Campbell Neutrophils/100 WBC (Bld) 51.0 % Normal 43.0-75.0 [facility] Comment on above: Performed By: #### C BC #### [facility] [address], [place] [address] Dr. Norah Campbell Platelet mean volume (Bld) [Entitic vol] 9.8 fL Normal 9.5-13.5 [facility] Comment on above: Performed By: #### C BC #### [facility] [address], [place] [address] Dr. Norah Campbell PLT 337 103/ul Normal 150-450 [facility] Comment on above: Performed By: #### C BC #### [facility] [address], [place] [address] Dr. Norah Campbell RBC 4.21 106/ul Normal 4.20-5.40 [facility] Comment on above: Performed By: #### C BC #### [facility] [id number] Norah Campbell WBC 10.3 103/ul Normal 4.0-11.0 [facility] Comment on above: Performed By: #### C BC #### [facility] [id number] Norah Campbell CULTURE URINEon 10-26-2021 CULTURE URINE Isolate 1 Proteus mirabilis 100,000 cfu/mL of ORGANISM 1 Proteus mirabilis ANTIBIOTIC M.I.C RX STATUS Ampicillin <=2 S F Ampicillin/Sulbactam <=2 S F Piperacillin/Tazobact am <=4 S F Cefazolin <=4 S F Ceftazidime <=1 S F Ceftriaxone <=1 S F Ertapenem <=0.5 S F Imipenem 2 S F Amikacin <=2 S F Gentamicin <=1 S F Tobramycin <=1 S F Ciprofloxacin <=0.25 S F Levofloxacin <=0.12 S F Nitrofurantoin 128 R F Trimethoprim/Sulfamet hoxazole <=20 S F Normal [facility] Comment on above: Performed By: #### U RCX ####[facility] [address] [place] [address]Dr. Norah Campbell Covid-19 PCR (CVDTB)on 09-28 SARS-CoV-2 (COVID-19) RNA DAVID+probe Ql (Unsp spec) Not detected Normal NOT DETECTED [facility] Comment on above: Result Comment: This test is not yet approved or cleared by the [place] FDA. When there are no FDA-approved or cleared tests available, and other criteria are met, FDA can make tests available under an emergency access mechanism called an Emergency Use Authorization (EUA). The EUA for this test is supported by the Accounting Methods Analyst of Health and Human Service's (HHS's) declaration [...] consistent with SARS-CoV-2. Performed By: #### C VDTB ####[facility] [address] [place] [address]Dr. Norah Campbell PROF CHEM 8 (BAS METB)on Anion gap [Moles/Vol] 11.4 mmol/L Normal [facility] Comment on above: Performed By: #### B MP #### [facility] [address] [place] [address] Dr. Norah Campbell Calcium [Mass/Vol] 9.4 mg/dL Normal 8.5-10.1 [facility] Comment on above: Performed By: #### B MP #### [facility] [address] [place] [address] [address] Norah Campbell Chloride [Moles/Vol] 104 mmol/L Normal 98-107 [facility] Comment on above: Performed By: #### B MP #### [facility] [address] [place] [address] Dr. Norah Campbell CO2 [Moles/Vol] 31.7 mmol/L Normal 21.0-32.0 [facility] Comment on above: Performed By: #### B MP #### [facility] [address] [address] [address] Norah Campbell Creatinine [Mass/Vol] 1.40 mg/dL Critically high 0.55-1.02 [facility] Comment on above: Performed By: #### B MP #### [facility] [address] [place] [address] [address] Norah Campbell EGFR-AF [place] 49 mL/min/1.73m2 Critically low >=60 [facility] Comment on above: Performed By: #### B MP #### [facility] [address] [place] [address] [address] Norah Campbell EGFR-NON AF [place] 40 mL/min/1.73m2 Critically low >=60 [facility] Comment on above: Performed By: #### B MP #### [facility] [address] [address] [address] Norah Campbell Glucose [Mass/Vol] 104 mg/dL Normal 74-106 [facility] Comment on above: Performed By: #### B MP #### [facility] [address] [address] [address] Norah Campbell Potassium [Moles/Vol] 4.1 mmol/L Normal 3.5-5.1 [facility] Comment on above: Performed By: #### B MP #### [facility] [address] [place] [address] [address] Norah Campbell Sodium [Moles/Vol] 143 mmol/L Normal 136-145 [facility] Comment on above: Performed By: #### B MP #### [facility] [address] [address] [address] Norah Campbell Urea nitrogen [Mass/Vol] 26.0 mg/dL Critically high 7.0-18.0 [facility] Comment on above: Performed By: #### B MP #### [facility] [address] [place] [address] [address] Norah Campbell Urea nitrogen/Creatini ne [Mass ratio] 18.6 mg/mg Normal [facility] Comment on above: Performed By: #### B MP #### [facility] [address] [place] [address] [address] Norah Campbell PROTIMEon 10-26-2021 INR Coag (PPP) [Relative time] 0.95 {INR} Normal [facility] Comment on above: Performed By: #### P T, PTT ####[facility] [address] [place] [address]DrLizzy Campbell INR GUIDELINES SEE BELOW Normal [facility] Comment on above: Result Comment: AKI RED INR: 2.0 - 3.0 CONDITIONS NOT LISTED BELOW 2.5 - 3.5 FOR PROSTHETIC HEART VALVE REPLACEMENT 2.5 - 3.5 RECURRENT THROMBOSIS Performed By: #### P T, PTT ####[facility] [address] [place] [address]Dr. Norah Campbell PT Coag (PPP) [Time] 10.3 s Normal 9.0-11.6 [facility] Comment on above: Performed By: #### P T, PTT ####[facility] [address] [place], [place] [address]DrLizzy Campbell PTTon 10-26-2021 aPTT Coag (Bld) [Time] 23.9 s Normal 22.3-36.2 [facility] Comment on above: Performed By: #### P T, PTT ####[facility] [address] [place] [address]Dr. Norah Campbell CBC AUTO DIFFon 10-23-2021 BASO # 0.0 103/ul Normal 0.0-0.1 [facility] Comment on above: Performed By: #### C BC ####[facility] [address] [place] [address]DrLizzy Campbell Basophils/100 WBC (Bld) 0.3 % Normal 0.2-2.0 [facility] Comment on above: Performed By: #### C BC ####[facility] [address] [place] [address]DrLizzy Campbell EO # 0.0 103/ul Normal 0.0-0.7 [facility] Comment on above: Performed By: #### C BC ####[facility] [address] [place] [id number]. Norah Campbell Eosinophils/100 WBC (Bld) 0.7 % Critically low 0.9-7.0 [facility] Comment on above: Performed By: #### C BC ####[facility] [address] [place] [address]Dr. Norah Campbell Erythrocyte distribution width (RBC) [Ratio] 14.2 % Normal 11.0-15.0 [facility] Comment on above: Performed By: #### C BC ####[facility] [address] [place], [place] [address]Dr. Norah Campbell Hematocrit (Bld) [Volume fraction] 39.8 % Normal 36.0-48.0 [facility] Comment on above: Performed By: #### C BC ####[facility] [address] [place], [place] [address]Dr. Norah Campbell Hemoglobin (Bld) [Mass/Vol] 12.6 g/dL Normal 12.0-16.0 [facility] Comment on above: Performed By: #### C BC ####[facility] [address] [place], [place] [address]Dr. Norah Campbell IG # 0.05 10e3/ul Critically high 0.00-0.03 [facility] Comment on above: Performed By: #### C BC ####[facility] [address] [place] [address]Dr. Norah Campbell IG % 0.9 % Critically high 0.0-0.5 [facility] Comment on above: Performed By: #### C BC ####[facility] [address] [place] [address]Dr. Norah Campbell LYMPH # 1.3 103/ul Normal 1.2-3.8 [facility] Comment on above: Performed By: #### C BC ####[facility] [address] [place], [place] [address]Dr. Norah Campbell Lymphocytes/100 WBC (Bld) 22.1 % Normal 20.5-60.0 [facility] Comment on above: Performed By: #### C BC ####[facility] [address] [place] [address]Dr. Norah Campbell MANUAL DIFF REQ NO Normal [place] Comment on above: Performed By: #### C BC ####[facility] [address] [place] [id number]. Norah Campbell MCH (RBC) [Entitic mass] 29.0 pg Normal 26.7-34.0 [facility] Comment on above: Performed By: #### C BC ####[facility] [address] [place], [place] [address]Dr. Norah Campbell MCHC (RBC) [Mass/Vol] 31.7 g/dL Normal 29.9-35.2 [facility] Comment on above: Performed By: #### C BC ####[facility] [address] [place], [place] [address]Dr. Norah Campbell MCV (RBC) [Entitic vol] 91.5 fL Normal 81.0-99.0 [facility] Comment on above: Performed By: #### C BC ####[facility] [address] [place], [place] [address]Dr. Norah Campbell MONO # 0.3 103/ul Normal 0.3-0.8 [facility] Comment on above: Performed By: #### C BC ####[facility] [address] [place], [place] [address]Dr. Norah Adrian Monocytes/100 WBC (Bld) 4.8 % Normal 1.7-12.0 [facility] Comment on above: Performed By: #### C BC ####[facility] [address] [place], [place] [address]Dr. Norah Campbell NEUT # 4.2 103/ul Normal 1.4-6.5 [facility] Comment on above: Performed By: #### C BC ####[facility] [address] [place], [place] [address]Dr. Norah Campbell Neutrophils/100 WBC (Bld) 71.2 % Normal 43.0-75.0 [facility] Comment on above: Performed By: #### C BC ####[facility] [address] [place], [place] [address]Uc. Norah Campbell Platelet mean volume (Bld) [Entitic vol] 10.2 fL Normal 9.5-13.5 [facility] Comment on above: Performed By: #### C BC ####[facility] [address] [place], [place] [address]Ru. Norah Campbell PLT 329 103/ul Normal 150-450 [facility] Comment on above: Performed By: #### C BC ####[facility] [address] [place], [place] [address]Ij. Norah Campbell RBC 4.35 106/ul Normal 4.20-5.40 [facility] Comment on above: Performed By: #### C BC ####[facility] [address] [place], [place] [address]Zh. Norah Campbell WBC 5.8 103/ul Normal 4.0-11.0 [facility] Comment on above: Performed By: #### C BC ####[facility] [address] [place], [place] [address]. [address] ABD/PELVIS WO CONon 10-23 [...] diverticulosis. Appendix visualized without findings of appendicitis. Peritoneum/retroperit oneum: No significant finding. Lymph nodes: No significant finding. Vessels: No significant finding. Body wall: No significant finding. Reproductive: No significant finding. Bones: No significant finding. IMPRESSION: Multiple bilateral renal calculi, including obstructing left UPJ stone and mild left hydronephrosis are unchanged. Electronically authenticated by: SERA SCHULER Date: 2021-10-23 16:42 Normal [facility] ER URINE PROFILEon 2 Bilirubin Ql (U) Negative Normal NEGATIVE [facility] Comment on above: Performed By: #### P REGU, ERUR, UMICRO #### [facility] [address] [place] [address] [address] Norah Campbell Clarity (U) CLEAR Normal CLEAR [facility] Comment on above: Performed By: #### P REGU, ERUR, UMICRO #### [facility] [address] [place] [address] [address] Norah Campbell Color (U) LT. YELLOW Normal YELLOW [facility] Comment on above: Performed By: #### P REGU, ERUR, UMICRO #### [facility] [address] [place] [address] [address] Norah GARZON A micrscopic examination will be performed if indicated. Normal [facility] Comment on above: Performed By: #### P REGU, ERUR, UMICRO #### [facility] [address] [place] [address] [address] Norah Campbell Glucose Ql (U) Negative Normal NEGATIVE [facility] Comment on above: Performed By: #### P REGU, ERUR, UMICRO #### [facility] [address] [place] [address] [address] Norah Campbell Hemoglobin Ql (U) MODERATE Abnormal NEGATIVE [facility] Comment on above: Performed By: #### P REGU, ERUR, UMICRO #### [facility] [address] [place] [address] [address] Norah Campbell Ketones Ql (U) Negative Normal NEGATIVE [facility] Comment on above: Performed By: #### P REGU, ERUR, UMICRO #### [facility] [address] [place] [address] [address] Norah Campbell LEUKOCYTES Negative Normal NEGATIVE [facility] Comment on above: Performed By: #### P REGU, ERUR, UMICRO #### [facility] [address] [place] [address] [address] oNrah Campbell Nitrite Ql (U) Negative Normal NEGATIVE [facility] Comment on above: Performed By: #### P REGU, ERUR, UMICRO #### [facility] [address] [place] [address] [address] Norah Campbell pH (U) 6.0 [pH] Normal 5-9 [facility] Comment on above: Performed By: #### P REGU, ERUR, UMICRO #### [facility] [address] [place] [address] [address] Norah Campbell SPEC GRAVITY 1.020 Normal 1.005-<=1.025 [place] Comment on above: Performed By: #### P REGU, ERUR, UMICRO #### [facility] [address] [place] [address] Dr. Norah Campbell UA PROTEIN TRACE Normal NEGATIVE/ TRACE [facility] Comment on above: Performed By: #### P REGU, ERUR, UMICRO #### [facility] [address] [place] [address] Dr. Norah Campbell UR MICRO IND INDICATED Normal [facility] Comment on above: Performed By: #### P REGU, ERUR, UMICRO #### [facility] [address] [place] [address] Dr. Norah Campbell Urobilinogen Qn (U) 0.2 {Litzy'U}/dL Normal 0.2 - 1.0 [facility] Comment on above: Performed By: #### P REGU, ERUR, UMICRO #### [facility] [address] [place] [address] Dr. Norah Campbell LACTATE/LACTIC ACIDon 2021 Lactate [Moles/Vol] 1.7 mmol/L Normal 0.4-1.9 [facility] Comment on above: Performed By: #### L ACT #### [facility] [address] [place] [address] Dr. Norah Campbell LIPASEon 10-23-2021 Lipase [Catalytic activity/Vol] 142.0 U/L Normal 73.0-393.0 [facility] Comment on above: Performed By: #### L IPA, CMP ####[facility] [address] [place] [address]DrLizzy Campbell URon 10-23-2021 , QUAL Negative Normal NEGATIVE [facility] Comment on above: Performed By: #### P REGU, ERUR, UMICRO #### [facility] [address] [place] [address] [address] Norah Campbell PROF 14(COMP METB)on 022 Albumin [Mass/Vol] 4.1 g/dL Normal 3.4-5.0 [facility] Comment on above: Performed By: #### L IPA, CMP ####[facility] [address] [place] [address]Dr. Norah Campbell Albumin/Globulin [Mass ratio] 1.2 {ratio} Normal [facility] Comment on above: Performed By: #### L IPA, CMP ####[facility] [address] [place] [address]Dr. Norah Campbell ALP [Catalytic activity/Vol] 86 U/L Normal 46-116 [facility] Comment on above: Performed By: #### L IPA, CMP ####[facility] [address] [place] [address]Dr. Norah Campbell ALT [Catalytic activity/Vol] 80 U/L Critically high 14-59 [facility] Comment on above: Performed By: #### L IPA, CMP ####[facility] [address] [place] [address]Dr. Norah Campbell Anion gap [Moles/Vol] 12.2 mmol/L Normal [facility] Comment on above: Performed By: #### L IPA, CMP ####[facility] [address] [place] [address]Dr. Norah Campbell AST [Catalytic activity/Vol] 74 U/L Critically high 15-37 [facility] Comment on above: Performed By: #### L IPA, CMP ####[facility] [address] [place], [place] [address]Dr. Norah Campbell Bilirubin [Mass/Vol] 0.4 mg/dL Normal 0.2-1.0 [facility] Comment on above: Performed By: #### L IPA, CMP ####[facility] [address] [place], [place] [address]Dr. Norah Campbell Calcium [Mass/Vol] 9.3 mg/dL Normal 8.5-10.1 [facility] Comment on above: Performed By: #### L IPA, CMP ####[facility] [address] [place], [place] [address]Dr. Norah Campbell Chloride [Moles/Vol] 106 mmol/L Normal 98-107 [facility] Comment on above: Performed By: #### L IPA, CMP ####[facility] [address] [place], [place] [address]Dr. Norah Campbell CO2 [Moles/Vol] 26.7 mmol/L Normal 21.0-32.0 [facility] Comment on above: Performed By: #### L IPA, CMP ####[facility] [address] [place], [place] [address]Dr. Norah Campbell Creatinine [Mass/Vol] 1.36 mg/dL Critically high 0.55-1.02 [facility] Comment on above: Performed By: #### L IPA, CMP ####[facility] [address] [place], [place] [address]Dr. Norah Adrian EGFR-AF [place] 51 mL/min/1.73m2 Critically low >=60 [facility] Comment on above: Performed By: #### L IPA, CMP ####[facility] [address] [place], [place] [address]Dr. Norah Campbell EGFR-NON AF [place] 42 mL/min/1.73m2 Critically low >=60 [facility] Comment on above: Performed By: #### L IPA, CMP ####[facility] [address] [place], [place] [address]Dr. Norah Campbell Globulin (S) [Mass/Vol] 3.4 g/dL Normal [facility] Comment on above: Performed By: #### L IPA, CMP ####[facility] [address] [place] [address]Dr. Norah Campbell Glucose [Mass/Vol] 132 mg/dL Critically high 74-106 [facility] Comment on above: Performed By: #### L IPA, CMP ####[facility] [address] [place] [address]Dr. Norah Campbell Potassium [Moles/Vol] 4.9 mmol/L Normal 3.5-5.1 [facility] Comment on above: Performed By: #### L IPA, CMP ####[facility] [address] [place], [place] [address]Dr. Norah Campbell Protein [Mass/Vol] 7.5 g/dL Normal 6.4-8.2 [facility] Comment on above: Performed By: #### L IPA, CMP ####[facility] [address] [place], [place] [address]Dr. Norah Campbell Sodium [Moles/Vol] 140 mmol/L Normal 136-145 [facility] Comment on above: Performed By: #### L IPA, CMP ####[facility] [address] [place], [place] [address]Dr. Norah Campbell Urea nitrogen [Mass/Vol] 28.0 mg/dL Critically high 7.0-18.0 [facility] Comment on above: Performed By: #### L IPA, CMP ####[facility] [address] [place], [place] [address]Dr. Norah Campbell Urea nitrogen/Creatini ne [Mass ratio] 20.6 mg/mg Normal [facility] Comment on above: Performed By: #### L IPA, CMP ####[facility] [address] [place], [place] [address]Dr. Norah Campbell URINE MICROSCOPIC ONLYon BACTERIA TRACE Abnormal NONE SEEN [facility] Comment on above: Performed By: #### P REGU, ERUR, UMICRO ####[facility] [address] [place] [address]Dr. Norah Campbell Bacteria identified Cx Nom (U) INDICATED Normal [facility] Comment on above: Performed By: #### P REGU, ERUR, UMICRO ####[facility] [address] [place] [address]Dr. Norah Campbell CAST NONE SEEN Normal NONE SEEN [facility] Comment on above: Performed By: #### P REGU, ERUR, UMICRO ####[facility] [address] [place] [address]Dr. Norah Campbell Crystals LM Nom (Urine sed) NONE SEEN Normal NONE SEEN [facility] Comment on above: Performed By: #### P REGU, ERUR, UMICRO ####[facility] [address] [place] [address]Dr. Norah Campbell Epithelial cells LM Ql (Urine sed) MODERATE Abnormal NONE SEEN /RARE [facility] Comment on above: Performed By: #### P REGU, ERUR, UMICRO ####[facility] [address] [place] [address]Dr. Norah Campbell MUCOUS NONE SEEN Normal NONE SEEN [facility] Comment on above: Performed By: #### P REGU, ERUR, UMICRO ####[facility] [address] [place] [address]Dr. Norah Campbell RBC 0-2 Normal 0-2 [facility] Comment on above: Performed By: #### P REGU, ERUR, UMICRO ####[facility] [address] [place] [address]Dr. Norah Campbell WBC 2-5 Abnormal NONE SEEN [facility] Comment on above: Performed By: #### P REGU, ERUR, UMICRO ####[facility] [address] [place] [address]Dr. Norah Campbell [facility]27 SARS-CoV-2 (COVID-19) RNA DAVID+probe Ql (Unsp spec) Not detected Normal NOT DETECTED [facility] Comment on above: Result Comment: This test is not yet approved or cleared by the [place] FDA. When there are no FDA-approved or cleared tests available, and other criteria are met, FDA can make tests available under an emergency access mechanism called an Emergency Use Authorization (EUA). The EUA for this test is supported by the [place] of Health and Human Service's (HHS's) declaration [...] consistent with SARS-CoV-2. Performed By: #### C [facility] #### [facility] [address] [place] [address] ABD/PELVIS WO CONon [...] by: TAMMIE BURCH Date: 2021-10-17 20:00 Normal [facility] US KIDNEYSon 10-12-2021 US KIDNEYS EXAMINATION: US [...] stone if clinically indicated. Electronically authenticated by: JOSE GARCIA Date: 2021-10-12 06:59 Normal [facility] XR KUB 1 VIEWon 10-12-2021 XR KUB [...] appreciable urinary tract calculi. Electronically authenticated by: JOSE GARCIA Date: 2021-10-12 13:11 Normal [facility] US BX BRST RT ADD LESIONon 0 07-11-2021 US BX BRST RT ADD LESION Begin Addendum #1 COLLECTED DATE/TIME: 07/01/2021, 08:36 EDT Final Diagnosis Report for [facility] [place] (A) RIGHT BREAST 6 O'CLOCK MASS, [...] lesions 2. Pathology results are pending. Normal [facility] MAMMO POST BIOPSY RIGHTon MAMMO POST BIOPSY RIGHT Patient: MIRIAM BRYAN Exam Date: 07/01/2021 : 1975 Gender:F Ordering : DR KEVIN CASTILLO . Admission #: [id number] Family : Order #: [id number] CLICK HERE TO VIEW EXAM RADIOLOGY REPORT [...] Maria MD on 07/01/2021 at 09:03 Normal [facility] US BREAST RIGHT LIMITEDon US BREAST RIGHT LIMITED Patient: MIRIAM BRYAN. Exam Date: 06/22/2021 : 1975 Gender:F Ordering : DR KEVIN CASTILLO . Admission #: [id number] Family : Order #: [id number] CLICK HERE TO VIEW EXAM RADIOLOGY REPORT [...] PALPABLE LUMP SHOULD BE BIOPSIED. Dictated by: Jose Garcia M.D. on 06/22/2021 at 09:05 Approved by: Jose Garcia M.D. on 06/22/2021 at 09:36 Normal [facility] MG MAMM SCREEN 3D MARÍA CADon 06-14-2021 MG MAMM SCREEN 3D MARÍA CAD Patient: MIRIAM BRYAN. Exam Date: 06/14/2021 : 1975 Gender:F Ordering : DR KEVIN CASTILLO . Admission #: [id number] Family : Order #: [id number] CLICK HERE TO VIEW EXAM RADIOLOGY REPORT [...] prostate cancer at age 55. LOCATION: [facility] BREAST COMPOSITION: Scattered areas fibroglandular density. FINDINGS: [...] PALPABLE LUMP SHOULD BE BIOPSIED. Dictated by: Jose Garcia M.D. on 06/14/2021 at 13:47 Approved by: Jose Garcia M.D. on 06/14/2021 at 13:51 Normal [facility] US SOFI DOP LEG RTon 06-07-19 22 [...] by: SAADIA SUNSHINE Date: 2021-06-06 19:08 Normal [facility] XR KNEE RT 4V or >on 022 [...] by: MICHELLE SMITH Date: 2021-06-06 17:25 Normal [facility] KULWINDER SUBTYPING (8)on 05-17-19 22 ANTI CENTROMERE B <0.4 Normal (0.0 - 10.0) [facility] Comment on above: Order Comment: [facility] ACCN = [id number] FACILITY: [facility] [id number] Result Comment: PERF ORMED ON PHADIA EFFECTIVE 04-25-2021 Performed By: #### E NA6 #### [facility] [address] [facility], [id number] ANTI ds DNA 3.0 IU/ML Normal (0.0 - 15.0) [facility] Comment on above: Order Comment: [facility] ACCN = [id number] FACILITY: [facility] [id number] Performed By: #### E NA6 #### [facility] [address] [facility], [address] ANTI DORIS-1 <0.3 Normal (0.0 - 10.0) [facility] Comment on above: Order Comment: [facility] ACCN = [id number] FACILITY: [facility] [id number] Performed By: #### E NA6 #### [facility] [address] [facility], [id number] ANTI PLUMBING INSPECTOR (U1RNP) 0.8 U/mL Normal (0.0 - 10.0) [facility] Comment on above: Order Comment: [facility] ACCN = [id number] FACILITY: [facility] [id number] Performed By: #### E NA6 #### [facility] [address] [facility], [address] ANTI SCL 70 <0.6 Normal (0.0 - 10.0) [facility] Comment on above: Order Comment: [facility] ACCN = [id number] FACILITY: [facility] [id number] Performed By: #### E NA6 #### [facility] [address] [facility], [address] ANTI CRANE <0.7 Normal (0.0 - 10.0) [facility] Comment on above: Order Comment: [facility] ACCN = [id number] FACILITY: [facility] [id number] Performed By: #### E NA6 #### [facility] [address] [facility], [address] ANTI SSA/RO <0.4 Normal (0.0 - 10.0) [facility] Comment on above: Order Comment: [facility] ACCN = [id number] FACILITY: [facility] [id number] Performed By: #### E NA6 #### [facility] [address] [facility], [address] ANTI SSB/LA <0.4 Normal (0.0 - 10.0) [facility] Comment on above: Order Comment: [facility] ACCN = [id number] FACILITY: [facility] [id number] Performed By: #### E NA6 #### [facility] [address] [facility], [address] KULWINDER - TITERon 05-07-2021 KULWINDER by HEp-2 CELLS Negative Normal (NEG - NEG) [facility] Comment on above: Performed By: #### V D25, *KULWINDER, ESRCRP, C3-C4, TSHT34, UA, CHEM-C, CBC/D #### [facility] [address] [facility], [address] KULWINDER TITER 1:40 Normal (<1:40 - 1:40) [facility] Comment on above: Performed By: #### V D25, *KULWINDER, ESRCRP, C3-C4, TSHT34, UA, CHEM-C, CBC/D #### [facility] [address] [facility], [address] C3 AND C4on 05-07-2021 C 3 180 MG/DL High (88 - 165) [facility] Comment on above: Performed By: #### V D25, *KULWINDER, ESRCRP, C3-C4, TSHT34, UA, CHEM-C, CBC/D #### [facility] [address] [facility], [address] C 4 44 MG/DL Normal (14 - 44) [facility] Comment on above: Performed By: #### V D25, *KULWINDER, ESRCRP, C3-C4, TSHT34, UA, CHEM-C, CBC/D #### [facility] [address] [facility], [address] CBC WITH DIFFon 05-07-2021 ABS BASOPHIL 0.04 x10^3ul Normal (0.00 - 0.16) [facility] Comment on above: Order Comment: FACIL ITY: [facility] NWO MAGDI PERFORMED ON ADDITIONAL [facility] [phone] Performed By: #### V D25, *KULWINDER, ESRCRP, C3-C4, TSHT34, UA, CHEM-C, CBC/D #### [facility] [address] [facility], [address] ABS EOSINOPHIL 0.28 x10^3ul Normal (0.00 - 0.40) [facility] Comment on above: Order Comment: FACIL ITY: [facility] NWO MAGDI PERFORMED ON AD[facility]AL [facility] [phone] Performed By: #### V D25, *KULWINDER, ESRCRP, C3-C4, TSHT34, UA, CHEM-C, CBC/D #### [facility] [address] [facility], [id number] ABS IMMATURE GRANS 0.02 x10^3ul Normal (0.00 - 0.11) [facility] Comment on above: Order Comment: FACIL ITY: [facility]WO MAGDI PERFORMED ON ADDITIONAL [facility] [id number] [phone] Performed By: #### V D25, *KULWINDER, ESRCRP, C3-C4, TSHT34, UA, CHEM-C, CBC/D #### [facility] [address] [facility], [id number] ABS LYMPHOCYTE 2.40 x10^3ul Normal (0.96 - 5.40) [facility] Comment on above: Order Comment: FACIL ITY: [facility]DI PERFORMED ON ADDITIONAL [facility] [phone] Performed By: #### V D25, *KULWINDER, ESRCRP, C3-C4, TSHT34, UA, CHEM-C, CBC/D #### [facility] [address] [facility], [id number] ABS MONOCYTE 0.59 x10^3ul Normal (0.10 - 1.00) [facility] Comment on above: Order Comment: FACIL ITY: [facility]WO [facility]DI PERFORMED ON ADDITIONAL [facility] [id number] [phone] Performed By: #### V D25, *KULWINDER, ESRCRP, C3-C4, TSHT34, UA, CHEM-C, CBC/D #### [facility] [address] [facility], [address] ABS NEUTROPHIL 4.10 x10^3ul Normal (1.50 - 7.00) [facility] Comment on above: Order Comment: FACIL ITY: [facility]WO [employer]DI PERFORMED ON ADDITIONAL ACCN [id number] [id number] Performed By: #### V D25, *KULWINDER, ESRCRP, C3-C4, TSHT34, UA, CHEM-C, CBC/D #### [facility] [address] [facility], [address] Basophils/100 WBC (Bld) 0.5 % Normal () [facility] Comment on above: Order Comment: FACIL ITY: [facility] NWO [employer]DI PERFORMED ON ADDITIONAL [facility] [phone] Performed By: #### V D25, *KULWINDER, ESRCRP, C3-C4, TSHT34, UA, CHEM-C, CBC/D #### [facility] [address] [facility], [address] Eosinophils/100 WBC (Bld) 3.8 % Normal () [facility] Comment on above: Order Comment: FACIL ITY: [facility] PERFORMED ON ADDITIONAL [facility] [phone] Performed By: #### V D25, *KULWINDER, ESRCRP, C3-C4, TSHT34, UA, CHEM-C, CBC/D #### [facility] [address] [facility], [id number] Hematocrit (Bld) [Volume fraction] 41.1 % Normal (37.0 - 47.0) [facility] Comment on above: Order Comment: FACIL ITY: [facility]DI PERFORMED ON ADDITIONAL [facility] [id number] [phone] Performed By: #### V D25, *KULWINDER, ESRCRP, C3-C4, TSHT34, UA, CHEM-C, CBC/D #### [facility] [address] [facility], [address] Hemoglobin (Bld) [Mass/Vol] 12.9 g/dL Normal (12.0 - 16.0) [facility] Comment on above: Order Comment: FACIL ITY: [facility]WO [facility]DI PERFORMED ON ADDITIONAL [facility] [phone] Performed By: #### V D25, *KULWINDER, ESRCRP, C3-C4, TSHT34, UA, CHEM-C, CBC/D #### [facility] [address] [facility], [address] IMMATURE GRANS (IG) 0.3 % Normal () [facility] Comment on above: Order Comment: FACIL ITY: [facility] PERFORMED ON ADDITIONAL ACCN [id number] [id number] Performed By: #### V D25, *KULWINDER, ESRCRP, C3-C4, TSHT34, UA, CHEM-C, CBC/D #### [facility] [address] [facility], [address] LYMPS 32.3 % Normal () [facility] Comment on above: Order Comment: FACIL ITY: [facility]WO [employer]DI PERFORMED ON ADDITIONAL ACCN [id number] [phone] Performed By: #### V D25, *KULWINDER, ESRCRP, C3-C4, TSHT34, UA, CHEM-C, CBC/D #### [facility] [address] [facility], [address] MCH (RBC) [Entitic mass] 29.5 pg Normal (27.0 - 33.0) [facility] Comment on above: Order Comment: FACIL ITY: [facility] PERFORMED ON ADDITIONAL [facility] [phone] Performed By: #### V D25, *KULWINDER, ESRCRP, C3-C4, TSHT34, UA, CHEM-C, CBC/D #### [facility] [address] [facility], [address] MCHC (RBC) [Mass/Vol] 31.4 g/dL Normal (30.0 - 37.0) [facility] Comment on above: Order Comment: FACIL ITY: [facility]WO [facility]DI PERFORMED ON ADDITIONAL ACCN [id number] [id number] Performed By: #### V D25, *KULWINDER, ESRCRP, C3-C4, TSHT34, UA, CHEM-C, CBC/D #### [facility] [address] [facility], [address] MCV (RBC) [Entitic vol] 93.8 fL Normal (81.0 - 99.0) [facility] Comment on above: Order Comment: FACIL ITY: [facility] PERFORMED ON ADDITIONAL [facility] [phone] Performed By: #### V D25, *KULWINDER, ESRCRP, C3-C4, TSHT34, UA, CHEM-C, CBC/D #### [facility] [address] [facility], [address] MONOS 7.9 % Normal () [facility] Comment on above: Order Comment: FACIL ITY: [facility]WO [employer]DI PERFORMED ON ADDITIONAL [facility] [phone] Performed By: #### V D25, *KULWINDER, ESRCRP, C3-C4, TSHT34, UA, CHEM-C, CBC/D #### [facility] [address] [facility], [address] PLT 510 x10^3ul High (130 - 400) [facility] Comment on above: Order Comment: FACIL ITY: [facility] PERFORMED ON ADDITIONAL [facility] [phone] Performed By: #### V D25, *KULWINDER, ESRCRP, C3-C4, TSHT34, UA, CHEM-C, CBC/D #### [facility] [address] [facility], [address] RBC 4.38 x10^6ul Normal (4.20 - 5.40) [facility] Comment on above: Order Comment: FACIL ITY: [facility]WO [employer]DI PERFORMED ON ADDITIONAL [facility] [phone] Performed By: #### V D25, *KULWINDER, ESRCRP, C3-C4, TSHT34, UA, CHEM-C, CBC/D #### [facility] [address] [facility], [address] RDW-SD 52.0 fl High (37.0 - 49.0) [facility] Comment on above: Order Comment: FACIL ITY: [facility]WO [facility]DI PERFORMED ON ADDITIONAL [facility] [phone] Performed By: #### V D25, *KULWINDER, ESRCRP, C3-C4, TSHT34, UA, CHEM-C, CBC/D #### [facility] [address] [facility], [address] SEGS 55.2 % Normal () [facility] Comment on above: Order Comment: FACIL ITY: [facility] PERFORMED ON ADDITIONAL [facility] [phone] Performed By: #### V D25, *KULWINDER, ESRCRP, C3-C4, TSHT34, UA, CHEM-C, CBC/D #### [facility] [address] [facility], [address] WBC 7.43 x10^3ul Normal (3.80 - 10.60) [facility] Comment on above: Order Comment: FACIL ITY: [facility] PERFORMED ON ADDITIONAL [facility] [phone] Performed By: #### V D25, *KULWINDER, ESRCRP, C3-C4, TSHT34, UA, CHEM-C, CBC/D #### [facility] [address] [facility], [address] COMP METABOLIC PANEL W/GFRon 05-07-2021 Albumin [Mass/Vol] 4.7 g/dL Normal (3.5 - 5.0) [facility] Comment on above: Performed By: #### V D25, *KULWINDER, ESRCRP, C3-C4, TSHT34, UA, CHEM-C, CBC/D #### [facility] [address] [facility], [address] ALK PHOS 127 U/L High (38 - 126) [facility] Comment on above: Performed By: #### V D25, *KULWINDER, ESRCRP, C3-C4, TSHT34, UA, CHEM-C, CBC/D #### [facility] [address] [facility], [address] ALT [Catalytic activity/Vol] 55 U/L High (1 - 35) [facility] Comment on above: Performed By: #### V D25, *KULWINDER, ESRCRP, C3-C4, TSHT34, UA, CHEM-C, CBC/D #### [facility] [address] [place], [address] AST [Catalytic activity/Vol] 45 U/L Normal (15 - 46) [facility] Comment on above: Performed By: #### V D25, *KULWINDER, ESRCRP, C3-C4, TSHT34, UA, CHEM-C, CBC/D #### [facility] [address] [place], [address] Bilirubin [Mass/Vol] 0.5 mg/dL Normal (0.2 - 1.3) [facility] Comment on above: Performed By: #### V D25, *KULWINDER, ESRCRP, C3-C4, TSHT34, UA, CHEM-C, CBC/D #### [facility] [address] [place], [address] Calcium [Mass/Vol] 9.9 mg/dL Normal (8.6 - 10.6) [facility] Comment on above: Performed By: #### V D25, *KULWINDER, ESRCRP, C3-C4, TSHT34, UA, CHEM-C, CBC/D #### [facility], [address] Chloride [Moles/Vol] 105 mmol/L Normal (98 - 107) [facility] Comment on above: Performed By: #### V D25, *KULWINDER, ESRCRP, C3-C4, TSHT34, UA, CHEM-C, CBC/D #### [facility], [address] CO2 [Moles/Vol] 28 mmol/L Normal (22 - 30) [facility] Comment on above: Performed By: #### V D25, *KULWINDER, ESRCRP, C3-C4, TSHT34, UA, CHEM-C, CBC/D #### [facility] [address] [place], [address] Creatinine [Mass/Vol] 0.95 mg/dL Normal (0.52 - 1.04) [facility] Comment on above: Performed By: #### V D25, *KULWINDER, ESRCRP, C3-C4, TSHT34, UA, CHEM-C, CBC/D #### [facility] [address] [facility], [address] GFR- AMER 76.6 ML/M1.7 Normal (60.0 - 140.1) To [facility] Comment on above: Performed By: #### V D25, *KULWINDER, ESRCRP, C3-C4, TSHT34, UA, CHEM-C, CBC/D #### [facility] [address] [facility], [address] GFR-NON AFRIC-AMER 63.3 ML/M1.7 Normal (60.0 - 115.8) [facility] Comment on above: Performed By: #### V D25, *KULWINDER, ESRCRP, C3-C4, TSHT34, UA, CHEM-C, CBC/D #### [facility] [address] [facility], [address] Glucose [Mass/Vol] 98 mg/dL Normal (74 - 106) [facility] Comment on above: Performed By: #### V D25, *KULWINDER, ESRCRP, C3-C4, TSHT34, UA, CHEM-C, CBC/D #### [facility] [address] [facility], [address] Potassium [Moles/Vol] 4.7 mmol/L Normal (3.5 - 5.1) [facility] Comment on above: Performed By: #### V D25, *KULWINDER, ESRCRP, C3-C4, TSHT34, UA, CHEM-C, CBC/D #### [facility] [address] [facility], [address] Protein [Mass/Vol] 7.3 g/dL Normal (6.3 - 8.2) [facility] Comment on above: Performed By: #### V D25, *KULWINDER, ESRCRP, C3-C4, TSHT34, UA, CHEM-C, CBC/D #### [facility] [address] [facility], [address] Sodium [Moles/Vol] 141 mmol/L Normal (137 - 145) [facility] Comment on above: Performed By: #### V D25, *KULWINDER, ESRCRP, C3-C4, TSHT34, UA, CHEM-C, CBC/D #### [facility] [address] [facility], [address] Urea nitrogen [Mass/Vol] 15 mg/dL Normal (7 - 17) [facility] Comment on above: Performed By: #### V D25, *KULWINDER, ESRCRP, C3-C4, TSHT34, UA, CHEM-C, CBC/D #### [facility] [address] [facility], [address] SED RATE - CRPon 05-07-2021 CRP EXTENDED RANGE 10.10 MG/L High (0.00 - 3.20) [facility] Comment on above: Performed By: #### V D25, *KULWINDER, ESRCRP, C3-C4, TSHT34, UA, CHEM-C, CBC/D #### [facility] [address] [facility], [address] SED RATE WEST. 46 MM/HR High (0 - 25) [facility] Comment on above: Performed By: #### V D25, *KULWINDER, ESRCRP, C3-C4, TSHT34, UA, CHEM-C, CBC/D #### [facility] [address] [facility], [address] T3 FREE, T4 FREE AND TSHon 0 05-07-2021 Free T3 [Mass/Vol] 2.79 pg/mL Normal (2.71 - 6.16) [facility] Comment on above: Performed By: #### V D25, *KULWINDER, ESRCRP, C3-C4, TSHT34, UA, CHEM-C, CBC/D #### [facility] [address] [place], [address] Free T4 [Mass/Vol] 0.98 ng/dL Normal (0.64 - 1.79) [facility] Comment on above: Performed By: #### V D25, *KULWINDER, ESRCRP, C3-C4, TSHT34, UA, CHEM-C, CBC/D #### [facility] [address] [facility], [address] TSH Qn 2.35 m[IU]/L Normal (0.470 - 4.680) [facility] Comment on above: Performed By: #### V D25, *KULWINDER, ESRCRP, C3-C4, TSHT34, UA, CHEM-C, CBC/D #### [facility] [address] [facility], [address] URINALYSIS, COMPLETEon 05-07 ALBUMIN TRACE High (NONE - NEG) [facility] Comment on above: Performed By: #### V D25, *KULWINDER, ESRCRP, C3-C4, TSHT34, UA, CHEM-C, CBC/D #### [facility] [address] [place], [address] BACTERIA MOD High (NONE - OCC) [facility] Comment on above: Performed By: #### V D25, *KULWINDER, ESRCRP, C3-C4, TSHT34, UA, CHEM-C, CBC/D #### [facility] [address] [place], [address] Bilirubin Ql (U) Negative Normal (NEG) [facility] Comment on above: Performed By: #### V D25, *KULWINDER, ESRCRP, C3-C4, TSHT34, UA, CHEM-C, CBC/D #### [facility] [address] [place], [address] CHARACTER HAZY Normal (CLEAR - HAZY) [facility] Comment on above: Performed By: #### V D25, *KULWINDER, ESRCRP, C3-C4, TSHT34, UA, CHEM-C, CBC/D #### [facility] [address] [place], [address] Color (U) P YEL Normal (P YEL - L AMB) [facility] Comment on above: Performed By: #### V D25, *KULWIDNER, ESRCRP, C3-C4, TSHT34, UA, CHEM-C, CBC/D #### [facility] [address] [place], [address] Glucose Ql (U) Negative Normal (NEG) [facility] Comment on above: Performed By: #### V D25, *KULWINDER, ESRCRP, C3-C4, TSHT34, UA, CHEM-C, CBC/D #### [facility] [address] [place], [address] Ketones Ql (U) Negative Normal (NEG) [facility] Comment on above: Performed By: #### V D25, *KULWINDER, ESRCRP, C3-C4, TSHT34, UA, CHEM-C, CBC/D #### [facility] [address] [place], [address] LEUK. ESTERASE MOD High (NEG) [facility] Comment on above: Performed By: #### V D25, *KULWINDER, ESRCRP, C3-C4, TSHT34, UA, CHEM-C, CBC/D #### [facility] [address] [place], [address] Mucus Ql (Urine sed) OCC Normal (NONE - OCC) [facility] on above: Performed By: #### V D25, *KULWINDER, ESRCRP, C3-C4, TSHT34, UA, CHEM-C, CBC/D #### [facility] [address] [place], [address] Nitrite Ql (U) Positive High (NEG) [facility] Comment on above: Performed By: #### V D25, *KULWINDER, ESRCRP, C3-C4, TSHT34, UA, CHEM-C, CBC/D #### [facility] [address] [place], [address] OCCULT BLD. LARGE High (NEG) [facility] Comment on above: Performed By: #### V D25, *KULWINDER, ESRCRP, C3-C4, TSHT34, UA, CHEM-C, CBC/D #### [facility] [address] [place], [address] pH (U) 8.0 [pH] Normal (5.0 - 9.0) [facility] Comment on above: Performed By: #### V D25, *KULWINDER, ESRCRP, C3-C4, TSHT34, UA, CHEM-C, CBC/D #### [facility] [address] [place], [address] SP. GRAVITY 1.015 Normal (1.001 - 1.035) [facility] Comment on above: Performed By: #### V D25, *KULWINDER, ESRCRP, C3-C4, TSHT34, UA, CHEM-C, CBC/D #### [facility] [address] [place], [address] SQUAMOUS EPI MOD High (NONE - OCC) [facility] Comment on above: Performed By: #### V D25, *KULWINDER, ESRCRP, C3-C4, TSHT34, UA, CHEM-C, CBC/D #### [facility] [address] [place], [address] UR. RBC 3-5 High (0 - 2) [place] Comment on above: Performed By: #### V D25, *KULWINDER, ESRCRP, C3-C4, TSHT34, UA, CHEM-C, CBC/D #### [place] [facility] [address] [place], [id number] UR. WBC TNTC High (0 - 4) [facility] Comment on above: Performed By: #### V D25, *KULWINDER, ESRCRP, C3-C4, TSHT34, UA, CHEM-C, CBC/D #### [place] [address] [place], [id number] Urobilinogen (U) [Mass/Vol] 0.2 mg/dL Normal (0.2 - <2.0) [facility] Comment on above: Performed By: #### V D25, *KULWINDER, ESRCRP, C3-C4, TSHT34, UA, CHEM-C, CBC/D #### [facility] [address] [facility], [address] VITAMIN D, 25 HYDROXYon - VITAMIN D, 25 31.0 NG/ML Normal (30.0 - 100.0) [facility] Comment on above: Result Comment: * * * VITAMIN D, 25 HYDROXY GENERAL GUIDELINE * * * DEFICIENCY = < OR = 20.0 NG/ML INSUFFICIENCY = 20.1 - 29.9 NG/ML SUFFICIENCY = 30.0 - 100.0 NG/ML TOXICITY = > 100.1 NG/ML Performed By: #### V D25, *KULWINDER, ESRCRP, C3-C4, TSHT34, UA, CHEM-C, CBC/D #### [facility] [address] [facility], [address] XR ankle LT min 3V*on 2020 XR ankle LT min 3V* [address] [address] XRay Report Signed Patient: Miriam Bryan MR#: [id number] : 1975 Acct:[id number] Age/Sex: 45 / F ADM Date: 12/07/20 Loc: [facility] Room: Type: [facility] CLI Attending Dr: Jimmy Ruiz DPM, MS Ordering Provider: Jimmy Ruiz DPM, MS Date of Service: 12/07/20 XR/XR ankle LT min 3V*: PAIN Copies to: Jimmy Ruiz DPM, MS Left ankle 12/07/2020. CLINICAL DATA: Follow-up [...] Phillips Jr., M.D.12/07/2020 7:36 PM Dictation Location: [place] [address] Transcribed By: [facility] 12/07/201935 Dictated By: Vick Phillips Jr, MD 12/07/201930 Signed By: 12/07/201935 Normal [facility] Vital Signs Date Time Vital Sign Value Performing Clinician Merry kowalski 07-08-2023 14:25-040 Body height 158.75 cm [facility] 07-08-2023 14:25-0400 Body mass index (BMI) [Ratio] 31.4 kg/m2 [facility] 07-08-2023 14:25-040 Body temperature 98.1 [degF] [facility] 07-08-2023 14:25-040 Body weight 79.09 kg [facility] 07-08-2023 14:25-040 Diastolic blood pressure 75 mm[Hg] [facility] 07-08-2023 14:25-0400 Heart rate 113 /min [facility] 07-08-2023 14:25-040 Respiratory rate 18 /min [facility] 07-08-2023 14:25-0400 SaO2% (BldA) [Mass fraction] 97 % [facility] 07-08-2023 14:25-0400 Systolic blood pressure 112 mm[Hg] [facility] 10-20-2021 09:23-0400 Blood Pressure Location Myra Lue [facility] 10-20-2021 09:23-0400 Diastolic blood pressure 86 mm[Hg] Myra Lue [facility] 10-20-2021 09:23-0400 Heart rate 77 /min Myra Lue [facility] 10-20-2021 09:23-0400 Systolic blood pressure 132 mm[Hg] Myar Lue [facility] 08-03-2021 14:30-0400 Diastolic blood pressure 111 mm[Hg] IAN TOM [facility] 08-03-2021 14:30-0400 Heart rate 74 /min IAN TOM [facility] 08-03-2021 14:30-0400 Respiratory rate 16 /min IAN TOM [facility] 08-03-2021 14:30-0400 Systolic blood pressure 138 mm[Hg] IAN TOM [facility] Encounters Encounter Date Encounter Type Care Provider Facility Start: 06-02-2024 ambulatory [facility] Start: 03-03-2024 End: 03-03-2024 ambulatory Cory Story Facility:[facility] Start: 01-10-2024 End: 01-10-2024 Lab Drop off Cory Story [facility] Start: 01-10-2024 End: 01-10-2024 ambulatory Cory Story Facility:[facility] Start: 12-25-2023 End: 12-25-2023 ambulatory Cory Story Facility:[facility] Start: 11-22-2023 End: 11-22-2023 ambulatory Cory Story Facility:[facility] Start: 11-08-2023 End: 11-08-2023 ambulatory Cory Story Facility:[facility] Start: 10-15-2023 End: 10-15-2023 ambulatory Cory Story Facility:[facility] Start: 09-17-2023 End: 09-17-2023 ambulatory Cory Story Facility:[facility] Start: 08-07-2023 End: 08-07-2023 ambulatory Cory Story Facility:[facility] Start: 07-30-2023 End: 07-30-2023 ambulatory Cory Story Facility:[facility] Start: 07-08-2023 End: 07-08-2023 ambulatory [facility] Work Phone: Start: 07-08-2023 End: 07-08-2023 Patient encounter procedure [facility] [place] Work Phone: Start: 07-02-2023 End: 07-02-2023 ambulatory Cory Story Facility:[facility] Start: 06-25-2023 End: 06-25-2023 ambulatory Cory Story Facility:[facility] Start: 06-11-2023 End: 06-11-2023 ambulatory Cory Story Facility:[facility] Start: 05-28-2023 End: 05-28-2023 ambulatory RADHA ARGUETA Facility:[facility] Start: 05-07-2023 End: 05-07-2023 Lab Drop off Cory Story [facility] Start: 05-07-2023 End: 05-07-2023 ambulatory Cory Story Facility:[facility] Start: 04-05-2023 End: 04-05-2023 ambulatory Cory Story Facility:[facility] Start: 06-02-[address] KEVIN CASTILLO . Facil ity:[facility] Start: 03-24-2022 End: 03-24-[address] KEVIN CASTILLO . Facility:[facility] Start: 11-21-[address] KEVIN CASTILLO . Facil ity:[facility] Start: 11-02-2021 End: 11-02-[address] STEFAN MARIA Facility:[facility] Start: 10-27-2021 Encounter for preprocedural laboratory examination MYRA VILLALOBOS . [facility] Start: 10-26-2021 End: 10-27-2021 ambulatory MYRA VILLALOBOS . Facility:[facility] Start: 10-26-2021 End: 10-27-2021 Encounter for preprocedural laboratory examination MYRA VILLALOBOS . Facility:[facility] Start: 10-23-2021 End: 10-23-2021 ambulatory BOBO MOULTON . Facility:[facility] Start: 10-20-2021 End: 10-20-2021 Patient encounter procedure Myra Villalobos [facility] Start: 10-19-2021 End: 10-19-[address] KEVIN CASTILLO . Facility:[facility] Start: 10-17-2021 End: 10-18-[address] SILVIO Ball Facility:[facility] Start: 10-11-2021 End: 10-12-[address] DOCTOR GARCIA Facility:[facility] Start: 08-03-2021 End: 08-03-2021 Lab Drop off IAN SANTOS [facility] Start: 08-03-2021 End: 08-03-2021 Patient encounter procedure IAN SANTOS [facility] Start: 07-01-2021 End: 07-01-[address] KEVIN [...] lithotripsy of calculus of kidney IAN SANTOS History of ankle surgery Abisai Story Hysterectomy Cory Story Immunizations Immunization Date Immunization Notes Care Provider Julio hernandez 07-16-2020 SARS-CoV-2 (COVID-19 ) Ad26 vaccine, recombinant Cory Story [facility] Comment on above: Result Comment: 2023: TPV40 02-27-2020 SARS-CoV-2 mRNA (tozinameran 5y-11y) vaccine Myra Villalobos [facility] [place] Comment on above: Result Comment: 2 va ccines Payers Date Payer Category Payer Private Health Insurance [id number] 2020 Unknown [id number] 1975 Unknown [id number] 2.16.840.1.987356.3.579.2.593 1975 Unknown [id number] 2.0.1.710264.3.579.2.593 1975 Unknown [id number] 2.16.840.1.639950.3.579.2.593 1975 Unknown [id number] 2.16.840.1.615228.3.579.2.593 1975 Unknown [id number] 2.16.840.1.319324.3.579.2.593 1975 Unknown [id number] 2.16.840.1.557657.3.579.2.593 1975 Unknown [id number] 2.16.840.1.485603.3.579.2.593 1975 Unknown [id number] 2.16.840.1.008355.3.579.2.593 1975 Unknown [id number] 2.16.840.1.521019.3.579.2.593 1975 Unknown [id number] 2.16.840.1.517185.3.579.2.593 1975 Unknown [id number] 2.16.840.1.202966.3.579.2.593 1975 Unknown [id number] 2.16.840.1.683222.3.579.2.593 1975 Unknown [id number] 2.16.840.1.830092.3.579.2.593 1975 Unknown [id number] 2.16.840.1.072302.3.579.2.593 1975 Unknown [id number] 2.16.840.1.938576.3.579.2.593 1975 Unknown [id number] 2.16.840.1.186358.3.579.2.727 1975 Unknown [id number] 2.16.840.1.227532.3.579.2.727 1975 Unknown [id number] 2.16.840.1.757477.3.579.2.727 1975 Unknown [id number] 2.16.840.1.343055.3.579.2 1975 Unknown [id number] 2.16.840.1.648962.3.579.2 1975 Unknown [id number] 2.16.840.1.410879.3.579.2 1975 Unknown [id number] 2.16.840.1.019518.3.579.2 1975 Unknown [id number] 2.16.840.1.673199.3.579.2 1975 Unknown [id number] 2.16.840.1.258345.3.579.2 1975 Unknown [id number] 2.16.840.1.455996.3.579.2 1975 Unknown [id number] 2.16.840.1.927008.3.579.2 1975 Unknown [id number] 2.16.840.1.211986.3.579.2 1975 Unknown [id number] 2.16.840.1.187264.3.579.2 1975 Unknown [id number] 2.16.840.1.475948.3.579.2 1975 Unknown [id number] 2.16.840.1.199388.3.579.2 1975 Unknown [id number] 2.16.840.1.727348.3.579.2 1975 Unknown [id number] 2.16.840.1.053386.3.579.2 1975 Unknown [id number] 2.16.840.1.778336.3.579.2.727 1959 Self-pay [id number] 1959 Unknown [id number] Self-pay [id number] Unknown [id number] (STD) [id number] Social History Date Type Detail [facility] Start: 1975 Sex Assigned At Female F [facility] Start: 08-03-2021 Tobacco smoking status Never s moked tobacco (finding) [facility] Sex Assigned At Female [facility] Start: 05-07-2023 End: 01-10-2024 Tobacco smoking status Ex-smoker (finding) [facility] Tobacco smoking status Never [facility] Goals Date Patient Goal Desired Activity /State Functional Status Date Assessment Result Facility 10-20-2021 Functional Status N/A [facility] Clinical Notes 08-03-2021 to 03-03-2024 Note Date & Type Note Facility 03-03-2024 Note Patient Education Nutrition BMI for Adults Body mass index (BMI) is a number found using a person's weight and height. BMI can help tell how much of a person's weight is made up of fat. BMI does not measure body fat directly. It is used instead of tests that directly measure body fat, which can be difficult and expensive. What are BMI measurements used for? BMI is useful to: ??? Find out if your weight puts you at higher risk for medical problems. ??? Help recommend changes, such as in diet and exercise. This can help you reach a healthy weight. BMI screening can be done again to see if these changes are working. How is BMI calculated? Your height and weight are measured. The BMI is found from those numbers. This can be done with U.S. or metric measurements. Note that charts and online BMI calculators are available to help you find your BMI quickly and easily without doing these calculations. To calculate your BMI in U.S. measurements: 1. Measure your weight in pounds (lb). 2. Multiply the number of pounds by 703. ??? So, for an adult who weighs 150 lb, multiply that number by 703: 150 x 703, which equals 105,450. 3. Measure your height in inches. Then multiply that number by itself to get a measurement called inches squared. ??? So, for an adult who is 70 inches tall, the inches squared measurement is 70 inches x 70 inches, which equals 4,900 inches squared. 4. Divide the total from step 2 (number of lb x 703) by the total from step 3 (inches squared): 105,450 ? 4,900 = 21.5. This is your BMI. To calculate your BMI in metric measurements: 1. Measure your weight in kilograms (kg). ??? For this example, the weight is 70 kg. 2. Measure your height in meters (m). Then multiply that number by itself to get a measurement called meters squared. ??? So, for an adult who is 1.75 m tall, the meters squared measurement is 1.75 m x 1.75 m, which equals 3.1 meters squared. 3. Divide the number of kilograms (your weight) by the meters squared number. In this example: 70 ? 3.1 = 22.6. This is your BMI. What do the results mean? BMI charts are used to see if you are underweight, normal weight, overweight, or obese. The following guidelines will be used: ??? Underweight: BMI less than 18.5. ??? Normal weight: BMI between 18.5 and 24.9. ??? Overweight: BMI between 25 and 29.9. ??? Obese: BMI of 30 or above. BMI is a tool and cannot diagnose a condition. Talk with your health care provider about what your BMI means for you. Keep these notes in mind: ??? Weight includes fat and muscle. Someone with a muscular build, such as an athlete, may have a BMI that is higher than 24.9. In cases like these, BMI is not a correct measure of body fat. ??? If you have a BMI of 25 or higher, your provider may need to do more testing to find out if excess body fat is the cause. ??? BMI is measured the same way for males and females. Females usually have more body fat than males of the same height and weight. Where to find more information For more information about BMI, including tools to quickly find your BMI, go to: ??? Centers for Disease Control and Prevention: cdc.gov ??? [place] Heart Association: heart.org ??? National Heart, Lung, and Blood [place]: nhlbi.nih.gov This information is not intended to replace advice given to you by your health care provider. Make sure you discuss any questions you have with your health care provider. Document Revised: 11/02/2022 Document Reviewed: 10/26/2022 [employer] Patient Education ? 2023 [employer]. [facility] 11-22-2023 Note Patient Education Nutrition BMI for Adults Body mass index (BMI) is a number found using a person's weight and height. BMI can help tell how much of a person's weight is made up of fat. BMI does not measure body fat directly. It is used instead of tests that directly measure body fat, which can be difficult and expensive. What are BMI measurements used for? BMI is useful to: ? Find out if your weight puts you at higher risk for medical problems. ? Help recommend changes, such as in diet and exercise. This can help you reach a healthy weight. BMI screening can be done again to see if these changes are working. How is BMI calculated? Your height and weight are measured. The BMI is found from those numbers. This can be done with U.S. or metric measurements. Note that charts and online BMI calculators are available to help you find your BMI quickly and easily without doing these calculations. To calculate your BMI in U.S. measurements: 1. Measure your weight in pounds (lb). 2. Multiply the number of pounds by 703. ? So, for an adult who weighs 150 lb, multiply that number by 703: 150 x 703, which equals 105,450. 3. Measure your height in inches. Then multiply that number by itself to get a measurement called inches squared. ? So, for an adult who is 70 inches tall, the inches squared measurement is 70 inches x 70 inches, which equals 4,900 inches squared. 4. Divide the total from step 2 (number of lb x 703) by the total from step 3 (inches squared): 105,450 ? 4,900 = 21.5. This is your BMI. To calculate your BMI in metric measurements: 1. Measure your weight in kilograms (kg). ? For this example, the weight is 70 kg. 2. Measure your height in meters (m). Then multiply that number by itself to get a measurement called meters squared. ? So, for an adult who is 1.75 m tall, the meters squared measurement is 1.75 m x 1.75 m, which equals 3.1 meters squared. 3. Divide the number of kilograms (your weight) by the meters squared number. In this example: 70 ? 3.1 = 22.6. This is your BMI. What do the results mean? BMI charts are used to see if you are underweight, normal weight, overweight, or obese. The following guidelines will be used: ? Underweight: BMI less than 18.5. ? Normal weight: BMI between 18.5 and 24.9. ? Overweight: BMI between 25 and 29.9. ? Obese: BMI of 30 or above. BMI is a tool and cannot diagnose a condition. Talk with your health care provider about what your BMI means for you. Keep these notes in mind: ? Weight includes fat and muscle. Someone with a muscular build, such as an athlete, may have a BMI that is higher than 24.9. In cases like these, BMI is not a correct measure of body fat. ? If you have a BMI of 25 or higher, your provider may need to do more testing to find out if excess body fat is the cause. ? BMI is measured the same way for males and females. Females usually have more body fat than males of the same height and weight. Where to find more information For more information about BMI, including tools to quickly find your BMI, go to: ? Centers for Disease Control and Prevention: cdc.gov ? [place] Heart Association: heart.org ? National Heart, Lung, and Blood [place]: nhlbi.nih.gov This information is not intended to replace advice given to you by your health care provider. Make sure you discuss any questions you have with your health care provider. Document Revised: 11/02/2022 Document Reviewed: 10/26/2022 [employer] Patient Education ? 2023 [employer]. [facility] 10-15-2023 Note Patient Education Nutrition BMI for Adults What is BMI? Body mass index (BMI) is a number that is calculated from a person's weight and height. BMI can help estimate how much of a person's weight is composed of fat. BMI does not measure body fat directly. Rather, it is an alternative to procedures that directly measure body fat, which can be difficult and expensive. BMI can help identify people who may be at higher risk for certain medical problems. What are BMI measurements used for? BMI is used as a screening tool to identify possible weight problems. It helps determine whether a person is obese, overweight, a healthy weight, or underweight. BMI is useful for: ? Identifying a weight problem that may be related to a medical condition or may increase the risk for medical problems. ? Promoting changes, such as changes in diet and exercise, to help reach a healthy weight. BMI screening can be repeated to see if these changes are working. How is BMI calculated? BMI involves measuring your weight in relation to your height. Both height and weight are measured, and the BMI is calculated from those numbers. This can be done either in Croatian (U.S.) or metric measurements. Note that charts and online BMI calculators are available to help you find your BMI quickly and easily without having to do these calculations yourself. To calculate your BMI in [place]ian (U.S.) measurements: 1. Measure your weight in pounds (lb). 2. Multiply the number of pounds by 703. ? For example, for a person who weighs 180 lb, multiply that number by 703, which equals 126,540. 3. Measure your height in inches. Then multiply that number by itself to get a measurement called inches squared. ? For example, for a person who is 70 inches tall, the inches squared measurement is 70 inches x 70 inches, which equals 4,900 inches squared. 4. Divide the total from step 2 (number of lb x 703) by the total from step 3 (inches squared): 126,540 ? 4,900 = 25.8. This is your BMI. To calculate your BMI in metric measurements: 1. Measure your weight in kilograms (kg). 2. Measure your height in meters (m). Then multiply that number by itself to get a measurement called meters squared. ? For example, for a person who is 1.75 m tall, the meters squared measurement is 1.75 m x 1.75 m, which is equal to 3.1 meters squared. 3. Divide the number of kilograms (your weight) by the meters squared number. In this example: 70 ? 3.1 = 22.6. This is your BMI. What do the results mean? BMI charts are used to identify whether you are underweight, normal weight, overweight, or obese. The following guidelines will be used: ? Underweight: BMI less than 18.5. ? Normal weight: BMI between 18.5 and 24.9. ? Overweight: BMI between 25 and 29.9. ? Obese: BMI of 30 or above. Keep these notes in mind: ? Weight includes both fat and muscle, so someone with a muscular build, such as an athlete, may have a BMI that is higher than 24.9. In cases like these, BMI is not an accurate measure of body fat. ? To determine if excess body fat is the cause of a BMI of 25 or higher, further assessments may need to be done by a health care provider. ? BMI is usually interpreted in the same way for men and women. Where to find more information For more information about BMI, including tools to quickly calculate your BMI, go to these websites: ? Centers for Disease Control and Prevention: www.cdc.gov ? [place] Heart Association: www.heart.org ? National Heart, Lung, and Blood [place]: www.nhlbi.nih.gov Summary ? Body mass index (BMI) is a number that is calculated from a person's weight and height. ? BMI may help estimate how much of a person's weight is composed of fat. BMI can help identify those who may be at higher risk for certain medical problems. ? BMI can be measured using Croatian measurements or metric measurements. ? BMI charts are used to identify whether you are underweight, normal weight, overweight, or obese. This information is not intended to replace advice given to you by your health care provider. Make sure you discuss any questions you have with your health care provider. Document Revised: 11/05/2019 Document Reviewed: 09/12/2019 Elsevier Patient Education ? 2022 [employer]. [facility] 10-20-2021 Hospital Discharg e instructions Patient Education [...] include: ?Spinach. ?Rhubarb. ?Beets. ?Potato chips and greek fries. ?Nuts. If you regularly take a diuretic medicine, make sure to eat at least 1 2 fruits or vegetables high in potassium each day. These include: ?Avocado. ?Banana. ?[place], prune, carrot, or tomato juice. ?Baked potato. [...] Casseroles. Pizza. Lasagna. Frozen meals. Potato chips. Bengali fries. Summary You can reduce your risk [...] 06/09/2011 Document Revised: 06/04/2019 Document Reviewed: 01/23/2017 [employer] Patient Education 2020 [employer]. Follow Up Care 10/19/2021 08:47:02 With:Wilfredo PASTRANA, JORGE Stringer, URO Address: When: Unknown [facility] 08-03-2021 Hospital Discharg e instructions Patient Education 08/03/2021 16:05:36 Kidney Stones, Jsna-vr-Gjtl Kidney Stones Kidney stones are rock-like masses [...] Follow these instructions at home: Medicines Take zxlh-usr-duegzke and prescription medicines only as told by [...] 07/31/2008 Document Revised: 07/01/2019 Document Reviewed: 07/01/2019 Elsevier Patient Education 2020 [employer] Follow Up Care 07/21/2021 10:01:36 With:pending results Address:Unknown When: Unknown [facility] 08-03-2021 Evaluation + Plan note Diagnostic Tests PendingUrine Culture 08/03/21 [facility] Evaluation + Plan note No data available for this section [facility] Evaluation + Plan note Future Appointments Appointment Date:06/11/2023 03:30:00 PM Scheduled Provider:Cory Story MD Location:[facility] Appointment Type:FM Open Diagnostic Tests PendingANA w/Reflex if POS 05/07/23 [facility] Evaluation + Plan note Future Appointments Appointment Date:02/11/2024 05:30:00 PM Scheduled Provider:Cory Story MD Location:[facility] Appointment Type:FM Open Diagnostic Tests PendingUrine Culture 01/10/24 [facility] Evaluation note No assessment inform ation available [facility] Work Phone: Hospital Discharge instructions No data available for this section [facility] Progress note No data available for this section [facility] [place] Assessments No Assessments Information Available Summary Purpose Family History No Family History Records Found Relationship Condition Age at Onset Recorded Date/T drew Not Specified Ouywg-2-fwkyzshiorx deficiency Unknown Malignant neoplasm of urinary bladder Unk nown Malignant neoplasm of breast Unknown father Malignant neoplasm of colon Unknown Malignant neoplasm of prostate Unknown father Malignant neoplasm Unknown Unknown Not Specified Malignant neoplasm Unknown Advance Directives No Advanced Directives Records Found Advance Directive Response Recorded Date/ Time Advance Directives No June 13 018 1:40pm Chief Complaint and Reason for Visit Chief Complaint swollen tonsils, con gestion Additional Source Comments INFORMATION SOURCE (unrecogn ized section and content) DATE CREATED AUTHOR 04/19/2021 [facility] DATE CREATED AUTHOR AUTHOR'S ORGANIZ ATION 05/16/2021 [facility] DATE CREATED AUTHOR AUTHOR'S ORGANIZ ATION 06/03/2022 [facility] DATE CREATED AUTHOR AUTHOR'S ORGANIZ ATION 01/18/2024 [facility] DATE CREATED AUTHOR AUTHOR'S ORGANIZ ATION 03/08/2024 [facility] DATE CREATED AUTHOR AUTHOR'S ORGANIZ ATION 03/09/2024 [facility] Care Team (unrecognized sect ion and content) Team Status: Active Member Role Status Dates Kevin Castillo MD Primary Care Provider Active Team Status: Inactive Member Role Status Dates Kevin Castillo MD Primary Care Provider Active S tart: July 08, 2023 End: July 08, 2023 Radha Morales APRN Attending Provider Active Start: July 08, 2023 End: July 08, 2023 Goals (unrecognized section and content) Goals may be documented in a n alternate section FOR RECORDS PERTAINING TO PATIENTS WHO ARE [...] BE BASED ON THE PRIMARY CLINICAL RECORDS. [email or web address] provides no warranty or guarantee of the accuracy or completeness of information in this document.
--- NOTE | 2024-04-24 00:16 | PC.NURSE ---
complains of right flank pain onset 2 hours ago, this patient has Hx of kidney stones, and she made a comment I think i might have another kidney stone
[2024-04-24 00:24] LABS: Bilirubin Urine NEGATIVE (NEGATIVE); Blood Urine LARGE (NEGATIVE); Clarity Urine CLOUDY (CLEAR); Color Urine LT. YELLOW (YELLOW); Glucose Urine UA NEGATIVE (NEGATIVE); Ketones Urine TRACE mg/dL (NEGATIVE); Leukocyte Esterase Urine MODERATE (NEGATIVE); Nitrite Urine POSITIVE (NEGATIVE); Protein Urine >=300 mg/dL (NEG/TRACE); Specific Gravity Urine 1.025 (1.005-1.025)
[2024-04-24 00:28] LABS: Urine Microscopic Indicated YES
--- NOTE | 2024-04-24 00:38 | ED.GENADUL1 ---
HPI HPI - General Adult General Chief complaint: Back Pain/Injury Stated complaint: LOWER ABDOMINAL PAIN Time Seen by Provider: 04/24/24 00:05 Source: patient Mode of arrival: walk-in Limitations: no limitations History of Present Illness HPI narrative: 49-year-old female to the emergency department with chief complaint of right-sided flank pain. Symptoms began over the last 24 hours. She denies any fever, sweats, chills. No nausea or vomiting. She reports a history of kidney stones with similar symptoms. She denies any urinary symptoms. Related Data Home Medications ?Medication ?Instructions ?Recorded ?Confirmed bupropion HCl 150 mg 24 hr tablet, mg PO 04/24/24 extended release lorazepam 0.5 mg tablet mg 04/24/24 Previous Rx's ?Medication ?Instructions ?Recorded cephalexin 500 mg capsule 500 mg PO BID 7 days #14 caps 02/20/23 hydrocodone 5 mg-acetaminophen 325 1 tab PO Q6H PRN pain 4 days #14 02/20/23 mg tablet tabs ketorolac 10 mg tablet 10 mg PO Q8H PRN pain #14 tabs 02/20/23 ondansetron 4 mg disintegrating 4 mg PO Q6H PRN nausea and 02/20/23 tablet vomiting #20 tabs tamsulosin 0.4 mg capsule (Flomax) 0.4 mg PO DAILY #14 caps 02/20/23 Allergies Allergy/AdvReac Type Severity Reaction Status Date / Time levofloxacin (From Levaquin) Allergy Mild rash Verified 04/24/24 00:05 metoclopramide (From Reglan) Allergy Mild rash Verified 04/24/24 00:05 Opioid HPI Opioid Management Most Recent Opioid Data: Last Pain Scale 8 04/24/24 02:07 04/24/24 Last APR Pain Assessment 04/24/24 02:07 Review of Systems ROS Status of ROS 10 or more systems reviewed and unremarkable except as noted in history and below PFSH PFSH Social History Little interest or pleasure in doing things: not at all Feeling down, depressed, or hopeless: not at all Exam Narrative Exam Narrative: VITALS: I have reviewed the triage vital signs. GENERAL: Uncomfortable appearing adult female holding right flank. NEURO: Alert and oriented. Moves all extremities. Face is symmetric and expressive. EYES: PERRL. No scleral icterus or conjunctival injection. No discharge. HENT: Normocephalic, atraumatic. Hearing is grossly intact. Nares grossly patent and without discharge. Mucous membranes moist. NECK: No JVD. Patient moves neck without restriction. CARDIO: Rhythm regular. Normal rate. No murmur, rub, or gallop. Pulses equal bilaterally in the upper and lower extremity. No lower extremity edema. PULM: Lungs clear to auscultation in all jean. No wheezes, rales, or rhonchi. No conversational dyspnea. No splinting, stridor, or accessory muscle use. GI/: Abdomen is soft and non-tender. Normoactive bowel sounds. Right flank tenderness to percussion. EXTREMITIES: Symmetric muscle bulk. No joint swelling. No clubbing, cyanosis, or deformity. SKIN: Warm and dry. Normal turgor. No rash or lesions appreciated. PSYCH: Mood, affect, and interaction is appropriate to the setting. Constitutional Vital Signs, click to edit/add: Last Vital Signs Temp 98.4 F 04/24/24 00:06 Pulse 64 04/24/24 00:57 Resp 17 04/24/24 00:57 BP 103/70 04/24/24 02:00 Pulse Ox 95 04/24/24 02:00 O2 Del Method Room Air 04/24/24 00:06 Course Vital Signs Vital signs: Vital Signs Blood Pressure 117/86 04/24/24 00:04 Temperature 98.4 F 04/24/24 00:06 Pulse Rate 64 04/24/24 00:57 Respiratory Rate 17 04/24/24 00:57 Blood Pressure 103/70 04/24/24 02:00 Pulse Oximetry 95 04/24/24 02:00 Oxygen Delivery Method Room Air 04/24/24 00:06 Medical Decision Making [facility] Narrative Medical decision making narrative: 49-year-old female to the emergency department chief complaint of right-sided flank pain. Vital stable, the patient is afebrile. She is in a significant amount of discomfort. Toradol, morphine, Zofran ordered for symptom control. CT scan to evaluate for stone. Basic labs. Patient agrees with this plan. Lab work reviewed and noted. She has no leukocytosis. Her renal function is at baseline. Her urinalysis is concerning for urinary tract infection. Rocephin was given for the UTI. CT scan shows a large right-sided staghorn calculus extending into the right proximal ureter. Patient reevaluated. Her pain has recurred and is significant. Additional dose of Toradol and Dilaudid were ordered. Case was reviewed by our on-call urologist Dr. Maycol Ford. Given the obstructive nature of the staghorn calculus and its extension of the right proximal ureter she will require placement of a percutaneous nephrostomy tube which we do not have the capability of performing at this facility. Case was discussed with Dr. Silvestre, the on-call urologist at [facility]. He accepts the patient to his service. Would like ER to ER transfer so the patient can be taken to IR suite for placement of percutaneous nephrostomy tube. Report was given to Dr. Mock the ED attending. Patient agrees with plan for transfer. The patient was updated. Her pain is controlled at this time. She remains hemodynamically stable and afebrile. Abdulaziz Guy DO, [facility] Medical Records Medical records reviewed: Yes I reviewed the patient's medical records Lab Data Lab results reviewed: Yes I reviewed the patient's lab results Labs: Lab Results 04/24/24 04/24/24 Range/Units 00:03 00:35 WBC 10.1 (4.0-11.0) 10^3/uL RBC 4.06 L (4.20-5.40) 10^6/uL Hgb 12.6 (12.0-16.0) g/dL Hct 38.4 (36.0-48.0) % MCV 94.6 (81.0-99.0) fL MCH 31.0 (26.7-34.0) pg MCHC 32.8 (29.9-35.2) g/dL RDW 14.2 (11.0-15.0) % Plt Count 343 (150-450) 10^3/uL MPV 10.6 (9.5-13.5) fL Neut % (Auto) 52.9 (43.0-75.0) % Lymph % (Auto) 30.9 (20.5-60.0) % [place] % (Auto) 9.5 (1.7-12.0) % Eos % (Auto) 5.9 (0.9-7.0) % Baso % (Auto) 0.6 (0.2-2.0) % Neut # (Auto) 5.3 (1.4-6.5) 10^3/uL Lymph # (Auto) 3.1 (1.2-3.8) 10^3/uL [place] # (Auto) 1.0 H (0.3-0.8) 10^3/uL Eos # (Auto) 0.6 (0.0-0.7) 10^3/uL Baso # (Auto) 0.1 (0.0-0.1) 10^3/uL Abs Immat Gran (auto) 0.02 (0.00-0.03) 10^3/uL Imm/Tot Granulo (auto) 0.2 (0.0-0.5) % Sodium 144 (136-145) mmol/L Potassium 3.7 (3.5-5.1) mmol/L Chloride 104 (98-107) mmol/L Carbon Dioxide 29.9 (21.0-32.0) mmol/L Anion Gap 13.8 BUN 21.0 H (7.0-18.0) mg/dL Creatinine 1.19 H (0.55-1.02) mg/dL Est GFR ( Amer) 58 L (>=60 mL/min/1.73m^2) Est GFR (Non-Af Amer) 48 L (>=60 mL/min/1.73m^2) BUN/Creatinine Ratio 17.6 Glucose 110 H (74-106) mg/dL Calcium 9.0 (8.5-10.1) mg/dL Serum HCG, Qual Negative (NEGATIVE) Urine Color Lt. yellow (YELLOW) Urine Clarity Cloudy A (CLEAR) Urine pH 7.0 (5.0-9.0) Ur Specific [place] 1.025 (1.005-1.025) Urine Protein >=300 A (NEG/TRACE) mg/dL Urine Glucose (UA) Negative (NEGATIVE) mg/dL Urine Ketones Trace A (NEGATIVE) mg/dL Urine Occult Blood Large A (NEGATIVE) Urine Nitrite Positive A (NEGATIVE) Urine Bilirubin Negative (NEGATIVE) Urine Urobilinogen 1.0 (0.2-1.0) EU/dL Ur Leukocyte Esterase Moderate A (NEGATIVE) Urine RBC >100 A (0-2) #/HPF Urine WBC 20-50 A (NONE SEEN) #/HPF Ur Squamous Epith Cells Few A (NONE/RARE) #/LPF Urine Crystals None seen (None Seen) #/HPF Urine Bacteria Moderate A (NONE SEEN) #/HPF Urine Casts None seen (NONE SEEN) #/LPF Urine Mucus None seen (NONE SEEN) Ur Culture Indicated? [place] [place] - abdomen: Attestation: I have reviewed the pertinent imaging results. Radiologist's impression: See separate document uploaded into PACS Critical Care Time Critical Care Time Critical Care Time: Yes Total Critical Care Time: 32 Attestation: Critical Care Procedure Note Authorized and Performed by: Abdulaziz Guy DO Total critical care time: 32 min Due to a high probability of clinically significant, life threatening deterioration, the patient required my highest level of preparedness to intervene emergently and I personally spent this critical care time directly and personally managing the patient. This critical care time included obtaining a history; examining the patient; pulse oximetry; ordering and review of studies; arranging urgent treatment with development of a management plan; evaluation of patient's response to treatment; frequent reassessment; and, discussions with other providers. This critical care time was performed to assess and manage the high probability of imminent, life-threatening deterioration that could result in multi-organ failure. It was exclusive of separately billable procedures and treating other patients and teaching time. Please see MDM section and the rest of the note for further information on patient assessment and treatment. Discharge Plan Discharge Chief Complaint: Back Pain/Injury Clinical Impression: UTI (urinary tract infection), Staghorn calculus Patient Disposition: [facility] Time of Disposition Decision: 03:55 Discharge Location: [facility] Med Discharge location: [facility] ED Condition: Good Mode of Transportation: EMS Prescriptions / Home Meds: No Action ondansetron 4 mg tablet,disintegrating 4 mg PO Q6H PRN (Reason: nausea and vomiting) Qty: 20 0RF tamsulosin [Flomax] 0.4 mg capsule 0.4 mg PO DAILY Qty: 14 0RF ketorolac 10 mg tablet 10 mg PO Q8H PRN (Reason: pain) Qty: 14 0RF cephalexin 500 mg capsule 500 mg PO BID 7 Days Qty: 14 0RF hydrocodone-acetaminophen 5-325 mg tablet 1 tab PO Q6H PRN (Reason: pain) 4 Days Qty: 14 0RF Rx Instructions: ICD 10 = N20 - kidney stone lorazepam 0.5 mg tablet bupropion HCl 150 mg tablet extended release 24 hr PO Print Language: Slovak Referrals: ANIBAL READ [Primary Care Provider] - 1 week
[2024-04-24 00:49] LABS: Bacteria Urine MODERATE #/HPF (NONE SEEN); Mucus Urine NONE SEEN (NONE SEEN); RBC Urine >100 #/HPF (0-2); Squamous Epithelial Cell Urine FEW #/LPF (NONE/RARE); WBC Urine 20-50 #/HPF (NONE SEEN)
[2024-04-24 00:50] LABS: Cast Seen? NONE SEEN #/LPF (NONE SEEN); Crystals Seen? None Seen #/HPF (None Seen); Urine Culture Indicated YES-FRMC
[2024-04-24 00:58] LABS: Basophils Absolute Auto 0.1 10^3/uL (0.0-0.1); Basophils Percent Auto 0.6 % (0.2-2.0); Eosinophils Absolute Auto 0.6 10^3/uL (0.0-0.7); Eosinophils Percent Auto 5.9 % (0.9-7.0); Hematocrit 38.4 % (36.0-48.0); Hemoglobin 12.6 g/dL (12.0-16.0); Immature Granulocytes Abs Auto 0.02 10^3/uL (0.00-0.03); Immature Granulocytes Pct Auto 0.2 % (0.0-0.5); Lymphocytes Absolute Auto 3.1 10^3/uL (1.2-3.8); Lymphocytes Percent Auto 30.9 % (20.5-60.0); Mean Corpuscular HGB Conc 32.8 g/dL (29.9-35.2); Mean Corpuscular Volume 94.6 fL (81.0-99.0); Mean Platelet Volume 10.6 fL (9.5-13.5); Monocytes Percent Auto 9.5 % (1.7-12.0); Neutrophils Absolute Auto 5.3 10^3/uL (1.4-6.5); Neutrophils Percent Auto 52.9 % (43.0-75.0); Platelet Count 343 10^3/uL (150-450); Red Blood Count 4.06 10^6/uL (4.20-5.40); Red Cell Distribution Width 14.2 % (11.0-15.0); White Blood Count 10.1 10^3/uL (4.0-11.0)
[2024-04-24 01:08] LABS: Anion Gap 13.8; BUN Creatinine Ratio 17.6; Carbon Dioxide 29.9 mmol/L (21.0-32.0); Chloride 104 mmol/L (98-107); Estimated GFR (African America 58 (>=60 mL/min/1.73m^2); Estimated GFR (Non-African Ame 48 (>=60 mL/min/1.73m^2); Glucose 110 mg/dL (74-106); Potassium 3.7 mmol/L (3.5-5.1); Sodium 144 mmol/L (136-145)
[2024-04-24 01:09] LABS: HCG Qualitative NEGATIVE (NEGATIVE); Internal Control Within Normal Limits
[2024-04-24] MEDS: KETOROLAC TROMETHAMINE 30 MG/ML VIAL 15 MG IVP ×2 (01:13→02:07)
[2024-04-24] MEDS: ONDANSETRON PF 4 MG/2 ML VIAL IV (01:13)
[2024-04-24] MEDS: MORPHINE SULFATE 4 MG/ML VIAL IV (01:13)
[2024-04-24] MEDS: HYDROMORPHONE HCL 0.5 MG/0.5 ML SYRINGE IV ×2 (02:08→04:53)
--- NOTE | 2024-04-24 02:11 | PC.NURSE ---
this was given more pain medication while she is awake and alert sitting upright on the bed playing a game on her cell phone
--- NOTE | 2024-04-24 02:34 | PC.NURSE ---
patient awake and alert sitting upright on the bed still playing a game on her cell phone this patient voices no concerns and shows no signs of distress
[2024-04-24] MEDS: CEFTRIAXONE 1,000 MG in 0.9 % SODIUM CHLORIDE 50 ML 100 MG IV (03:05)
--- NOTE | 2024-04-24 03:17 | PC.NURSE ---
spoke with [facility] transfer center for possible transfer, they stated they are on a 48 hour wait, urology paged
--- NOTE | 2024-04-24 03:31 | PC.NURSE ---
this patient's son is here now at bedside this patient updated that [facility] unable to accepted her and we are trying [facility]
--- NOTE | 2024-04-24 03:33 | PC.NURSE ---
[facility] transfer center calls back, they are refusing pt due to not having bed availability for timely procedure that the pt needs
--- NOTE | 2024-04-24 03:34 | PC.NURSE ---
[facility] called for pt transfer
--- NOTE | 2024-04-24 03:46 | PC.NURSE ---
[facility] 1 hour 15 miin ETA
--- NOTE | 2024-04-24 03:52 | PC.NURSE ---
Dr Mock accepts pt in [facility]
--- NOTE | 2024-04-24 05:03 | PC.NURSE ---
patient report and paper work given to [facility], this patient awake and alert sitting upright on the bed. this patient was given more pain medication prior transport
== END 2024-04-24 05:04 | disposition short-term general hospital (02) ==
PROVIDERS: Emergency Provider Student in an Organized Health Care Education/Training Program; PCP Family Medicine
DX: N20.0 Calculus of kidney (principal); N39.0 Urinary tract infection, site not specified; Z87.442 Personal history of urinary calculi; Z90.710 Acquired absence of both cervix and uterus; Z90.49 Acquired absence of other specified parts of digestive tract; M51.369 Other intervertebral disc degeneration, lumbar region without mention of lumbar back pain or lower extremity pain; K57.30 Diverticulosis of large intestine without perforation or abscess without bleeding
CPT/HCPCS: 36415; 74176; 80048; 81001; 84703; 85025; 87086; 87150; 87186; 96365; 96375; 96376; 99285; J0696; J1171; J1885; J2270; J2405

== ENCOUNTER 2024-06-20 21:10 | Emergency (ER) | payer SELFPAY ==
[2024-06-20 21:15] VITALS: BP 91/64; PULSE 79; TEMP 36.6; O2SAT 98; BMI 25.6
[2024-06-20 21:46] LABS: Hematocrit 36.4 % (36.0-48.0); Hemoglobin 12.2 g/dL (12.0-16.0); Mean Corpuscular HGB Conc 33.5 g/dL (29.9-35.2); Mean Corpuscular Hemoglobin 30.9 pg (26.7-34.0); Mean Corpuscular Volume 92.2 fL (81.0-99.0); Mean Platelet Volume 10.5 fL (9.5-13.5); Platelet Count 318 10^3/uL (150-450); Red Blood Count 3.95 10^6/uL (4.20-5.40); Red Cell Distribution Width 12.7 % (11.0-15.0); White Blood Count 12.1 10^3/uL (4.0-11.0)
[2024-06-20] MEDS: 0.9 % SODIUM CHLORIDE 1,000 ML 999 ML IV (21:51)
[2024-06-20 21:56] LABS: Lymphocytes Absolute Manual 2.29 10^3/uL (1.20-3.80); Segmented Neut Absolute Manual 8.83 10^3/uL (1.4-6.5)
[2024-06-20 21:57] LABS: Monocytes Absolute Manual 0.96 10^3/uL (0.30-0.80)
[2024-06-20 22:00] LABS: Lactate/Lactic Acid 0.7 mmol/L (0.4-2.0)
[2024-06-20 22:09] LABS: Alanine Aminotransferase 85 U/L (14-59); Albumin Globulin Ratio 0.9; Albumin Level 3.4 g/dL (3.4-5.0); Alkaline Phosphatase 125 U/L (46-116); Anion Gap 18.6; Aspartate Amino Transferase 60 U/L (15-37); BUN Creatinine Ratio 9.9; Bilirubin Total 0.6 mg/dL (0.2-1.0); Calcium 9.2 mg/dL (8.5-10.1); Chloride 102 mmol/L (98-107); Estimated GFR (African America 44 (>=60 mL/min/1.73m^2); Estimated GFR (Non-African Ame 36 (>=60 mL/min/1.73m^2); Globulin 3.8 g/dL; Glucose 103 mg/dL (74-106); Potassium 3.6 mmol/L (3.5-5.1); Sodium 139 mmol/L (136-145); Total Protein 7.2 g/dL (6.4-8.2)
[2024-06-20] MEDS: ONDANSETRON PF 4 MG/2 ML VIAL IV (22:25)
[2024-06-20 22:28] LABS: Influenza Virus A Antigen Negative; Influenza Virus B Antigen Negative; Internal Control Within Normal Limits; SARS-CoV-2 Ag NEGATIVE (NEGATIVE)
[2024-06-20] MEDS: KETOROLAC TROMETHAMINE 30 MG/ML VIAL IVP (23:08)
[2024-06-20 23:11] VITALS: BP 96/66
[2024-06-20] MEDS: OXYCODONE HCL/ACETAMINOPHEN 5MG/325MG 2 TAB PO (23:47)
[2024-06-21] LABS: Bilirubin Urine NEGATIVE (NEGATIVE); Blood Urine LARGE (NEGATIVE); Clarity Urine CLOUDY (CLEAR); Color Urine YELLOW (YELLOW); Glucose Urine UA NEGATIVE (NEGATIVE); Ketones Urine NEGATIVE (NEGATIVE); Leukocyte Esterase Urine LARGE (NEGATIVE); Nitrite Urine POSITIVE (NEGATIVE); Protein Urine 100 mg/dL (NEG/TRACE)
[2024-06-21 00:16] LABS: Bacteria Urine LARGE #/HPF (NONE SEEN); RBC Urine 20-50 #/HPF (0-2); WBC Urine >100 #/HPF (NONE SEEN)
[2024-06-21 00:20] LABS: Cast Seen? NONE SEEN #/LPF (NONE SEEN); Crystals Seen? None Seen #/HPF (None Seen); Mucus Urine NONE SEEN (NONE SEEN); Squamous Epithelial Cell Urine RARE #/LPF (NONE/RARE); Urine Culture Indicated YES-FRMC
--- NOTE | 2024-06-21 00:28 | ED_ITS ---
HPI HPI - General Adult General Chief complaint: Nausea/Vomiting/Diarrhea Stated complaint: POSSIBLE SEPSIS Time Seen by Provider: 06/20/24 21:18 History of Present Illness HPI narrative: cc - I think I have sepsis Patient complains of generalized fatigue, decreased energy, decreased appetite and subsequently decreased oral intake. She told me that she has a stent in the right kidney and ureter and is supposed to have her left kidney removed. She admits to some upper respiratory symptoms with minimal cough -telling me I am not sick with a cold . She has chronic recurrent pain to the flank and abdomen. She said she is out of her roxycodone . No chest pain or trouble breathing. She has been able to pass very small amounts of stool, telling me that she has not had a normal BM in about 3 weeks. Related Data Home Medications ?Medication ?Instructions ?Recorded ?Confirmed omeprazole 40 mg capsule,delayed 40 mg PO DAILY 06/20/24 06/20/24 release Previous Rx's ?Medication ?Instructions ?Recorded ondansetron 4 mg disintegrating 4 mg PO Q6H PRN nausea and 02/20/23 tablet vomiting #20 tabs ciprofloxacin HCl 500 mg tablet 500 mg PO BID #10 tabs 06/21/24 (Cipro) Allergies Allergy/AdvReac Type Severity Reaction Status Date / Time levofloxacin (From Levaquin) Allergy Mild rash Verified 06/20/24 21:15 metoclopramide (From Reglan) Allergy Mild rash Verified 06/20/24 21:15 Opioid HPI Opioid Management Most Recent Opioid Data: Last Pain Scale 8 06/20/24 21:40 06/20/24 PFSH PFSH Social History Little interest or pleasure in doing things: not at all Feeling down, depressed, or hopeless: not at all Exam Narrative Exam Narrative: Nurses notes and vital signs reviewed and patient is not hypoxic. afebrile General: Well-appearing and in no apparent distress. Skin: Warm, dry, no pallor noted. No rash. Head: Normocephalic, atraumatic. Neck: Supple, non-tender. Eye: Pupils are equal, round and EOMI. No scleral icterus. Ears, Nose, Mouth, and Throat: Oral mucosa is slightly dry Cardiovascular: Regular Rate and Rhythm without murmur, gallop or rub. Respiratory: No accessory muscle use or respiratory distress. Lungs are clear to auscultation, no wheezing, rales or rhonchi Back: No midline thoracic or lumbar vertebral tenderness. No CVA tenderness Musculoskeletal: normal ROM, no calf or popliteal tenderness, no lower extremity edema/swelling GI: Abdomen is soft, non-distended. Normal bowel sounds. No tenderness to palpation. No rebound, guarding, or rigidity noted. Neurological: A&O x4. No cranial nerve dysfunction observed. No truncal ataxia. Moves all extremities. Sensation intact. Psychiatric: Cooperative and interactive. Normal mood and affect. Constitutional Vital Signs, click to edit/add: Last Vital Signs Temp 97.9 F 06/20/24 21:15 Pulse 79 06/20/24 21:15 Resp 14 06/20/24 21:15 BP 96/66 06/20/24 23:11 Pulse Ox 98 06/20/24 21:15 O2 Del Method Room Air 06/20/24 21:15 Course Vital Signs Vital signs: Vital Signs Temperature 97.9 F 06/20/24 21:15 Pulse Rate 79 06/20/24 21:15 Respiratory Rate 14 06/20/24 21:15 Blood Pressure 91/64 06/20/24 21:15 Pulse Oximetry 98 06/20/24 21:15 Oxygen Delivery Method Room Air 06/20/24 21:15 Temperature 97.9 F 06/20/24 21:15 Pulse Rate 79 06/20/24 21:15 Respiratory Rate 14 06/20/24 21:15 Blood Pressure 96/66 06/20/24 23:11 Pulse Oximetry 98 06/20/24 21:15 Oxygen Delivery Method Room Air 06/20/24 21:15 Medical Decision Making [facility] Narrative Medical decision making narrative: This patient has undergone numerous CT scans of the abdomen pelvis and therefore would like to limit that additional radiation exposure if possible tonight. Patient found to have an acute urinary tract infection. White blood cell count is minimally elevated at 12,000. Lactate was negative. Blood cultures are currently pending. Patient's blood pressure was decreased on arrival therefore she received a liter of normal saline IV fluid. She also received IV Toradol for pain. Creatinine is slightly elevated at 1.52 but BUN is normal. Electrolytes are normal. LFTs show mild elevation with an AST of 60, ALT of 85 and alk phos of 125 but a normal total bilirubin at 0.6. Urinalysis reveals acute urinary tract infection and she was started on Cipro with the first dose being given in the emergency department for discharge and a prescription for additional Cipro sent to her pharmacy of choice. She will need to follow-up with her urologist to discuss further intervention. ED return reasons discussed Medical Records Medical records reviewed: Yes I reviewed the patient's medical records Lab Data Lab results reviewed: Yes I reviewed the patient's lab results Labs: Lab Results 06/20/24 06/20/24 06/20/24 Range/Units 21:25 21:54 23:50 WBC 12.1 H (4.0-11.0) 10^3/uL RBC 3.95 L (4.20-5.40) 10^6/uL Hgb 12.2 (12.0-16.0) g/dL Hct 36.4 (36.0-48.0) % MCV 92.2 (81.0-99.0) fL MCH 30.9 (26.7-34.0) pg MCHC 33.5 (29.9-35.2) g/dL RDW 12.7 (11.0-15.0) % Plt Count 318 (150-450) 10^3/uL MPV 10.5 (9.5-13.5) fL Seg Neuts % (Manual) 73.0 (43.0-75.0) Lymphocytes % (Manual) 19.0 L (20.5-60.0) % Monocytes % (Manual) 8.0 (1.7-12.0) % Eosinophils % (Manual) 0.0 L (0.9-7.0) % Basophils % (Manual) 0.0 L (0.2-2.0) % Neutrophils # (Manual) 8.83 H (1.4-6.5) 10^3/uL Lymphocytes # (Manual) 2.29 (1.20-3.80) 10^3/uL Monocytes # (Manual) 0.96 H (0.30-0.80) 10^3/uL Eosinophils # (Manual) 0.00 (0.00-0.70) 10^3/uL Basophils # (Manual) 0.00 (0.00-0.10) 10^3/uL Sodium 139 (136-145) mmol/L Potassium 3.6 (3.5-5.1) mmol/L Chloride 102 (98-107) mmol/L Carbon Dioxide 22.0 (21.0-32.0) mmol/L Anion Gap 18.6 BUN 15.0 (7.0-18.0) mg/dL Creatinine 1.52 H (0.55-1.02) mg/dL Est GFR ( Amer) 44 L (>=60 mL/min/1.73m^2) Est GFR (Non-Af Amer) 36 L (>=60 mL/min/1.73m^2) BUN/Creatinine Ratio 9.9 Glucose 103 (74-106) mg/dL Lactate 0.7 (0.4-2.0) mmol/L Calcium 9.2 (8.5-10.1) mg/dL Total Bilirubin 0.6 (0.2-1.0) mg/dL AST 60 H (15-37) U/L ALT 85 H (14-59) U/L Alkaline Phosphatase 125 H (46-116) U/L Total Protein 7.2 (6.4-8.2) g/dL Albumin 3.4 (3.4-5.0) g/dL Globulin 3.8 g/dL Albumin/Globulin Ratio 0.9 Urine Color Yellow (YELLOW) Urine Clarity Cloudy A (CLEAR) Urine pH 7.0 (5.0-9.0) Ur Specific [place] 1.010 (1.005-1.025) Urine Protein 100 A (NEG/TRACE) mg/dL Urine Glucose (UA) Negative (NEGATIVE) mg/dL Urine Ketones Negative (NEGATIVE) mg/dL Urine Occult Blood Large A (NEGATIVE) Urine Nitrite Positive A (NEGATIVE) Urine Bilirubin Negative (NEGATIVE) Urine Urobilinogen 1.0 (0.2-1.0) EU/dL Ur Leukocyte Esterase Large A (NEGATIVE) Urine RBC 20-50 A (0-2) #/HPF Urine WBC >100 A (NONE SEEN) #/HPF Ur Squamous Epith Cells Rare (NONE/RARE) #/LPF Urine Crystals None seen (None Seen) #/HPF Urine Bacteria Large A (NONE SEEN) #/HPF Urine Casts None seen (NONE SEEN) #/LPF Urine Mucus None seen (NONE SEEN) Ur Culture Indicated? Yes-[facility] [place] Influenza Type A Ag Negative Influenza Type B Ag Negative SARS-CoV-2 Ag (CV2AG) Negative (NEGATIVE) Discharge Plan Discharge Chief Complaint: Nausea/Vomiting/Diarrhea Clinical Impression: UTI (urinary tract infection) Patient Disposition: Home, Self-Care Time of Disposition Decision: 00:30 Mode of Transportation: Private Vehicle Prescriptions / Home Meds: New ciprofloxacin HCl [Cipro] 500 mg tablet 500 mg PO BID Qty: 10 0RF No Action ondansetron 4 mg tablet,disintegrating 4 mg PO Q6H PRN (Reason: nausea and vomiting) Qty: 20 0RF omeprazole 40 mg capsule,delayed release(DR/EC) 40 mg PO DAILY Print Language: Tajik Instructions: Urinary Tract Infection in Women (ED) Referrals: ANIBAL READ [Primary Care Provider] - 1 week Discharge Date/Time: 06/21/24 00:40
[2024-06-21] MEDS: CIPROFLOXACIN HCL 500 MG TABLET PO (00:35)
== END 2024-06-21 00:40 | disposition home or self-care (01) ==
PROVIDERS: Emergency Provider Emergency Medicine; PCP Family Medicine
DX: N39.0 Urinary tract infection, site not specified (principal)
CPT/HCPCS: 36415; 80053; 81001; 83605; 85007; 85027; 87040; 87086; 87804; 87811; 96374; 96375; 99284; J1885; J2405

== ENCOUNTER 2025-02-09 15:03 | Inpatient (IN) | payer OTHER, SELFPAY ==
[2025-02-09 15:09] VITALS: BP 141/101; PULSE 96; TEMP 36.9; O2SAT 97; BMI 25.6
--- NOTE | 2025-02-09 15:18 | ED.GENADUL1 ---
HPI HPI - General Adult General Chief complaint: Urogenital-Female Stated complaint: FLANK PAIN BLOOD IN URINE NAUSEA Time Seen by Provider: 02/09/25 15:08 Source: patient Mode of arrival: walk-in History of Present Illness HPI narrative: The patient is a 50 years old female presenting to us with a right sided flank pain, patient have a history of atrophic left kidney and right sided kidney staghorn stone, the patient denies any fever but she did had some chills and she been having nausea and vomiting for the last few days, although the patient mentioned that she have a history of chronic right sided flank pain as she had a stent placed in May of this year The patient have no bowel movement changes she has not been able to keep anything in and she did not eat anything all day Related Data Allergies Allergy/AdvReac Type Severity Reaction Status Date / Time levofloxacin (From Levaquin) Allergy Mild rash Verified 02/09/25 15:08 metoclopramide (From Reglan) Allergy Mild rash Verified 02/09/25 15:08 Opioid HPI Opioid Management Most Recent Opioid Data: Last Pain Scale 10 Today, 15:17 Review of Systems ROS Status of ROS 10 or more systems reviewed and unremarkable except as noted in history and below PFSH PFSH Social History Little interest or pleasure in doing things: not at all Feeling down, depressed, or hopeless: not at all Exam Narrative Exam Narrative: Nurses notes and vital signs reviewed and patient is not hypoxic. General: Well-appearing and in no apparent distress. Skin: Warm, dry, no pallor noted. No rash. Head: Normocephalic, atraumatic. Neck: Supple, non-tender. Cardiovascular: Regular Rate and Rhythm without murmur, gallop or rub. Respiratory: No accessory muscle use or respiratory distress. Lungs are clear to auscultation, no wheezing, rales or rhonchi Chest Wall: no tenderness Back: No midline thoracic or lumbar vertebral tenderness. Right CVA tenderness Musculoskeletal: normal ROM, no calf or popliteal tenderness, no lower extremity edema/swelling GI: Abdomen is soft, non-distended. Normal bowel sounds. No masses appreciated. No tenderness to palpation. No rebound, guarding, or rigidity noted. Neurological: A&O x4. No cranial nerve dysfunction observed. No truncal ataxia. Moves all extremities. Sensation intact. Psychiatric: Cooperative and interactive. Normal mood and affect. Constitutional Vital Signs, click to edit/add: Last Vital Signs Temp 98.4 F 02/09/25 15:09 Pulse 96 H 02/09/25 15:09 Resp 18 02/09/25 15:09 BP 141/101 H 02/09/25 15:09 Pulse Ox 97 02/09/25 15:09 O2 Del Method Room Air 02/09/25 15:09 Course Vital Signs Vital signs: Vital Signs Temperature 98.4 F 02/09/25 15:09 Pulse Rate 96 H 02/09/25 15:09 Respiratory Rate 18 02/09/25 15:09 Blood Pressure 141/101 H 02/09/25 15:09 Pulse Oximetry 97 02/09/25 15:09 Oxygen Delivery Method Room Air 02/09/25 15:09 Temperature 98.4 F 02/09/25 15:09 Pulse Rate 96 H 02/09/25 15:09 Respiratory Rate 18 02/09/25 15:09 Blood Pressure 141/101 H 02/09/25 15:09 Pulse Oximetry 97 02/09/25 15:09 Oxygen Delivery Method Room Air 02/09/25 15:09 Medical Decision Making MDM Narrative Medical decision making narrative: Patient was in distress due to pain initially upon arrival Her CBC and chemistry showed that she have acute kidney injury with a baseline of 1.2 creatinine today is 2.2 and she also had a normal white blood cells Urinalysis was positive for UTI The patient CAT scan of the abdomen pelvis showed the patient have atrophic left kidney in addition to right-sided staghorn stone in the right kidney with a stent with no hydronephrosis With the patient history of having only 1 kidney and the fact that she had acute kidney injury and nausea vomiting with pain in the right side with a UTI the patient would benefit from admission and hydration in addition to making sure that the kidney function will go back to normal and treating the urine infection with antibiotic I did initially speak with the hospitalist in our facility and he recommended that the patient had her case discussed with urology and I did call [facility] urology and I spoke with recommended the patient to have 24 to 48 hours of hydration and antibiotic and in case of improvement the patient had the stent removed as outpatient but in case no improvement the patient will need the stent to be removed and she might need to transfer. The patient was supposed to see urology as outpatient but she did not follow-up with outpatient because of her history of not having any medical insurance I discussed the case with and he agreed with above-mentioned plan Lab Data Labs: Lab Results 02/09/25 02/09/25 Range/Units 15:08 15:28 WBC 8.5 (4.0-11.0) 10^3/uL RBC 4.21 (4.20-5.40) 10^6/uL Hgb 12.1 (12.0-16.0) g/dL Hct 37.1 (36.0-48.0) % MCV 88.1 (81.0-99.0) fL MCH 28.7 (26.7-34.0) pg MCHC 32.6 (29.9-35.2) g/dL RDW 14.6 (11.0-15.0) % Plt Count 488 H (150-450) 10^3/uL MPV 9.7 (9.5-13.5) fL Neut % (Auto) 73.4 (43.0-75.0) % Lymph % (Auto) 11.8 L (20.5-60.0) % [place] % (Auto) 10.6 (1.7-12.0) % Eos % (Auto) 3.5 (0.9-7.0) % Baso % (Auto) 0.5 (0.2-2.0) % Neut # (Auto) 6.2 (1.4-6.5) 10^3/uL Lymph # (Auto) 1.0 L (1.2-3.8) 10^3/uL [place] # (Auto) 0.9 H (0.3-0.8) 10^3/uL Eos # (Auto) 0.3 (0.0-0.7) 10^3/uL Baso # (Auto) 0.0 (0.0-0.1) 10^3/uL Abs Immat Gran (auto) 0.02 (0.00-0.03) 10^3/uL Imm/Tot Granulo (auto) 0.2 (0.0-0.5) % Sodium 143 (136-145) mmol/L Potassium 4.4 (3.5-5.1) mmol/L Chloride 109 H (98-107) mmol/L Carbon Dioxide 19.3 L (21.0-32.0) mmol/L Anion Gap 19.1 BUN 27.0 H (7.0-18.0) mg/dL Creatinine 2.27 H (0.55-1.02) mg/dL Est GFR ( Amer) 28 L (>=60 mL/min/1.73m^2) Est GFR (Non-Af Amer) 23 L (>=60 mL/min/1.73m^2) BUN/Creatinine Ratio 11.9 Glucose 105 (74-106) mg/dL Calcium 9.8 (8.5-10.1) mg/dL Total Bilirubin 0.4 (0.2-1.0) mg/dL AST 22 (15-37) U/L ALT 27 (14-59) U/L Alkaline Phosphatase 102 (46-116) U/L Total Protein 8.0 (6.4-8.2) g/dL Albumin 3.7 (3.4-5.0) g/dL Globulin 4.3 g/dL Albumin/Globulin Ratio 0.9 Urine Color Yellow (YELLOW) Urine Clarity Cloudy A (CLEAR) Urine pH 8.0 (5.0-9.0) Ur Specific [place] 1.015 (1.005-1.025) Urine Protein >=300 A (NEG/TRACE) mg/dL Urine Glucose (UA) Negative (NEGATIVE) mg/dL Urine Ketones Negative (NEGATIVE) mg/dL Urine Occult Blood Large A (NEGATIVE) Urine Nitrite Positive A (NEGATIVE) Urine Bilirubin Negative (NEGATIVE) Urine Urobilinogen 0.2 (0.2-1.0) EU/dL Ur Leukocyte Esterase Large A (NEGATIVE) Urine RBC 50-75 A (0-2) #/HPF Urine WBC >100 A (NONE SEEN) #/HPF Ur Squamous Epith Cells Rare (NONE/RARE) #/LPF Urine Crystals None seen (None Seen) #/HPF Urine Bacteria Large A (NONE SEEN) #/HPF Urine Casts None seen (NONE SEEN) #/LPF Urine Mucus None seen (NONE SEEN) Ur Culture Indicated? Yes-[facility] [place] Discharge Plan Discharge Chief Complaint: Urogenital-Female Clinical Impression: Kidney stones, UTI (urinary tract infection), JOSUÉ (acute kidney injury) Patient Disposition: Admitted As Inpatient
[2025-02-09 15:27] LABS: Glucose Urine UA NEGATIVE (NEGATIVE)
[2025-02-09 15:33] LABS: Hematocrit 37.1 % (36.0-48.0); Hemoglobin 12.1 g/dL (12.0-16.0); Immature Granulocytes Abs Auto 0.02 10^3/uL (0.00-0.03); Immature Granulocytes Pct Auto 0.2 % (0.0-0.5); Lymphocytes Absolute Auto 1.0 10^3/uL (1.2-3.8); Mean Corpuscular HGB Conc 32.6 g/dL (29.9-35.2); Mean Corpuscular Hemoglobin 28.7 pg (26.7-34.0); Mean Corpuscular Volume 88.1 fL (81.0-99.0); Platelet Count 488 10^3/uL (150-450); Red Blood Count 4.21 10^6/uL (4.20-5.40); White Blood Count 8.5 10^3/uL (4.0-11.0)
[2025-02-09] MEDS: 0.9 % SODIUM CHLORIDE 1,000 ML 1000 ML IV (15:40)
[2025-02-09] MEDS: FAMOTIDINE/PF 20 MG/2 ML VIAL IV (15:41)
[2025-02-09] MEDS: KETOROLAC TROMETHAMINE 30 MG/ML VIAL IVP (15:41)
[2025-02-09 15:48] LABS: Alanine Aminotransferase 27 U/L (14-59); Albumin Globulin Ratio 0.9; Albumin Level 3.7 g/dL (3.4-5.0); Alkaline Phosphatase 102 U/L (46-116); Anion Gap 19.1; Aspartate Amino Transferase 22 U/L (15-37); Blood Urea Nitrogen 27.0 mg/dL (7.0-18.0); Calcium 9.8 mg/dL (8.5-10.1); Carbon Dioxide 19.3 mmol/L (21.0-32.0); Chloride 109 mmol/L (98-107); Estimated GFR (African America 28 (>=60 mL/min/1.73m^2); Estimated GFR (Non-African Ame 23 (>=60 mL/min/1.73m^2); Globulin 4.3 g/dL; Glucose 105 mg/dL (74-106); Potassium 4.4 mmol/L (3.5-5.1); Sodium 143 mmol/L (136-145); Total Protein 8.0 g/dL (6.4-8.2)
[2025-02-09 15:51] LABS: Cast Seen? NONE SEEN #/LPF (NONE SEEN); Crystals Seen? None Seen #/HPF (None Seen); Urine Culture Indicated YES-FRMC
--- NOTE | 2025-02-09 15:51 | CT_ITS ---
The [address] [address] Patient Name: MIRIAM CLARKE MRN: [id number] date: 1975 Sex: F Assigned Patient Location: ER Current Patient Location: ER Accession/Order Number: [id number] Exam Date: 02/09/2025 15:48 Report Date: 02/09/2025 16:07 At the request of: JEREMÍAS PETERS MD Procedure: CT abdomen pelvis wo con CT ABDOMEN AND PELVIS WITHOUT INTRAVENOUS CONTRAST: CLINICAL HISTORY: rt flank pain and hx of stones COMPARISON: CT abdomen and pelvis 04/24/2024 TECHNIQUE: Spiral images were obtained through the abdomen and pelvis without intravenous contrast. This CT exam was performed using one or more following dose reduction techniques: Automated exposure control, adjustment of the mA and/or kV according to patient size, or use of iterative reconstruction technique. FINDINGS: Lung Bases: [Mild lung scarring.] Organs:Gallbladder has been removed. Liver spleen pancreas and adrenal glands appear unremarkable. Atrophic left kidney with nephrolithiasis present largest stone measuring 6 mm within the left renal pelvis. A right ureteral stent is noted with what appears to be a staghorn metallic calculus present encompassing the majority of the calyces extending into the renal pelvis. No hydronephrosis is seen. Aorta appears normal in caliber.[ GI: Stomach is grossly unremarkable. Small bowel appears nondilated. Colonic diverticulosis. Appendix is normal.[ Pelvis:[Urinary bladder is grossly unremarkable. Uterus appears to been removed.] Peritoneum/Retroperitoneum:No free air or free fluid or lymphadenopathy.[ Abd wall/Bones:Abdominal wall demonstrates no acute findings. Osseous structures demonstrate degenerative change. Chronic appearing compression deformity involving L1.[ CT/CT abdomen pelvis wo con IMPRESSION: Atrophic kidney with nephrolithiasis. No obstruction. Right-sided double-J ureteral stent is in place with a large staghorn type calculus involving the right kidney extending into the renal pelvis. No significant hydronephrosis. Impression dictated by: John Vazquez Jr., D.O. 02/09/2025 4:07 PM Dictation Location: [place] [address] Electronically authenticated by: [id number] Y Date: 02/09/2025 16:07
[2025-02-09] MEDS: FENTANYL CITRATE/PF 100 MCG/2 ML VIAL 50 MCG IV (16:33)
--- NOTE | 2025-02-09 17:43 | P.IMHP_ITS ---
Internal Medicine - H&P: HPI History of Present Illness Chief complaint: FLANK PAIN UTI JOSUÉ Narrative: Latasha Bryan is a 50 y/o F, h/o L atrophic kidney, R staghorn calculus with ureteral stent placed in May 2024, presented to [facility] with recurrence of right flank pain, found to have creatinine elevation prompting request for medical admission after discussion with [facility] Urology, started on ceftriaxone and IV fluids. On assessment at bedside on the regular nursing floor on 02/10/2025, patient dexter esting in bed comfortable. States that over the past week has had recurrence of right flank pain, acute worsening yesterday prompting presentation, slight intermittent chills as well as nausea and vomiting for the past 2 days. At present continues to have slight pain related improvement overall with IV medications. Denies any hematuria prior to admission however did have episodes overnight, urine observed as evidence of possible RBC casts/sediment. UA on presentation did show 50-75 RBCs. Does not drink alcohol regularly however did have a few drinks yesterday for her birthday and suspects may have exacerbated pain. In the emergency room, WBC 8.5, hemoglobin 12.1, platelet count 488, sodium 143, potassium 4.4, carbon dioxide 19.3, BUN 27, creatinine 2.27 UA shows WBCs greater than 100, RBCs 50-75, positive leukocyte Estrace positive nitrites, positive occult blood and protein greater than 300. Review of Systems ROS Status of ROS 10 or more systems reviewed and unremark able except as noted in history and below PFSH PFSH Surgical History (Updated 02/09/25 @ 19:56 by Nereyda Sarmiento RN) Hx of cholecystectomy ?Z90.49 - Acquired absence of other specified parts of digestive tract (ICD- 10) Hx of hysterectomy ?Z90.710 - Acquired absence of both cervix and uterus (ICD-10) Family History (Updated 02/09/25 @ 19:57 by Nereyda Sarmiento RN) Mother Family history of COPD (chronic obstructive pulmonary disease) Family history of cancer Father Family history of cancer Social History (Updated 02/09/25 @ 19:59 by Nereyda Sarmiento RN) Within the past year, how often did you have a drink containing alcohol: 2-4 times a month Within the past year, how many standard drinks containing alcohol did you have on a typical day: 1 or 2 Within the past year, how often did you have six or more drinks on one occasion: never Total score: 0 Score interpretation: A score less than 3 is consistent with normal alcohol consumption. Do you use any of these nicotine containing products: vaping products Non-prescribed substance use: cannabis (any form) Highest level of school completed/degree received: Associate degree: occupational, technical, vocational program Are you now , , , , never or living with a partner: In a typical week, how many times do you talk on the telephone with family, friends, or neighbors: 3 or more times per week How often do you get together with friends or relatives: 3 or more times per week Little interest or pleasure in doing things: not at all Feeling down, depressed, or hopeless: not at all Feel stressed/tense/nervous/anxious/difficulty sleeping: very much Life stressors: recent of family or friend Do you think of yourself as: straight/heterosexual Gender Identity: female Meds Home Medications and Allergies Allergies Allergy/AdvReac Type Severity Reaction Status Date / Time levofloxacin (From Levaquin) Allergy Mild rash Verified 02/09/25 15:08 metoclopramide (From Reglan) Allergy Mild rash Verified 02/09/25 15:08 Exam Narrative Exam Narrative: General: cooperative and tired appearing Orientation: alert, awake and oriented x3 Head: normal to inspection Neck: normal visual inspection Cardio: no JVD, regular rate, regular rhythm Chest palpation & inspection: normal inspection of the chest Resp Effort & Inspection: normal respiratory effort Abd: soft, non-tender, non-distended, slight CVA tenderness Extremities: Warm well perfused, no edema Constitutional Vital Signs, click to edit/add: Last Vital Signs Temp 98.4 F 02/09/25 15:09 Pulse 96 H 02/09/25 15:09 Resp 18 02/09/25 15:09 BP 141/101 H 02/09/25 15:09 Pulse Ox 97 02/09/25 15:09 O2 Del Method Room Air 02/09/25 15:09 Internal Medicine - H&P: Reslt Labs Labs: Short CBC 02/09/25 Range/Units 15:28 WBC 8.5 (4.0-11.0) 10^3/uL Hgb 12.1 (12.0-16.0) g/dL Hct 37.1 (36.0-48.0) % Plt Count 488 H (150-450) 10^3/uL BMP 02/09/25 15:28 Sodium 143 Potassium 4.4 Chloride 109 H Carbon Dioxide 19.3 L BUN 27.0 H Creatinine 2.27 H Glucose 105 Calcium 9.8 Liver Function 02/09/25 Range/Units 15:28 Total Bilirubin 0.4 (0.2-1.0) mg/dL AST 22 (15-37) U/L ALT 27 (14-59) U/L Alkaline Phosphatase 102 (46-116) U/L Albumin 3.7 (3.4-5.0) g/dL Urine 02/09/25 Range/Units 15:08 Urine Color Yellow (YELLOW) Urine Clarity Cloudy A (CLEAR) Urine pH 8.0 (5.0-9.0) Ur Specific [place] 1.015 (1.005-1.025) Urine Protein >=300 A (NEG/TRACE) mg/dL Urine Glucose (UA) Negative (NEGATIVE) mg/dL Assessment and Plan Assessment and Plan (1) JOSUÉ (acute kidney injury): (2) Staghorn calculus: (3) UTI (urinary tract infection): Qualifiers: Urinary tract infection type: site unspecified Hematuria presence: with hematuria Qualified Code(s): N39.0 - Urinary tract infection, site not specified; R31.9 - Hematuria, unspecified Plan Latasha Bryan is a 50 y/o F, h/o L atrophic kidney, R staghorn calculus with ureteral stent placed in May 2024, presented to [facility] with recurrence of right flank pain, found to have creatinine elevation prompting request for medical admission after discussion with [facility] Urology, started on ceftriaxone and IV fluids. 1. Complicated UTI with JOSUÉ, presence of staghorn calculus and R ureteral stent - In the emergency room, WBC 8.5, hemoglobin 12.1, platelet count 488, sodium 143, potassium 4.4, carbon dioxide 19.3, BUN 27, creatinine 2.27 UA shows WBCs greater than 100, RBCs 50-75, positive leukocyte Estrace positive nitrites, positive occult blood and protein greater than 300. - continue IV hydration, LR 100 cc/hr - continue rocephin 1 g daily - await blood and urine cultures - daily creatinine, baseline is around 1.1 - if renal function not normalized in next 24-48 hours, will need transfer for further management likely removal of R ureteral stent Diet: regular Daily Labs: CBC, BMP Lines/Drains: PIV DVT ppx: sqh 5k q8h Code status: Full Status: inpatient for complicated UTI and JOSUÉ
[2025-02-09 18:29] VITALS: BP 137/87; PULSE 80; TEMP 36.9; O2SAT 96
[2025-02-09 18:40] VITALS: BP 150/89; PULSE 71; TEMP 36.9; O2SAT 98; BMI 25.7
--- NOTE | 2025-02-09 19:50 | PC.NURSE ---
pink cloudy urine color
[2025-02-09] MEDS: HYDROMORPHONE HCL 0.5 MG/0.5 ML SYRINGE IV (20:05)
[2025-02-10] VITALS (7 sets, daily range): BP systolic 120–147; BP diastolic 65–92; PULSE 60–90; TEMP 36.4–36.9; O2SAT 95–98; BMI 24.9
[2025-02-10] MEDS: HYDROMORPHONE HCL 0.5 MG/0.5 ML SYRINGE IV ×4 (01:53→16:38)
[2025-02-10 05:33] LABS: Hematocrit 33.0 % (36.0-48.0); Hemoglobin 10.3 g/dL (12.0-16.0); Immature Granulocytes Abs Auto 0.01 10^3/uL (0.00-0.03); Immature Granulocytes Pct Auto 0.2 % (0.0-0.5); Lymphocytes Absolute Auto 1.3 10^3/uL (1.2-3.8); Mean Corpuscular HGB Conc 31.2 g/dL (29.9-35.2); Mean Corpuscular Hemoglobin 28.3 pg (26.7-34.0); Mean Corpuscular Volume 90.7 fL (81.0-99.0); Platelet Count 357 10^3/uL (150-450); Red Blood Count 3.64 10^6/uL (4.20-5.40); White Blood Count 6.1 10^3/uL (4.0-11.0)
[2025-02-10 05:44] LABS: Anion Gap 15.3; Blood Urea Nitrogen 22.0 mg/dL (7.0-18.0); Calcium 8.9 mg/dL (8.5-10.1); Carbon Dioxide 22.3 mmol/L (21.0-32.0); Chloride 109 mmol/L (98-107); Estimated GFR (African America 30 (>=60 mL/min/1.73m^2); Estimated GFR (Non-African Ame 25 (>=60 mL/min/1.73m^2); Glucose 86 mg/dL (74-106); Potassium 3.6 mmol/L (3.5-5.1); Sodium 143 mmol/L (136-145)
[2025-02-10] MEDS: PROCHLORPERAZINE 10 MG/2 ML VIAL IV ×3 (09:18→23:03)
[2025-02-10] MEDS: SENNOSIDES/DOCUSATE SODIUM 1 TAB TABLET PO (10:46)
--- NOTE | 2025-02-10 11:20 | CM.NOTE ---
Rounded with . Pt voiced concerns about blood in her urine and wanting her stent removed. Dr Villafuerte would like a Urology consult. I placed a call to [facility] and they stated that no one is supervisor operations from 02/09-02/16. Dr Villafuerte was made aware of this.
--- NOTE | 2025-02-10 14:06 | SWNOTE1 ---
CADE spoke with nurse and earlier pt had some questions for SW and was very emotional. SW stopped in room, pt was sitting up in bed. Pt voiced she has 8 blankets on and her room was very cold. She stated everyone has attempted to turn it up. They called maintenance as well. CADE advised pt that SW will call again. CADE asked if there was any concerns pt had or anything pt needed assistance with? Pt voiced she would like to fill out Medicaid application. SW asked if she has had Medicaid in the past? She voiced it has been several years. She lost her many years ago. She was working as an aide and made too much money, so she took another job at [employer] so she could qualify for Medicaid. She lives in [facility]. CADE will bring pt Medicaid application for pt to complete and will fax it to [facility]. Pt in agreement. Pt voiced no other needs or concerns at this time. CADE printed Medicaid anna off and took to pt along with a pen. CADE also called Alok in maintenance in regards to pt's room being cold and not warming up.
--- NOTE | 2025-02-10 14:28 | PC.NURSE ---
14:05 the [facility] arrives with safety concerns for patient because they were notified by package collector, patient made a comment regarding ending her life . natural resource officer enters room to discuss situation with patient and ensure that patient is not a suicide risk. Officers review discussion they had with the patient and no further concern from the juvenile correctional officer. 14:20 this caption writer and MADELINE enters room and discusses recent events, patient denies any thoughts or plans of harming her self. Patient states this was a misunderstanding, she has no intentions of harming herself and wants to get better that is why she came to the hospital.
[2025-02-10] MEDS: OXYCODONE HCL 5 MG TABLET PO ×2 (15:19→23:03)
--- NOTE | 2025-02-10 15:27 | SWNOTE1 ---
Pt completed Medicaid application. SW sent referral to [facility]. Pt given original back.
[2025-02-11 04:00] VITALS: BP 139/89; PULSE 114; TEMP 36.7; O2SAT 95
[2025-02-11] MEDS: HYDROMORPHONE HCL 0.5 MG/0.5 ML SYRINGE IV ×2 (05:09→15:29)
[2025-02-11 05:37] LABS: Hematocrit 30.9 % (36.0-48.0); Hemoglobin 9.9 g/dL (12.0-16.0); Immature Granulocytes Abs Auto 0.01 10^3/uL (0.00-0.03); Immature Granulocytes Pct Auto 0.2 % (0.0-0.5); Lymphocytes Absolute Auto 1.8 10^3/uL (1.2-3.8); Mean Corpuscular HGB Conc 32.0 g/dL (29.9-35.2); Mean Corpuscular Hemoglobin 28.3 pg (26.7-34.0); Mean Corpuscular Volume 88.3 fL (81.0-99.0); Platelet Count 326 10^3/uL (150-450); Red Blood Count 3.50 10^6/uL (4.20-5.40); White Blood Count 5.7 10^3/uL (4.0-11.0)
[2025-02-11 05:45] LABS: Anion Gap 16.8; Blood Urea Nitrogen 17.0 mg/dL (7.0-18.0); Calcium 9.2 mg/dL (8.5-10.1); Carbon Dioxide 22.3 mmol/L (21.0-32.0); Chloride 109 mmol/L (98-107); Estimated GFR (African America 33 (>=60 mL/min/1.73m^2); Estimated GFR (Non-African Ame 27 (>=60 mL/min/1.73m^2); Glucose 93 mg/dL (74-106); Potassium 4.1 mmol/L (3.5-5.1); Sodium 144 mmol/L (136-145)
[2025-02-11] MEDS: PROCHLORPERAZINE 10 MG/2 ML VIAL IV (07:25)
[2025-02-11 07:54] VITALS: BP 150/91; PULSE 72; TEMP 36.8; O2SAT 97
[2025-02-11] MEDS: SENNOSIDES/DOCUSATE SODIUM 1 TAB TABLET PO (09:29)
--- NOTE | 2025-02-11 09:44 | PM.IMPN1 ---
Progress Note: A&P Assessment and Plan (1) JOSUÉ (acute kidney injury): (2) Staghorn calculus: (3) UTI (urinary tract infection): Qualifiers: Hematuria presence: with hematuria Urinary tract infection type: site unspecified Qualified Code(s): N39.0 - Urinary tract infection, site not specified; R31.9 - Hematuria, unspecified Exam Constitutional Vital Signs, click to edit/add: Last Vital Signs Temp 98.2 F 02/11/25 07:54 Pulse 72 02/11/25 07:54 Resp 20 02/11/25 07:54 BP 150/91 H 02/11/25 07:54 Pulse Ox 97 02/11/25 07:54 O2 Del Method Room Air 02/11/25 07:54 Internal Medicine - PN: Obj Da Labs Labs: Laboratory Results - last 24 hr 02/11/25 05:11 WBC 5.7 RBC 3.50 L Hgb 9.9 L Hct 30.9 L MCV 88.3 MCH 28.3 MCHC 32.0 RDW 14.5 Plt Count 326 MPV 9.9 Neut % (Auto) 45.7 Lymph % (Auto) 30.9 [place] % (Auto) 19.0 H Eos % (Auto) 3.7 Baso % (Auto) 0.5 Neut # (Auto) 2.6 Lymph # (Auto) 1.8 [place] # (Auto) 1.1 H Eos # (Auto) 0.2 Baso # (Auto) 0.0 Abs Immat Gran (auto) 0.01 Imm/Tot Granulo (auto) 0.2 Sodium 144 Potassium 4.1 Chloride 109 H Carbon Dioxide 22.3 Anion Gap 16.8 BUN 17.0 Creatinine 1.97 H Est GFR ( Amer) 33 L Est GFR (Non-Af Amer) 27 L BUN/Creatinine Ratio 8.6 Glucose 93 Calcium 9.2
--- NOTE | 2025-02-11 10:15 | CM.NOTE ---
Rounds made with Dr. Villafuerte, pt continues with hematuria. Discussed with pt transfer to [facility] d/t continued hematuria. Pt in agreement, CM will imitate transfer.
[2025-02-11] MEDS: OXYCODONE HCL 5 MG TABLET PO (11:07)
--- NOTE | 2025-02-11 11:25 | CM.NOTE ---
CM called transfer line at [facility] to initiate transfer, pt is in agreement after speaking with Dr. Villafuerte. Pt continues with hematuria. Face sheet faxed to [phone]
[2025-02-11 12:00] VITALS: BP 121/73; PULSE 59; TEMP 36.8; O2SAT 94
--- NOTE | 2025-02-11 14:51 | PM.DS1 ---
DS: Providers Provider Date of admission: 02/09/25 18:29 Primary care physician: Non-Staff PhysicianMD Admitting clinician: SARAH VERNON Attending physician on admission: SARAH VERNON Attending physician on discharge: SARAH VERNON Discharging clinician: SARAH VERNON DS: Diagnosis Discharge Diagnosis (1) JOSUÉ (acute kidney injury): (2) Staghorn calculus: (3) UTI (urinary tract infection): Qualifiers: Hematuria presence: with hematuria Urinary tract infection type: site unspecified Qualified Code(s): N39.0 - Urinary tract infection, site not specified; R31.9 - Hematuria, unspecified DS: Summary Hospital Course Hospital Course: Latasha Bryan is a 50 y/o F, h/o L atrophic kidney, R staghorn calculus with ureteral stent placed in May 2024, presented to [facility] with recurrence of right flank pain, found to have creatinine elevation prompting request for medical admission after discussion with [facility] Urology, started on ceftriaxone and IV fluids. In the emergency room, WBC 8.5, hemoglobin 12.1, platelet count 488, sodium 143, potassium 4.4, carbon dioxide 19.3, BUN 27, creatinine 2.27 UA shows WBCs greater than 100, RBCs 50-75, positive leukocyte Estrace positive nitrites, positive occult blood and protein greater than 300. Her creatinine improved to 2.11, then 1.97, however she continued to have hematuria with hemoglobin trend from 12.1 on admission to 10.3, then 9.9. Given the presence of R ureteral stent and presentation with blood on u/a, transfer to [facility] for urology evaluation was requested and accepted. Time Spent with Patient Time attestation: Total time spent providing and/or coordinating discharge services: Exam Narrative Exam Narrative: General: cooperative and tired appearing Orientation: alert, awake and oriented x3 Head: normal to inspection Neck: normal visual inspection Cardio: no JVD, regular rate, regular rhythm Chest palpation & inspection: normal inspection of the chest Resp Effort & Inspection: normal respiratory effort Abd: soft, non-tender, non-distended Extremities: Warm well perfused, no edema Constitutional Vital Signs, click to edit/add: Last Vital Signs Temp 98.3 F 02/11/25 12:00 Pulse 59 L 02/11/25 12:00 Resp 20 02/11/25 12:00 BP 121/73 02/11/25 12:00 Pulse Ox 94 L 02/11/25 12:00 O2 Del Method Room Air 02/11/25 12:00 DS: Data Data Completed and Pending Labs on day of discharge: Labs from last 24 hours 02/11/25 05:11 WBC 5.7 RBC 3.50 L Hgb 9.9 L Hct 30.9 L MCV 88.3 MCH 28.3 MCHC 32.0 RDW 14.5 Plt Count 326 MPV 9.9 Neut % (Auto) 45.7 Lymph % (Auto) 30.9 [place] % (Auto) 19.0 H Eos % (Auto) 3.7 Baso % (Auto) 0.5 Neut # (Auto) 2.6 Lymph # (Auto) 1.8 [place] # (Auto) 1.1 H Eos # (Auto) 0.2 Baso # (Auto) 0.0 Abs Immat Gran (auto) 0.01 Imm/Tot Granulo (auto) 0.2 Sodium 144 Potassium 4.1 Chloride 109 H Carbon Dioxide 22.3 Anion Gap 16.8 BUN 17.0 Creatinine 1.97 H Est GFR ( Amer) 33 L Est GFR (Non-Af Amer) 27 L BUN/Creatinine Ratio 8.6 Glucose 93 Calcium 9.2 Discharge Plan Discharge Disposition: [facility]
--- NOTE | 2025-02-11 14:56 | PM.IMPN1 ---
Progress Note: A&P Assessment and Plan (1) JOSUÉ (acute kidney injury): (2) Staghorn calculus: (3) UTI (urinary tract infection): Qualifiers: Hematuria presence: with hematuria Urinary tract infection type: site unspecified Qualified Code(s): N39.0 - Urinary tract infection, site not specified; R31.9 - Hematuria, unspecified Plan Latasha Bryan is a 50 y/o F, h/o L atrophic kidney, R staghorn calculus with ureteral stent placed in May 2024, presented to [facility] with recurrence of right flank pain, found to have creatinine elevation prompting request for medical admission after discussion with [facility], started on ceftriaxone and IV fluids. 1. Complicated UTI with JOSUÉ, presence of staghorn calculus and R ureteral stent - In the emergency room, WBC 8.5, hemoglobin 12.1, platelet count 488, sodium 143, potassium 4.4, carbon dioxide 19.3, BUN 27, creatinine 2.27 UA shows WBCs greater than 100, RBCs 50-75, positive leukocyte Estrace positive nitrites, positive occult blood and protein greater than 300. - continue IV hydration, LR 100 cc/hr - continue rocephin 1 g daily - await blood and urine cultures - daily creatinine, baseline is around 1.1 - if renal function not normalized in next 24-48 hours, will need transfer for further management likely removal of R ureteral stent Diet: regular Daily Labs: CBC, BMP Lines/Drains: PIV DVT ppx: sqh 5k q8h Code status: Full Status: inpatient for complicated UTI and JOSUÉ Internal Medicine - PN: Subj Subjective Interval history: [date of service 02/10/25] Patient seen at bedside, continues to have lower abdominal pain, no nausea or vomiting, does note blood in urine. Exam Narrative Exam Narrative: General: cooperative and tired appearing Orientation: alert, awake and oriented x3 Head: normal to inspection Neck: normal visual inspection Cardio: no JVD, regular rate, regular rhythm Chest palpation & inspection: normal inspection of the chest Resp Effort & Inspection: normal respiratory effort Abd: soft, non-tender, non-distended Extremities: Warm well perfused, no edema Constitutional Vital Signs, click to edit/add: Last Vital Signs Temp 98.3 F 02/11/25 12:00 Pulse 59 L 02/11/25 12:00 Resp 20 02/11/25 12:00 BP 121/73 02/11/25 12:00 Pulse Ox 94 L 02/11/25 12:00 O2 Del Method Room Air 02/11/25 12:00 Internal Medicine - PN: Obj Da Labs Labs: Laboratory Results - last 24 hr 02/11/25 05:11 WBC 5.7 RBC 3.50 L Hgb 9.9 L Hct 30.9 L MCV 88.3 MCH 28.3 MCHC 32.0 RDW 14.5 Plt Count 326 MPV 9.9 Neut % (Auto) 45.7 Lymph % (Auto) 30.9 [place] % (Auto) 19.0 H Eos % (Auto) 3.7 Baso % (Auto) 0.5 Neut # (Auto) 2.6 Lymph # (Auto) 1.8 [place] # (Auto) 1.1 H Eos # (Auto) 0.2 Baso # (Auto) 0.0 Abs Immat Gran (auto) 0.01 Imm/Tot Granulo (auto) 0.2 Sodium 144 Potassium 4.1 Chloride 109 H Carbon Dioxide 22.3 Anion Gap 16.8 BUN 17.0 Creatinine 1.97 H Est GFR ( Amer) 33 L Est GFR (Non-Af Amer) 27 L BUN/Creatinine Ratio 8.6 Glucose 93 Calcium 9.2
--- NOTE | 2025-02-11 15:00 | CM.NOTE ---
Patient and the patients nurse notified that she was accepted at [facility] just waiting on a bed.
[2025-02-11 16:42] VITALS: BP 156/92; PULSE 73; TEMP 36.8; O2SAT 98
== END 2025-02-11 18:20 | disposition short-term general hospital (02) | DRG 469 ==
LOC: ER 18:00 → MS 18:34
PROVIDERS: Admitting Provider Student in an Organized Health Care Education/Training Program; Emergency Provider Emergency Medicine; Visit Provider Student in an Organized Health Care Education/Training Program
DX: N17.9 Acute kidney failure, unspecified (principal); N39.0 Urinary tract infection, site not specified; N20.0 Calculus of kidney; R31.9 Hematuria, unspecified; N26.1 Atrophy of kidney (terminal); Z96.0 Presence of urogenital implants; Z90.49 Acquired absence of other specified parts of digestive tract; Z90.710 Acquired absence of both cervix and uterus; F17.290 Nicotine dependence, other tobacco product, uncomplicated
CPT/HCPCS: 36415; 74176; 80048; 80053; 81001; 84703; 85025; 87040; 87086; 96361; 96374; 96375; 99285; J0696; J0780; J1171; J1885; J2405; J3010; J3490